=== PATIENT | male | born 1945 | race Caucasian/White ===

== ENCOUNTER 2020-04-17 08:36 | Observation (INO) ==
[2020-04-17] MEDS ORDERED: fentaNYL citrate 100 MCG/2 ML VIAL ONE (09:02)
[2020-04-17] MEDS ORDERED: MIDAZOLAM HCL 5 MG/ML 1 ML VIAL ONE (09:02)
[2020-04-17] MEDS ORDERED: CEFAZOLIN 250 MG/ML 1 GM VIAL ONE (09:29)
[2020-04-17] MEDS ORDERED: LIDOCAINE HCL 1% 20 ML VIAL ONE (09:33)
[2020-04-17] MEDS ORDERED: BUPIVACAINE 0.25% 30 ML VIAL ONE (09:33)
[2020-04-17] MEDS ORDERED: BACITRACIN INJ 50,000 UNIT VIAL ONE (09:33)
--- NOTE | 2020-04-17 09:36 | History & Physical Bridge Note ---
Date of Service April 17, 2020 History & Physical Bridge Note I have examined the patient, reviewed the History & Physical and in the interval since the performance of the History & Physical I have noted the following changes of clinical significance: no changes noted
--- NOTE | 2020-04-17 09:36 | Pre Anesthesia Assessment ---
Date of Service April 17, 2020 Pre Sedation Assessment Cardiovascular + bradycardic Respiratory normal respiratory effort, lungs clear to auscultation Pre-Sedation Airway Assessment Smoking Status: Never smoker Hx Sleep Apnea: No Hx Difficult Intubation: No Short, Thick Neck: No Thyromental Distance: < 3.5 Finger Breadths Oral Cavity: + Dental Abnormalities ASA: ASA3 NPO Status Date of Last Intake of Fluids: 04/16/20 Date of Last Intake of Solid Food: 04/16/20 Procedure Planning Contraindications for Sedation: none Current Medications Reviewed: Yes Notes The planned sedation has been discussed with the patient. Informed Consent was obtained. I have identified the patient, determined the appropriateness of sedation and have assessed the patient immediately prior to the procedure. All medicine(s) and interventions are by my order.
--- NOTE | 2020-04-17 11:08 | Post Anesthesia Assessment ---
Date of Service April 17, 2020 Post Sedation Assessment Vital Signs Temp Resp BP Pulse Ox 04/17/20 09:19 36.9 C 18 144/74 H 96 Recovery Score Activity: Moves 4 extremities Respiration: Deep Breath/Cough Circulation: +/-20% PreAnes Value Consciousness: Fully Awake Oxygen Saturation: > 92% On Room Air Discharge Sedation Level of Care: Fast Track Phase II Post Sedation Plan On clinical assessment, the patient appears to have tolerated the sedation without complications. Patient is recovering as anticipated. Patient will continue to be monitored by nursing and may be discharged when sedation discharge criteria are met per below protocol. Upon Completions of procedure up to 15 minutes continue every 5 minute vital signs and the P.A.R. score; then discharge to a Phase I or Fast Track to Phase II per the following guidelines: * Discharge Patient to appropriate Phase II area if PAR is 8 or greater or return to pre- procedure baseline. The post - procedure orders will be as directed. * If PAR score is less than 8 or not return to pre-procedure baseline then patient will follow Phase I monitoring till PAR is reached for Phase II. The Phase I may be done in procedure room or may call to secure a Phase I area. * If naloxone or flumazenil are used for reversal, hold in Phase I for continued monitoring from when last reversal dose was given for a minimum of 60 minutes or longer pending the nurse and/or physician discretion of patient condition before discharge to Phase II. Please call the Sedation Physician to re-evaluate and complete post-note for discharge to Phase II area. Do NOT discharge from procedure sedation or Phase 1 until post- sedation evaluation note is complete by procedure /sedation MD Sedation Discharge Instructions to be given to the patient at discharge to home.
--- NOTE | 2020-04-17 11:09 | Operative Report ---
Post Operative Report Pre & Post Diagnosis SSS, ICM ICD at [facility] Operation Date: 04/17/20 09:30 <No data on this case meets the specified criteria> I identified the patient and participated in the time-out.: Yes Procedure Operation Date: 04/17/20 09:30 Actual Procedures p Insertion ICD w/Existing Single - Rosita Mcfarlane DO Surgeon Rosita Mcfarlane, Pharmacy Director none Estimated Blood Loss 10 Findings Consistent with Post-Op Diagnosis Specimens none Description of Procedure see official report I attest to the content of the Intraoperative Record and any orders documented therein. Any exceptions are noted below.
[2020-04-17] MEDS ORDERED: OXYCODONE/ACETAMINOPHEN 5mg/325mg TAB PO PRN (11:10)
[2020-04-17] MEDS ORDERED: ACETAMINOPHEN 325 MG TAB PO PRN (11:10)
[2020-04-17] MEDS ORDERED: NORCO 5/325MG HOMEPACK PO PRN (11:11)
[2020-04-17] MEDS ORDERED: EPINEPHRINE ADULT AUTO-INJECT 0.3 MG SYR IM PRN (11:11)
[2020-04-17] MEDS ORDERED: NITROGLYCERIN SL 0.4 MG/TAB TAB SL PRN (11:11)
--- NOTE | 2020-04-17 11:17 | Discharge Summary ---
Date of Service April 18, 2020 Admission HPI Per Admitting Provider +fatigue and SOB Admission Exam Per Admitting Provider aaox3, NAD NC/AT, EOMI Supple No JVD Nrl S1/S2, No murmur CTA b/l no w/r/r soft nt/nd no LE edema b/l skin intact no focal deficits Principal Diagnosis SSS s/p upgrade to dual chamber ICD Discharge Exam aaox3, NAD NC/AT, EOMI Supple No JVD Nrl S1/S2, No murmur CTA b/l no w/r/r soft nt/nd no LE edema b/l skin intact no focal deficits left pectoral incision intact, no hematoma mild ecchymosis Discharge Data Allergies Allergy/AdvReac Type Severity Reaction Status Date / Time pioglitazone Allergy Intermediate severe Verified 04/17/20 09:42 headaches Procedures Performed Operation Date: 04/17/20 09:30 Actual Procedures p Insertion ICD w/Existing Single - Rosita Mcfarlane DO s Venogram, Unilateral - Rosita Mcfarlane DO Ordered Studies CXR: No PTX, leads in position ECG: SR ICD Interrogation: Normal function Stable lead testing since implant 04/17/20 06:38 CL Cath Imgs for PACS use only Stat Hospital Course (1) SSS (sick sinus syndrome): (2) Ischemic cardiomyopathy with implantable cardioverter-defibrillator (ICD): (3) Left ventricular apical thrombus: Total Time Total Time Spent Total Time Spent (In Minutes): 40 Total Time Includes: Examination of the Patient, Discharge Planning, Medication Reconciliation and Other Discharge Plan Discharge Items Patient Disposition: Home - Self-Care Reason For Visit: SSS, IVD UPGRADE Discharge Diagnosis: SSS and ICM s/p upgrade to dual chamber ICD Condition on Discharge: Good Activity: As commented below Activity Comment: do not lift the left elbow over the left shoulder for 1 month Lifting: No more than 10 pounds Lifting Comment: do not lift more than 10 pounds with the left arm for 2 weeks Bathing: Keep incision dry Bathing Comment: keep dressing on and dry until wound check next week Sexual Activity: After two weeks Non-emergency contact: Investigative Writer Call non-emergency contact if: you have any medication questions Follow-up/Referrals: Shreyas Miller MD [Primary Care Provider] - Diet: Heart Healthy Addtl Attending Provider Instructions: device and wound check next week at [facility] cardiology If you notice any swelling at the device area call [facility]iology immediately Pending Studies at Discharge: No Stand-Alone Forms: My [facility], Smoking Cessation Medications and DC Order Prescriptions: Continued aspirin [Aspir-81] 81 mg Tablet,Delayed Release (Dr/Ec) 81 mg PO QAM RF: 0 atorvastatin 80 mg Tablet 80 mg PO HS RF: 0 carvedilol 12.5 mg Tablet 12.5 mg PO BID RF: 0 digoxin 250 mcg Tablet 250 mcg PO HS RF: 0 epinephrine 0.3 mg/0.3 mL Auto-Injector 0.3 mg IM UD PRN (Reason: Anaphylaxis) RF: 0 hydralazine 25 mg Tablet 25 mg PO BID RF: 0 hydrocodone-acetaminophen [[place]] 5-325 mg Tablet 1 tab PO BID PRN (Reason: Pain) RF: 0 insulin aspart U-100 [Novolog U-100 Insulin aspart] 100 unit/mL Solution 6 units subcut HS RF: 0 insulin aspart U-100 [Novolog U-100 Insulin aspart] 100 unit/mL Solution 22 unit SUBCUT QDD RF: 0 insulin aspart U-100 [Novolog U-100 Insulin aspart] 100 unit/mL Solution 20 unit SUBCUT QDL RF: 0 Lantus U-100 Insulin 100 unit/mL Solution 30 unit SUBCUT BID RF: 0 isosorbide mononitrate 60 mg Tablet Extended Release 24 Hr 60 mg PO QAM RF: 0 lisinopril 2.5 mg Tablet 2.5 mg PO HS RF: 0 metformin 1,000 mg Tablet 1,000 mg PO BID RF: 0 nitroglycerin [Nitrostat] 0.4 mg Tablet, Sublingual 0.4 mg Sublingual UD PRN (Reason: Chest Pain) RF: 0 warfarin 5 mg Tablet 5 mg PO 6XWK RF: 0 warfarin 2.5 mg Tablet 2.5 mg PO WK RF: 0 cetirizine [Zyrtec] 10 mg Tablet 10 mg PO QAM RF: 0 tamsulosin 0.4 mg Capsule 0.4 mg PO QPM RF: 0 empagliflozin 25 mg Tablet 25 mg PO QAM RF: 0 ferrous sulfate [Iron (ferrous sulfate)] 325 mg (65 mg iron) Tablet 325 mg PO Q OTHER DAY RF: 0 Discharge Orders: Discharge Order (Routine); Ordered 04/18/20 Ordered By: Rosita Mcfarlane Admission Data Admit Date/Time: 04/17/20 12:37 Attending Provider: Rosita Mcfarlane Admit Provider: Rosita Mcfarlane Primary Care Provider: Shreyas Miller
[2020-04-17] MEDS ORDERED: INSULIN ASPART PER UNIT SQ SCH ×3 (11:30→21:00)
[2020-04-17 13:30] LABS: INR 1.6 (0.9-1.1); Prothrombin Time 16.8 Seconds (9.0-12.0)
[2020-04-17 13:36] LABS: Creatinine Clr Calc Pharmacy 70.9 ml/min; Est GFR (African American) 96.5; Est GFR (Non-African American) 83.3
[2020-04-17] MEDS ORDERED: GLUCOSE 40% GEL 15 GM TUBE PO PRN (14:00)
[2020-04-17] MEDS ORDERED: CARBOHYDRATES FOR HYPOGLYCEMIA PO PRN (14:00)
[2020-04-17] MEDS ORDERED: GLUCOSE 10 TABS/TUBE PO PRN (14:00)
[2020-04-17] MEDS ORDERED: DEXTROSE 50% 50 ML SYRINGE IV PRN (14:00)
[2020-04-17] MEDS ORDERED: GLUCAGON FOR INJ 1 MG VIAL IM PRN (14:00)
--- NOTE | 2020-04-17 15:44 | Electrocardiogram Report ---
Test Reason : Blood Pressure : / mmHG Vent. Rate : 071 BPM Atrial Rate : 071 BPM P-R Int : 256 ms QRS Dur : 126 ms QT Int : 376 ms P-R-T Axes : 062 -61 103 degrees QTc Int : 408 ms Sinus rhythm with 1st degree A-V block Left axis deviation Non-specific intra-ventricular conduction block Minimal voltage criteria for LVH, may be normal variant Nonspecific T wave abnormality Abnormal ECG When compared with ECG of 25-NOV-2018 22:25, Criteria for Anteroseptal infarct are no longer Present T wave inversion more evident in Lateral leads Confirmed by Bakari Cuevas ([id number]) on 04/17/2020 3:43:44 PM Referred By: Rosita Mcfarlane Confirmed By:John Cuevas
[2020-04-17] MEDS ORDERED: WARFARIN SOD 5 MG TAB PO SCH (16:00)
[2020-04-17] MEDS: METFORMIN HCL 500 MG TAB PO SCH (16:51)
[2020-04-17] MEDS: INSULIN ASPART 100 UNITS/ML 3 ML PEN SC SCH ×2 (16:52→20:24)
[2020-04-17] MEDS: carvediloL 12.5 MG TAB PO SCH (20:20)
[2020-04-17] MEDS: INSULIN GLARGINE SOLOSTAR 100 UNITS/ML 3 ML PEN SC SCH (20:23)
[2020-04-17] MEDS ORDERED: ATORVASTATIN 40 MG TAB PO SCH (21:00)
[2020-04-17] MEDS ORDERED: DIGOXIN 0.25 MG TAB PO SCH (21:00)
[2020-04-17] MEDS ORDERED: TAMSULOSIN HCL 0.4 MG CAP PO SCH (21:00)
--- NOTE | 2020-04-18 07:44 | XRay Report ---
XR chest 2V PA/lateral CLINICAL HISTORY: Pacemaker replacement COMPARISON STUDY: November 2018 FINDINGS: The heart is mildly enlarged. There is aortic tortuosity. The single chamber ICD has been r eplaced with a dual chamber ICD. There is no pneumothorax. Lead position is unremarkable. There is no focal pulmonary consolidation. There are no pleural effusions. IMPRESSION: No evidence of pneumothorax status post left subclavian pacemaker placement ACT 112: Negative or not required by law. Electronically signed by: Brandon Munoz M.D. 04/18/2020 7:42 AM
[2020-04-18] MEDS: INSULIN ASPART 100 UNITS/ML 3 ML PEN SC SCH (07:49)
[2020-04-18] MEDS: carvediloL 12.5 MG TAB PO SCH (07:49)
[2020-04-18] MEDS: METFORMIN HCL 500 MG TAB PO SCH (07:50)
[2020-04-18] MEDS: INSULIN GLARGINE SOLOSTAR 100 UNITS/ML 3 ML PEN SC SCH (08:00)
[2020-04-18 08:08] VITALS: PULSE 70
[2020-04-18] MEDS ORDERED: ISOSORBIDE MONO EXTENDED REL 60 MG TABCR PO SCH (09:00)
[2020-04-18] MEDS ORDERED: CETIRIZINE HCL 10 MG TABLET PO SCH (09:00)
[2020-04-18] MEDS ORDERED: FERROUS SULFATE 325 MG TAB PO SCH (09:00)
[2020-04-18] MEDS ORDERED: ASPIRIN 81 MG ECTAB PO SCH (09:00)
[2020-04-18 11:14] VITALS: BP 127/65; TEMP 97.7; O2SAT 94
[2020-04-23] MEDS ORDERED: WARFARIN SOD 2.5 MG TAB PO SCH (16:00)
--- NOTE | 2020-04-26 12:45 | Coding Letter ---
A supporting diagnosis is required for the test/procedure performed on this patient in order for us to be reimbursed by the patient's insurance. Please provide a supporting diagnosis for the following test/procedure listed below next to the test name along with your signature. *If there is no additional diagnosis for this patient that would support the following test/procedure please document that below next to the test/procedure. Test(s)/Procedure(s) that require a supporting diagnosis: * CPT 11568 Insrt pulse gen w/singl lead DIAGNOSIS: Provider Signature: Date: Thank you Stacey Oviedo [employer] Once completed, please kindly fax back to [phone] For questions please call [phone] [facility]
--- NOTE | 2020-05-02 10:30 | Operative Report (OR) ---
DATE OF OPERATION: 04/17/2020 PREOPERATIVE DIAGNOSES: Sick sinus syndrome, ischemic cardiomyopathy, single chamber ICD at elective replacement indicator. POSTOPERATIVE DIAGNOSES: Sick sinus syndrome, ischemic cardiomyopathy, single chamber ICD at elective replacement indicator. PROCEDURE: Upgrade from a single chamber implantable cardiac defibrillator to a dual chamber rate responsive implantable cardiac defibrillator along with the peripheral venogram under fluoroscopic guidance. SURGEON: Rosita Mcfarlane DO. ASSISTANTS: None. ANESTHESIA: Monitored conscious sedation administered under my supervision by Shalonda Miles. Start time 9:56, end time 11:06. Total of 4 mg of Versed, 100 mcg of fentanyl. INTRAVENOUS FLUIDS: 30 mL. ANTIBIOTICS: 1 gram of Ancef. CONTRAST: 10 mL. URINE OUTPUT: None. SPECIMENS: None. FINDINGS: See below. DRAINS: None. INDICATIONS: This 74-year-old gentleman with past medical history for ischemic cardiomyopathy where he is status post an ICD in 01/2011, coronary artery disease, history of PCI to the dominant circ in 05/2011, chronic LAD occlusion with recanalization with a remote anterior apical MS with apical aneurysm in 1991, diabetes on insulin, paroxysmal atrial fibrillation on digoxin and Coumadin as well as Coreg, CHADS2-VASc score of 5, hypertension, hyperlipidemia, emphysema, and gastroesophageal reflux disease and most recently evidence of sick sinus syndrome. He was recommended upgrade to a dual chamber pacemaker and a generator change. CONSENT: Consent was obtained prior to the patient going into electrophysiology lab. The patient was informed of the risks, benefits and alternative procedure. Risks include but not limited to sudden cardiac , cardiac arrhythmias, cerebrovascular accident, myocardial infarction, injury to the blood vessels, chamber of the heart, lung, bleeding, and infection. The patient understood these risks and agreed with procedure as planned. Informed consent was obtained. DESCRIPTION OF THE PROCEDURE: The patient was brought into the electrophysiology lab in a fasting state. He was connected to continuous patient monitor. Timeout was performed to ensure patient identity and procedure correctly. He received prophylactic antibiotics prior to incision. He was prepped and draped over the left infraclavicular space in normal surgical standard fashion. Monitored conscious sedation was given throughout the procedure for patient's comfort level. [place] precaution was obtained throughout the procedure. 10 mL of 1% lidocaine, bupivacaine mixture were given over the prior surgical incision. Incision was made with prior surgical incision. Blunt dissection performed down to the pulse generator and that was removed from the body and then a peripheral venogram was performed to identify the venous system and subclavian access was obtained through a needlestick without any problems. The guidewire was inserted without any resistance. An 8-Martiniquais sheath was inserted over the guidewire without any resistance. Dilator was removed and the right atrial lead was advanced into right atrium and positioned into the right atrial appendage. I did have to reposition it once. I ended up using the preformed J kim curve. There was adequate pacing and sensing thresholds and no diaphragmatic stimulation with high output pacing. The 8-Martiniquais sheath was peeled away and lead was fixated to pectoralis muscle using 0 silk suture. The capsule was disrupted inferiorly and caudally to allow for new blood flow, right ventricular lead was checked intraoperatively, see below for results. Then the pocket was flushed with copious amounts of bacitracin saline wash and inspected for hemostasis. The new generator was attached to the leads making sure that the pins were in appropriate position, passed set screw and set screws were all tightened. Pulse generator was then placed in a Tyrx pouch followed then by being placed in the pocket. The incision was then closed in 3-layer fashion, making sure that the leads were lying flat beneath the device. The incision was then closed in 3-layer fashion with 2-0 Vicryl interrupted suture followed by 3-0 Vicryl interrupted suture followed by 4-0 Monocryl running stitch and Dermabond was applied followed by a Telfa and micropore dressing. EQUIPMENT: 1. Explanted generator is a Eduin II [id number], serial number [id number], implanted 01/06/2011. 2. New pulse generator is a Medtronic Evera MRI XTDR SureScan [id number], serial number [id number]. 3. Right atrial lead Medtronic 5076-52 cm, serial number [id number]. 4. Right ventricular lead, 6935-65 cm, serial number [id number]. INTRAOPERATIVE TESTIN. Right atrial lead: P waves 2.4 millivolts, impedance 510 ohms, threshold 2 volts at 0.4 milliseconds. 2. Right ventricular lead: R waves 9.8 millivolts, impedance 457 ohms, threshold 1 volt at 0.4 milliseconds. FINAL PARAMETERS TO THE DEVICE: 1. Right atrial lead: P waves 2 millivolts, impedance 437 ohms, threshold 1.5 volts at 0.4 milliseconds. 2. Right ventricular lead: R-wave 10.1 millivolts, impedance 399 ohms, threshold 1 volt at 0.4 milliseconds. 3. The RV coil was 78 ohms. FINAL PARAMETERS: MVP-R 60/130, right atrial amplitude 3.5 volts, pulse width 0.4 milliseconds, sensitivity 0.3 millivolts. Right ventricular amplitude 2 volts, pulse width 0.4 milliseconds, sensitivity 0.3 millivolts, a VT monitor zone at 140 beats per minute for 32 detection intervals, VT zone 167 beats per minute for 16 detection intervals and VF zone at 200 beats per minute for 30/40 detection intervals. IMPRESSION: Successful upgrade from a single chamber rate responsive implantable cardiac defibrillator to a dual chamber rate responsive implantable cardiac defibrillator along with peripheral venogram under fluoroscopic guidance secondary to sick sinus syndrome and ischemic cardiomyopathy and ICD at elective replacement indicator. PLAN: Monitor patient overnight, 12-lead ECG, chest x-ray. He cannot lift left elbow or left shoulder for 1 month. He cannot lift more than 10 pounds with the left arm for 2 weeks. He is to leave the dressing on and dry until his wound check next week. I attest to the content of the Intraoperative Record and any orders documented therein. Any exception s are noted below.
== END 2020-04-18 12:19 | disposition home or self-care (01) ==
LOC: EP 08:36 → 2S 08:36

== ENCOUNTER 2022-04-17 12:46 | Inpatient (IN) ==
[2022-04-17] MEDS ORDERED: PANTOprazole 80 MG in DEXTROSE 5% 100 ML IV ONE (13:06)
[2022-04-17] MEDS ORDERED: SODIUM CHLORIDE 0.9% 1000ML 1,000 ML IV SCH (13:15)
[2022-04-17 13:30] LABS: Basophils # (auto) 0.07 K/uL (0-0.2); Basophils % (auto) 0.7 %; Eosinophils # (auto) 0.38 K/uL (0-0.50); Eosinophils % (auto) 3.6 %; Hematocrit (blood only) 25.1 % (40.1-51.0); Hemoglobin 7.9 g/dl (14.0-18.0); Immature Granulocytes # (auto) 0.04 K/uL (0.00-0.02); Immature Granulocytes % (auto) 0.4 %; Lymphocytes # (auto) 2.74 K/uL (1.2-3.4); Mean Corpuscular Hemoglobin 29.5 pg (25.0-34.0); Mean Corpuscular Hgb Conc 31.5 g/dL (32.0-36.0); Mean Corpuscular Volume 93.7 fL (80.0-100.0); Mean Platelet Volume 10.5 fL (9.4-12.4); Monocytes # (auto) 1.39 K/uL (0.24-0.82); Monocytes % (auto) 13.2 %; Neutrophils # (auto) 5.93 K/uL (1.4-6.5); Neutrophils % (auto) 56.1 %; Platelet Count 292 K/uL (130-400); RDW Coefficient of Variation 14.1 % (11.5-14.5); RDW Standard Deviation 47.4 fL (36.4-46.3); Red Blood Count 2.68 M/uL (4.63-6.08); White Blood Count 10.55 K/ul (4.8-10.8)
[2022-04-17 13:56] LABS: BUN Creatinine Ratio 19.2 (10-20); Creatinine Clr Calc Pharmacy 49.5 ml/min; Est GFR (Non-African American) 55.2 ml/min; INR 4.5 (0.9-1.1); Partial Thromboplastin Ratio 1.7
[2022-04-17 14:03] LABS: Polychromasia 1+
[2022-04-17 14:11] LABS: Partial Thromboplastin Time 45.6 Seconds (21.0-31.0)
[2022-04-17] MEDS ORDERED: PHYTONADIONE 5 MG in DEXTROSE 5% 50 ML IV ONE (14:15)
[2022-04-17] MEDS: PANTOprazole 40 MG in DEXTROSE 5% 100 ML IV SCH ×3 (14:39→23:07)
[2022-04-17] MEDS ORDERED: SODIUM CHLORIDE 0.9% 250 ML IV PRN (14:46)
--- NOTE | 2022-04-17 15:21 | Electrocardiogram Report ---
Test Reason : Blood Pressure : / mmHG Vent. Rate : 080 BPM Atrial Rate : 080 BPM P-R Int : 288 ms QRS Dur : 138 ms QT Int : 382 ms P-R-T Axes : 090 -65 106 degrees QTc Int : 440 ms Sinus rhythm with 1st degree A-V block with occasional Premature ventricular complexes Left axis deviation Right bundle branch block Cannot rule out Anteroseptal infarct (cited on or before 13-NOV-1997) T wave abnormality, consider lateral ischemia Abnormal ECG When compared with ECG of 28-JUN-2020 04:24, Premature ventricular complexes are now Present T wave inversion less evident in Lateral leads Confirmed by Bakari Cuevas ([id number]) on 04/17/2022 3:21:16 PM Referred By: REFERRED SELF Confirmed By:John Cuevas
--- NOTE | 2022-04-17 15:52 | History & Physical Report ---
Date of Service April 17, 2022 Assessment & Plan (1) Anemia: (2) Heme positive stool: (3) Supratherapeutic INR: (4) Acute renal insufficiency: (5) Ischemic cardiomyopathy with implantable cardioverter-defibrillator (ICD): (6) Paroxysmal A-fib: (7) Diabetes: (8) Hypertension: Plan This is a 76-year-old male who has a significant past medical history of insulin-dependent T2DM, ischemic cardiomyopathy with defibrillator in place, SSS status post PPM, history of left ventricular apical thrombus, PAF anticoagulated on warfarin, CAD, HTN, HLD who presents [facility] ED [facility]. Anemia Heme positive stool Supratherapeutic INR Possible UGIB Iron deficency Anemia Admit to telemetry Type and cross, transfuse [address] 1 on hold Blood consent obtained by Dr. Salcedo continue PPI bolus and gtt clear liquid diet, NPO after midnight consult GI, likely EGD in a.m. hold warfarin, 5mg Vit K given h/h and inr @ 2200 anemia panel ordered - ferritin low at 7.6, on iron 3x weekly consider Venofer infusions once hgb stable, increase iron to daily and titrate as pt able to tolerate egd 06/25 - normal c scope 03/2020 - polyps with polypectomy Acute renal insufficiency mild elevation in bun/cr from baseline likely 2/2 to anemia follow bmp Ischemic Cardiomyopathy with ICD In place hx of SSS s/p ppm CAD HTN HLD Continue aspirin, Coreg, hydralazine, Imdur, lisinopril and rosuvastatin Daily weights, strict I's and O's Currently euvolemic Monitor volume status with transfusion Last echocardiogram 12/2020 revealed EF 30 to 35%, AV sclerosis, mild TR Insulin-dependent T2DM Last A1c 7.1 on 04/15/2022 Lantus/NovoLog per protocol Hold metformin and Jardiance Consult with pharmacy, appreciate their input PAF Supratherapeutic INR Continue digoxin and carvedilol Warfarin on hold due to elevated INR and concern for GI bleeding Monitor daily INR, currently regular rate and rhythm DVT prophylaxis: None in setting of elevated INR and suspected GI bleed Dispo: PCU, likely EGD in a.m. n.p.o. after midnight Full code PCP: Dr. Miller Pt was seen and examined in collaboration with Dr. Salcedo, please see addendum History of Present Illness Chief Complaint: [facility] to [facility] h[facility]. Primary Care Provider: Shreyas Miller MD This is a 76-year-old male who has a significant past medical history of insulin-dependent T2DM, ischemic cardiomyopathy with defibrillator in place, SSS status post PPM, history of left ventricular apical thrombus, PAF anticoagulated on warfarin, CAD, HTN, HLD who presents to ED [facility] to [facility] due to [facility] hemoglobin. Over the last 2 months patient has reported increase in generalized weakness, easy fatigability and lightheadedness/dizziness. Over the past 2 weeks he felt as if he could pass out especially with quick movements. He denies any nikita syncope. He denies any recent illness, fever, chills, sweats, chest pain, shortness of breath, HARKINS, palpitations, nausea, vomiting, abdominal pain, postprandial pain, hematuria, dysuria, increased urgency or frequency with urination or epistaxis. He has been moving his bowels but does not look at them and is unsure if he has any blood in his stool or dark tarry stool. He denies any prior history of GI bleeding. He did have an EGD for review and outpatient records in June 2021 which was relatively unremarkable. He is on long-term anticoagulation secondary to A. fib. He has been taking Coumadin for, "many years." He denies any prior history of transfusion. He did follow with hematology in the past secondary to low hemoglobin and was told to take iron. In ED patient remained hemodynamically stable. His hemoglobin and hematocrit was 7.9 and 25.1 respectively. His INR was supratherapeutic at 4.5. His BUN and creatinine was mildly elevated at 24 and 1.25. He was started on Protonix bolus and drip. He was Hemoccult positive in ED. He also received 40 mg IV vitamin K. Allergies Allergy/AdvReac Type Severity Reaction Status Date / Time house dust mite Allergy Severe facial Verified 06/25/21 12:45 swelling venom-honey bee Allergy Severe Anaphylaxis Verified 06/25/21 12:45 pioglitazone Allergy Intermediate severe Verified 06/25/21 12:45 headaches Home Medications Medication Instructions Recorded Confirmed Type carvedilol 12.5 mg tablet 6.25 mg PO BID 11/25/18 04/17/22 History digoxin 250 mcg (0.25 mg) tablet 250 mcg PO HS 11/25/18 04/17/22 History epinephrine 0.3 mg/0.3 mL 0.3 mg IM UD PRN Anaphylaxis 11/25/18 04/17/22 History injection, auto-injector hydralazine 25 mg tablet 25 mg PO BID 11/25/18 04/17/22 History insulin aspart U-100 100 unit/mL See Rx Instructions .Route .COMPLEX 11/26/18 04/17/22 History subcutaneous solution (Novolog U-100 Insulin aspart) insulin glargine 100 unit/mL 60 unit subcut QAM 11/26/18 04/17/22 History subcutaneous solution (Lantus U-100 Insulin) isosorbide mononitrate 60 mg 60 mg PO QAM 11/26/18 04/17/22 History tablet,extended release 24 hr lisinopril 2.5 mg tablet 2.5 mg PO HS 11/26/18 04/17/22 History metformin 1,000 mg tablet 1,000 mg PO BID 11/26/18 04/17/22 History nitroglycerin 0.4 mg sublingual 0.4 mg sublingual UD PRN Chest Pain 11/26/18 04/17/22 History tablet (Nitrostat) warfarin 5 mg tablet 5 mg PO DAILY 11/26/18 04/17/22 History cetirizine 10 mg tablet (Zyrtec) 10 mg PO QAM 02/29/20 04/17/22 History empagliflozin 25 mg tablet 25 mg PO QAM 02/29/20 04/17/22 History ferrous sulfate 325 mg (65 mg 325 mg PO 3XWK 02/29/20 04/17/22 History iron) tablet (Iron (ferrous sulfate)) tamsulosin 0.4 mg capsule 0.4 mg PO HS 02/29/20 04/17/22 History aspirin 81 mg tablet,delayed 81 mg PO QAM 09/20/20 04/17/22 History release hydrocodone 5 mg-acetaminophen 325 1 tab PO BID PRN Pain 04/17/22 04/17/22 History mg tablet rosuvastatin 40 mg tablet 40 mg PO DAILY 04/17/22 04/17/22 History Past Med/Surg History Medical History (Updated 04/17/22 @ 15:54 by Nadja Diaz PA-C) Anemia BPH (benign prostatic hyperplasia) CAD (coronary artery disease) s/p PCI of Cx 2010; chronic LAD occlusion with recannulation Diabetes mellitus, type 2 Emphysema of lung Heart attack --follows with Dr. Maldonado Hyperlipidemia Hypertension ICD (implantable cardioverter-defibrillator) in place originially placed 2010--medtronic @ [facility]. replacement with dual chamber @ [facility] 04/17/2020 Ischemic cardiomyopathy with implantable cardioverter-defibrillator (ICD) s/p ICD generator change with upgrade to dual chamber Left ventricular apical thrombus On Coumadin On anticoagulant therapy warfarin daily Paroxysmal A-fib On digoxin, warfarin, coreg Surgical History History of cardiac cath x2--- x1 stent @ [facility] History of colonoscopy with polypectomy last 03/08/20 History of esophagogastroduodenoscopy (EGD) last 03/08/20 History of heart artery stent (1) 2010 @ [facility] History of tonsillectomy and adenoidectomy History of tooth extraction all teeth Family History Other Cancer Heart disease No family history of adverse response to anesthesia No family history of bleeding disorder No pertinent family history Social History Smoking Status: Former smoker Second Hand Exposure: No; Hx Alcohol Use: No Hx Substance Use: No Preferred Language: Luxembourgish Communication Ability: Effective Vegetable Grower Required: No Beliefs That Will Affect Care: None marital status: Current Living Situation: Spouse Feels Safe at Home: Yes Assistive Devices: Denture - Upper, Denture - Lower, Glasses and Hearing Aid - Bilateral Review of Systems Review of Systems: All systems reviewed & are unremarkable except as noted in HPI & below Physical Exam Physical Exam: Constitutional: WD/WN, Pallor, vitals as above, NAD, sitting up in bed, pleasant, conversing easily Head: Normocephalic, Atraumatic Eyes: PERRL, conjunctivae normal, anicteric sclerae ENMT: external ear and nose normal, oropharynx normal Neck: trachea midline, no thyromegaly normal visual inspection Respiratory: normal respiratory effort, lungs clear to auscultation, no wheeze, rales, rhonchi. Normal insp/exp effort, no accessory muscle use Cardiovascular: RRR, no murmur, no edema Vessels: no JVD or carotid bruit Chest: normal inspection of chest Abdomen: normal bowel sounds, soft, nontender, no hepatosplenomegaly Musculoskeletal: no cyanosis or clubbing, extremities motor strength 5/5 Skin: no rashes, warm and dry normal turgor Neurologic: PERRL, EOMI, accommodation nl, no face palsy, no dysarthria CN's II-XI intact bilaterally and moves all extremities Psychiatric: A+Ox3, euthymic affect Lymphatic: no cervical or axillary lymphadenopathy : deferred Results & Data Results & Data ([facility]) Vital Signs (Past 12 Hours) Vital Signs Temp Pulse Pulse Resp BP BP Pulse Ox 04/17/22 15:15 36.7 C 76 19 127/54 L 96 04/17/22 14:42 73 18 106/51 L 98 04/17/22 13:17 67 16 98 04/17/22 13:17 76 16 110/46 L 98 04/17/22 12:49 36.1 C L 85 20 112/55 L 97 O2 Del Method 04/17/22 15:15 04/17/22 14:42 Room Air 04/17/22 13:17 Room Air 04/17/22 13:17 Room Air 04/17/22 12:49 Room Air Medications Administered Medication List Sodium Chloride (Nss 1000ml) 1,000 mls @ 80 mls/hr IV .[id number] [facility] Stop: 05/17/22 13:14 Last Admin: 04/17/22 13:35 Dose: 80 mls/hr Documented By: RANDALL Pantoprazole Sodium 40 mg/ (Dextrose) 100 mls @ 20 mls/hr IV Q5H [facility] Stop: 05/17/22 13:14 Last Admin: 04/17/22 14:39 Dose: 20 mls/hr Documented By: RANDALL Discontinued Medications Pantoprazole Sodium 80 mg/ (Dextrose) 120 mls @ 400 mls/hr IV NOW ONE Stop: 04/17/22 13:23 Last Infusion: 04/17/22 14:41 Dose: 0 mls/hr Documented By: Admin: 04/17/22 13:55 Dose: 400 mls/hr Documented By: RANDALL Phytonadione 5 mg/ Dextrose 50.5 mls @ 101 mls/hr IV ONE ONE Stop: 04/17/22 14:44 Last Admin: 04/17/22 15:00 Dose: 101 mls/hr Documented By: RANDALL ECG Rate (beats per minute): 80 Rhythm: normal sinus Findings: + 1st degree AV block and + PVC COVID-19 Results Results COVID-19 Adm Lab Results: RBC 2.68 M/uL (4.63-6.08) L 04/17/22 WBC 10.55 K/ul (4.8-10.8) 04/17/22 Hgb 7.9 g/dl (14.0-18.0) L 04/17/22 Hct 25.1 % (40.1-51.0) L 04/17/22 Plt Count 292 K/uL (130-400) 04/17/22 Neutrophils (%) (Auto) 56.1 % 04/17/22 Lymphocytes (%) (Auto) 26.0 % 04/17/22 Monocytes # (Auto) 1.39 K/uL (0.24-0.82) H 04/17/22 Eosinophils # (Auto) 0.38 K/uL (0-0.50) 04/17/22 Immature Granulocyte % (Auto) 0.4 % 04/17/22 Neutrophils # (Auto) 5.93 K/uL (1.4-6.5) 04/17/22 Lymphocytes # (Auto) 2.74 K/uL (1.2-3.4) 04/17/22 Monocytes # (Auto) 1.39 K/uL (0.24-0.82) H 04/17/22 Eosinophils # (Auto) 0.38 K/uL (0-0.50) 04/17/22 Basophils # (Auto) 0.07 K/uL (0-0.2) 04/17/22 Immature Granulocyte # (Auto) 0.04 K/uL (0.00-0.02) H 04/17 Polychromasia 1+ 04/17/22 Na 139 mmol/L (136-145) 04/17/22 K 4.0 mmol/L (3.5-5.1) 04/17/22 Cl 107 mmol/L (98-107) 04/17/22 CO2 24 mmol/L (21-32) 04/17/22 Anion Gap 8 (3-11) 04/17/22 BUN 24 mg/dl (6-23) H 04/17/22 Creatinine 1.25 mg/dl (0.6-1.4) 04/17/22 BUN/Creatinine Ratio 19.2 (10-20) 04/17/22 Glucose Level 97 mg/dl (70-99(Fasting)) 04/17/22 Ca 9.0 mg/dl (8.5-10.1) 04/17/22 Ferritin 7.6 ng/ml (8-388) L 04/17/22 PTT 45.6 Seconds (21.0-31.0) H* 04/17/22 INR 4.5 (0.9-1.1) H 04/17/22 SARS-CoV-2, RNA, NAAT NEGATIVE (NEGATIVE) 04/17/22 Code Status & VTE Plan Code Status FULL CODE VTE Prophylaxis Plan VTE Prophylaxis will be ordered: No Supervising Physician Co-Signing Physician Notes Patient was seen and examined independently at bedside. Chart reviewed. Case discussed with Nadja JOHNSTON and agree with the documentation above. In summary, this is a 76 year old male with h/o PAF on coumadin, ischemic CM s/p ICD, DM-2 who was sent to ED by his PCP at [facility] for low Hb. Complains of dizziness and shortness of exertion for the past few months. Denies any NSAIDs, abd pain, hematemesis, rectal bleeding. No h/o VTE, TIA, CVA. On exam- AAO, lying comfortably in bed, on room air, chest clear, heart sounds regular, normal, abd benign, no edema. Hemoccult positive in ED. Found to have Hb drop from 14.5 in 09/2021 to 7.9 today. INR 4.5 and was reversed with vit K. Transfused 1 U of PRBC. Recheck Hb and transfuse as needed. On iron pills 3/wk for few years but still iron deficient in labs- will give iv venofer D1/3. States had EGD/colonoscopy 4 years back and was said to be unremarkable. Trend H&H and transfuse as needed but low suspicion for acute bleeding, likely slow ongoing gi bleeding. Continue IV PPI. Hold coumadin until cleared by GI. Repeat INR and Hb in am. NPO after midnight for possible endoscopic evaluation tomorrow. GI consulted. Rest as per the note above. Daughter updated at bedside.
[2022-04-17 15:58] LABS: Ferritin 7.6 ng/ml (8-388)
[2022-04-17 16:06] LABS: Folate (Folic Acid) 22.01 ng/ml (>5.38)
[2022-04-17] MEDS: IRON SUCROSE 400 MG in SODIUM CHLORIDE 0.9% 250 ML IV SCH (18:34)
--- NOTE | 2022-04-17 18:41 | Emergency Department Note ---
History of Present Illness General Chief complaint: Referred by Doctor Stated complaint: internal bleeding, Dr mendoza Time Seen by Provider: 04/17/22 12:55 History of Present Illness Provider complaint: Abnormal blood work Associated symptoms: + weakness; no chest pain, no cough, no fever/chills, no headaches, no nausea/vomiting or no shortness of breath 76-year-old male presents emergency department for abnormal blood work. Patient reports that his PCP told him to come to the emergency department because they thought he had internal bleeding. Patient reports fatigue. He denies any chest pain difficulty breathing melena hematochezia hematuria or dysuria. No fevers. Home Medications Medication Instructions Recorded Confirmed Type carvedilol 12.5 mg tablet 6.25 mg PO BID 11/25/18 04/17/22 History digoxin 250 mcg (0.25 mg) tablet 250 mcg PO HS 11/25/18 04/17/22 History epinephrine 0.3 mg/0.3 mL 0.3 mg IM UD PRN Anaphylaxis 11/25/18 04/17/22 History injection, auto-injector hydralazine 25 mg tablet 25 mg PO BID 11/25/18 04/17/22 History insulin aspart U-100 100 unit/mL See Rx Instructions .Route .COMPLEX 11/26/18 04/17/22 History subcutaneous solution (Novolog U-100 Insulin aspart) insulin glargine 100 unit/mL 60 unit subcut QAM 11/26/18 04/17/22 History subcutaneous solution (Lantus U-100 Insulin) isosorbide mononitrate 60 mg 60 mg PO QAM 11/26/18 04/17/22 History tablet,extended release 24 hr lisinopril 2.5 mg tablet 2.5 mg PO HS 11/26/18 04/17/22 History metformin 1,000 mg tablet 1,000 mg PO BID 11/26/18 04/17/22 History nitroglycerin 0.4 mg sublingual 0.4 mg sublingual UD PRN Chest Pain 11/26/18 04/17/22 History tablet (Nitrostat) warfarin 5 mg tablet 5 mg PO DAILY 11/26/18 04/17/22 History cetirizine 10 mg tablet (Zyrtec) 10 mg PO QAM 02/29/20 04/17/22 History empagliflozin 25 mg tablet 25 mg PO QAM 02/29/20 04/17/22 History ferrous sulfate 325 mg (65 mg 325 mg PO 3XWK 02/29/20 04/17/22 History iron) tablet (Iron (ferrous sulfate)) tamsulosin 0.4 mg capsule 0.4 mg PO HS 02/29/20 04/17/22 History aspirin 81 mg tablet,delayed 81 mg PO QAM 09/20/20 04/17/22 History release hydrocodone 5 mg-acetaminophen 325 1 tab PO BID PRN Pain 04/17/22 04/17/22 History mg tablet rosuvastatin 40 mg tablet 40 mg PO DAILY 04/17/22 04/17/22 History Allergies Allergy/AdvReac Type Severity Reaction Status Date / Time house dust mite Allergy Severe facial Verified 06/25/21 12:45 swelling venom-honey bee Allergy Severe Anaphylaxis Verified 06/25/21 12:45 pioglitazone Allergy Intermediate severe Verified 06/25/21 12:45 headaches Past Med/Surg History Medical History Anemia BPH (benign prostatic hyperplasia) CAD (coronary artery disease) s/p PCI of Cx 2010; chronic LAD occlusion with recannulation Diabetes mellitus, type 2 Emphysema of lung Heart attack --follows with Dr. Maldonado Hyperlipidemia Hypertension ICD (implantable cardioverter-defibrillator) in place originially placed 2010--medtronic @ [facility] [place]. replacement with dual chamber @ [facility] 04/17/2020 Ischemic cardiomyopathy with implantable cardioverter-defibrillator (ICD) s/p ICD generator change with upgrade to dual chamber Left ventricular apical thrombus On Coumadin On anticoagulant therapy warfarin daily Paroxysmal A-fib On digoxin, warfarin, coreg Surgical History History of cardiac cath x2--- x1 stent @ [facility] [place] History of colonoscopy with polypectomy last 03/08/20 History of esophagogastroduodenoscopy (EGD) last 03/08/20 History of heart artery stent (1) 2010 @ [facility] [place] History of tonsillectomy and adenoidectomy History of tooth extraction all teeth Family History Other Cancer Heart disease No family history of adverse response to anesthesia No family history of bleeding disorder No pertinent family history Social History Smoking Status: Former smoker Second Hand Exposure: No; Hx Alcohol Use: No Hx Substance Use: No Preferred Language: Citizen Of [place] Communication Ability: Effective Senior Sales Operations Analyst Required: No Beliefs That Will Affect Care: None marital status: Current Living Situation: Spouse Feels Safe at Home: Yes Assistive Devices: Denture - Upper, Denture - Lower, Glasses and Hearing Aid - Bilateral Review of Systems A total of 10 systems reviewed and were otherwise negative Physical Exam Vital Signs Vital Signs - 24 hr 04/17/22 12:49 04/17/22 13:17 04/17/22 13:17 Temperature 36.1 C L Temperature Source Temporal Artery Scan Pulse Rate 85 67 Pulse Rate [Apical] 76 Pulse Rhythm Regular Pulse Rhythm [Apical] Pulse Strength Normal Respiratory Rate 20 16 16 Respiratory Effort / Characteristics Non-Labored Spontaneous Non-Labored Respiratory Depth Normal Normal Respiratory Pattern Regular Blood Pressure 112/55 L Blood Pressure [Right Arm] 110/46 L Blood Pressure Mean 74 Blood Pressure Mean [Right Arm] 67 Blood Pressure Position Sitting Pulse Oximetry 97 98 98 Oxygen Delivery Method Room Air Room Air Room Air Sepsis Recent Fever Within 48 Hours No Sepsis New/Unexplained Change in Mental Status No Sepsis Action Taken by Nursing No Action Required 04/17/22 14:42 Temperature Temperature Source Pulse Rate Pulse Rate [Apical] 73 Pulse Rhythm Pulse Rhythm [Apical] Regular Pulse Strength Respiratory Rate 18 Respiratory Effort / Characteristics Non-Labored Respiratory Depth Normal Respiratory Pattern Regular Blood Pressure Blood Pressure [Right Arm] 106/51 L Blood Pressure Mean Blood Pressure Mean [Right Arm] 69 Blood Pressure Position Pulse Oximetry 98 Oxygen Delivery Method Room Air Sepsis Recent Fever Within 48 Hours Sepsis New/Unexplained Change in Mental Status Sepsis Action Taken by Nursing Physical Exam GENERAL: He is oriented to person, place, and time. He appears well-developed and well-nourished. He does not appear distressed. HENT: Exam performed. - Head: Normocephalic and atraumatic. - Right Ear: External ear normal. No mastoid tenderness. - Left Ear: External ear normal. No mastoid tenderness. - Mouth/Throat: The oropharynx is clear and moist. No trismus in the jaw. No dental abscesses or uvula swelling. No oropharyngeal exudate or tonsillar abscesses. EYES: Conjunctivae and EOM are normal. Pupils are equal, round, and reactive to light. Right eye exhibits no discharge. Left eye exhibits no discharge. No scleral icterus. NECK: Normal range of motion. Neck supple. No JVD present. No spinous process tenderness present. No carotid bruit present. No rigidity. No tracheal deviation and normal range of motion present. No Brudzinski's sign and no Kernig's sign noted. CV: Normal rate, irregular rhythm, normal heart sounds and intact distal pulses. There is no peripheral edema. Palpable radial pulses bue. PULM/CHEST: Effort normal and breath sounds normal. No respiratory distress. No stridor. He has no wheezes. He has no rales. - Chest Wall: He exhibits no tenderness. ABD: The abdomen is soft. Bowel sounds are normal. He has no distension. No mass is present. There is no tenderness. There is no rebound, no guarding, no Murp hy's sign and no tenderness at McBurney's point. Rovsig negative. Rectal: Melanotic stools that are Hemoccult positive. MUSC/SKEL: Normal range of motion. There is no peripheral edema, tenderness or d eformity. LYMPH: No cervical adenopathy. NEURO: He is alert and oriented to person, place, and time. He has normal strength. No cranial nerve deficit or sensory deficit. Coordination and gait normal. GCS eye subscore is 4. GCS verbal subscore is 5. GCS motor subscore is 6. Cerebellar tests wnl. SKIN: Skin is warm and dry. He is not diaphoretic. PSYCH: He has a normal mood and affect. Behavior is normal. Judgment and thought content normal. Course Course 1255: The patient was evaluated in room B10. A complete history and physical exam was performed Cardiac monitoring: An order was placed for continuous cardiac monitoring. The monitor shows a rate of 80 with sinus rhythm 1405: Vital signs stable. Labs show hemoglobin 7.9. INR is 4.5. Vitamin K IV ordered for the patient. Patient will be admitted to the [facility] team. Administered Medications Sodium Chloride (Nss 1000ml) 1,000 mls @ 80 mls/hr IV .[id number] [facility] Stop: 05/17/22 13:14 Last Admin: 04/17/22 13:35 Dose: 80 mls/hr Documented By: RANDALL Pantoprazole Sodium 40 mg/ (Dextrose) 100 mls @ 20 mls/hr IV Q5H EMELYN Stop: 05/17/22 13:14 Last Admin: 04/17/22 14:39 Dose: 20 mls/hr Documented By: RANDALL Discontinued Medications Pantoprazole Sodium 80 mg/ (Dextrose) 120 mls @ 400 mls/hr IV NOW ONE Stop: 04/17/22 13:23 Last Infusion: 04/17/22 14:41 Dose: 0 mls/hr Documented By: Admin: 04/17/22 13:55 Dose: 400 mls/hr Documented By: RANDALL Phytonadione 5 mg/ Dextrose 50.5 mls @ 101 mls/hr IV ONE ONE Stop: 04/17/22 14:44 Last Infusion: 04/17/22 16:16 Dose: 0 mls/hr Documented By: Admin: 04/17/22 15:00 Dose: 101 mls/hr Documented By: RANDALL Medical Decision Making Laboratory Data Result diagrams: 04/17/22 13:17 04/17/22 13:17 Lab Results 04/17/22 04/17/22 04/17/22 Range/Units 13:09 13:17 13:17 WBC 10.55 (4.8-10.8) K/ul RBC 2.68 L (4.63-6.08) M/uL Hgb 7.9 L (14.0-18.0) g/dl Hct 25.1 L (40.1-51.0) % MCV 93.7 (80.0-100.0) fL MCH 29.5 (25.0-34.0) pg MCHC 31.5 L (32.0-36.0) g/dL RDW Std Deviation 47.4 H (36.4-46.3) fL RDW Coeff of Shasha 14.1 (11.5-14.5) % Plt Count 292 (130-400) K/uL MPV 10.5 (9.4-12.4) fL Immature Gran % (Auto) 0.4 % Neut % (Auto) 56.1 % Lymph % (Auto) 26.0 % [place] % (Auto) 13.2 % Eos % (Auto) 3.6 % Baso % (Auto) 0.7 % Neut # (Auto) 5.93 (1.4-6.5) K/uL Lymph # (Auto) 2.74 (1.2-3.4) K/uL [place] # (Auto) 1.39 H (0.24-0.82) K/uL Eos # (Auto) 0.38 (0-0.50) K/uL Baso # (Auto) 0.07 (0-0.2) K/uL Immature Gran # (Auto) 0.04 H (0.00-0.02) K/uL Polychromasia 1+ PT 44.0 H (9.0-12.0) Seconds INR 4.5 H (0.9-1.1) APTT 45.6 H* (21.0-31.0) Seconds PTT Ratio 1.7 Sodium (136-145) mmol/L Potassium (3.5-5.1) mmol/L Chloride (98-107) mmol/L Carbon Dioxide (21-32) mmol/L Anion Gap (3-11) BUN (6-23) mg/dl Creatinine (0.6-1.4) mg/dl Est Cr Clr Drug Dosing ml/min Est GFR ( Amer) ml/min Est GFR (Non-Af Amer) ml/min BUN/Creatinine Ratio (10-20) Glucose (70-99(Fasting)) mg/dl Calcium (8.5-10.1) mg/dl Iron (35-175) mcg/dl Transferrin (200-360) mg/dl Ferritin (8-388) ng/ml Vitamin B12 (180-914) pg/ml Folate SARS-CoV-2, RNA, NAAT (NEGATIVE) Blood Type A Positive Antibody Screen NEGATIVE Crossmatch See Detail 04/17/22 04/17/22 04/17/22 Range/Units 13:17 13:21 13:21 WBC (4.8-10.8) K/ul RBC (4.63-6.08) M/uL Hgb (14.0-18.0) g/dl Hct (40.1-51.0) % MCV (80.0-100.0) fL MCH (25.0-34.0) pg MCHC (32.0-36.0) g/dL RDW Std Deviation (36.4-46.3) fL RDW Coeff of Shasha (11.5-14.5) % Plt Count (130-400) K/uL MPV (9.4-12.4) fL Immature Gran % (Auto) % Neut % (Auto) % Lymph % (Auto) % [place] % (Auto) % Eos % (Auto) % Baso % (Auto) % Neut # (Auto) (1.4-6.5) K/uL Lymph # (Auto) (1.2-3.4) K/uL [place] # (Auto) (0.24-0.82) K/uL Eos # (Auto) (0-0.50) K/uL Baso # (Auto) (0-0.2) K/uL Immature Gran # (Auto) (0.00-0.02) K/uL Polychromasia PT (9.0-12.0) Seconds INR (0.9-1.1) APTT (21.0-31.0) Seconds PTT Ratio Sodium 139 (136-145) mmol/L Potassium 4.0 (3.5-5.1) mmol/L Chloride 107 (98-107) mmol/L Carbon Dioxide 24 (21-32) mmol/L Anion Gap 8 (3-11) BUN 24 H (6-23) mg/dl Creatinine 1.25 (0.6-1.4) mg/dl Est Cr Clr Drug Dosing 49.5 ml/min Est GFR ( Amer) 64.0 ml/min Est GFR (Non-Af Amer) 55.2 ml/min BUN/Creatinine Ratio 19.2 (10-20) Glucose 97 (70-99(Fasting)) mg/dl Calcium 9.0 (8.5-10.1) mg/dl Iron 46 (35-175) mcg/dl Transferrin 321 (200-360) mg/dl Ferritin 7.6 L (8-388) ng/ml Vitamin B12 (180-914) pg/ml Folate Cancelled SARS-CoV-2, RNA, NAAT (NEGATIVE) Blood Type Antibody Screen Crossmatch 04/17/22 04/17/22 Range/Units 13:21 13:45 WBC (4.8-10.8) K/ul RBC (4.63-6.08) M/uL Hgb (14.0-18.0) g/dl Hct (40.1-51.0) % MCV (80.0-100.0) fL MCH (25.0-34.0) pg MCHC (32.0-36.0) g/dL RDW Std Deviation (36.4-46.3) fL RDW Coeff of Shasha (11.5-14.5) % Plt Count (130-400) K/uL MPV (9.4-12.4) fL Immature Gran % (Auto) % Neut % (Auto) % Lymph % (Auto) % [place] % (Auto) % Eos % (Auto) % Baso % (Auto) % Neut # (Auto) (1.4-6.5) K/uL Lymph # (Auto) (1.2-3.4) K/uL [place] # (Auto) (0.24-0.82) K/uL Eos # (Auto) (0-0.50) K/uL Baso # (Auto) (0-0.2) K/uL Immature Gran # (Auto) (0.00-0.02) K/uL Polychromasia PT (9.0-12.0) Seconds INR (0.9-1.1) APTT (21.0-31.0) Seconds PTT Ratio Sodium (136-145) mmol/L Potassium (3.5-5.1) mmol/L Chloride (98-107) mmol/L Carbon Dioxide (21-32) mmol/L Anion Gap (3-11) BUN (6-23) mg/dl Creatinine (0.6-1.4) mg/dl Est Cr Clr Drug Dosing ml/min Est GFR ( Amer) ml/min Est GFR (Non-Af Amer) ml/min BUN/Creatinine Ratio (10-20) Glucose (70-99(Fasting)) mg/dl Calcium (8.5-10.1) mg/dl Iron (35-175) mcg/dl Transferrin (200-360) mg/dl Ferritin (8-388) ng/ml Vitamin B12 314 (180-914) pg/ml Folate 22.01 SARS-CoV-2, RNA, NAAT NEGATIVE (NEGATIVE) Blood Type Antibody Screen Crossmatch ECG Data Indication: + weakness Rate (beats per minute): 80 Rhythm: + normal sinus ECG Intervals/blocks: + First degree AV block, + Right Bundle branch block and + Normal QT-c ECG ST segments: + Normal ST segments ECG Findings: + PVCs Additional Comments: WI 288 QRS 138 QTC 440 MDM Narrative Vital signs stable. Labs show hemoglobin 7.9. INR is 4.5. Vitamin K IV ordered for the patient. Patient will be admitted to the [facility] team. Impression & Plan GIB (gastrointestinal bleeding) Discharge Plan Visit Data Chief Complaint: Referred by Doctor Stated Complaint: internal bleeding, Dr ref ED Provider: Ike Tarango Discharge Problem: GIB (gastrointestinal bleeding) Patient Disposition: Admitted As Inpatient Discharge Instructions Interventions: ED Discharge Assessment Last Done: 04/17/22 18:16
[2022-04-17] MEDS ORDERED: HYDROCODONE/ACETAMOPHEN 5/325MG TAB PO PRN (19:12)
[2022-04-17] MEDS ORDERED: PHARMACY GLYCEMIC MGMT CONSULT PRN (19:12)
[2022-04-17] MEDS ORDERED: GLUCAGON FOR INJ 1 MG VIAL SQ PRN (19:12)
[2022-04-17] MEDS ORDERED: GLUCOSE 10 TAB/TUBE PO PRN (19:12)
[2022-04-17] MEDS ORDERED: DEXTROSE 50% 50 ML SYRINGE IV PRN (19:12)
[2022-04-17] MEDS ORDERED: ACETAMINOPHEN 325 MG TAB PO PRN (19:12)
[2022-04-17] MEDS ORDERED: GLUCOSE 40% GEL 15 GM TUBE PO PRN (19:12)
[2022-04-17] MEDS ORDERED: CARBOHYDRATES FOR HYPOGLYCEMIA PO PRN (19:12)
[2022-04-17] MEDS ORDERED: ONDANSETRON INJ 2 MG/ML 2 ML VIAL IV PRN (19:12)
[2022-04-17] MEDS: carvediloL 6.25 MG TAB PO SCH (20:20)
[2022-04-17] MEDS: hydrALAZINE HCL 25 MG TAB PO SCH (20:20)
[2022-04-17] MEDS: TAMSULOSIN HCL 0.4 MG CAP PO SCH (20:20)
[2022-04-17] MEDS: DIGOXIN 0.25 MG TAB PO SCH (20:21)
[2022-04-17] MEDS: lisinopril 2.5 MG TAB PO SCH (20:22)
[2022-04-17 23:06] LABS: Hematocrit (blood only) 28.2 % (40.1-51.0); Hemoglobin 8.9 g/dl (14.0-18.0)
[2022-04-17 23:19] LABS: INR 1.9 (0.9-1.1); Prothrombin Time 19.3 Seconds (9.0-12.0)
[2022-04-18] MEDS: INSULIN ASPART PER UNIT SC SCH ×5 (00:15→20:40)
[2022-04-18] MEDS: PANTOprazole 40 MG in DEXTROSE 5% 100 ML IV SCH ×5 (04:35→21:50)
[2022-04-18 06:10] LABS: Basophils # (auto) 0.04 K/uL (0-0.2); Basophils % (auto) 0.4 %; Eosinophils # (auto) 0.44 K/uL (0-0.50); Eosinophils % (auto) 4.3 %; Hematocrit (blood only) 29.1 % (40.1-51.0); Hemoglobin 9.2 g/dl (14.0-18.0); Immature Granulocytes # (auto) 0.04 K/uL (0.00-0.02); Immature Granulocytes % (auto) 0.4 %; Lymphocytes # (auto) 1.86 K/uL (1.2-3.4); Mean Corpuscular Hemoglobin 29.2 pg (25.0-34.0); Mean Corpuscular Hgb Conc 31.6 g/dL (32.0-36.0); Mean Corpuscular Volume 92.4 fL (80.0-100.0); Mean Platelet Volume 10.6 fL (9.4-12.4); Monocytes # (auto) 1.43 K/uL (0.24-0.82); Monocytes % (auto) 13.9 %; Neutrophils # (auto) 6.51 K/uL (1.4-6.5); Platelet Count 281 K/uL (130-400); RDW Coefficient of Variation 14.3 % (11.5-14.5); RDW Standard Deviation 47.8 fL (36.4-46.3); Red Blood Count 3.15 M/uL (4.63-6.08); White Blood Count 10.32 K/ul (4.8-10.8)
[2022-04-18 06:26] LABS: INR 1.4 (0.9-1.1); Prothrombin Time 14.6 Seconds (9.0-12.0)
[2022-04-18 06:42] LABS: Albumin Globulin Ratio 1.2 (0.9-2); Albumin Level 3.7 gm/dl (3.4-5.0); BUN Creatinine Ratio 15.2 (10-20); Bilirubin,Total 0.8 mg/dl (0.2-1.0); Calcium 8.5 mg/dl (8.5-10.1); Creatinine Clr Calc Pharmacy 49.5 ml/min; Est GFR (Non-African American) 55.2 ml/min; Magnesium 2.2 mg/dl (1.7-2.4); Potassium 3.7 mmol/L (3.5-5.1); Total Protein 6.7 gm/dl (6.0-8.3)
[2022-04-18] MEDS: carvediloL 6.25 MG TAB PO SCH ×2 (08:38→20:02)
[2022-04-18] MEDS: hydrALAZINE HCL 25 MG TAB PO SCH ×2 (08:38→20:03)
[2022-04-18] MEDS: CETIRIZINE HCL 10 MG TABLET PO SCH (08:39)
[2022-04-18] MEDS: ISOSORBIDE MONO EXTENDED REL 60 MG TABCR PO SCH (08:39)
[2022-04-18] MEDS: ROSUVASTATIN CALCIUM 20 MG TAB PO SCH (08:39)
[2022-04-18] MEDS: FERROUS SULFATE 325 MG TAB PO SCH (08:39)
[2022-04-18] MEDS: IRON SUCROSE 400 MG in SODIUM CHLORIDE 0.9% 250 ML IV SCH (08:43)
--- NOTE | 2022-04-18 08:49 | Pharmacy Report ---
Pharmacy Glycemic Short Note 2 - Date of Service April 18, 2022 - Glycemic Short BSG Results (Last 24 hours): 04/17/22 04/17/22 04/17/22 13:17 16:46 17:03 Glucose 97 POC Glucose 79 98 04/17/22 04/18/22 04/18/22 19:37 00:09 05:25 Glucose 117 H POC Glucose 102 H 101 H 04/18/22 06:07 Glucose POC Glucose 124 H OUTPATIENT ANTIDIABETIC REGIMEN: * empagliflozin 25mg daily * Novolog 10units qAM, 32 units w/ lunch, 26 units w/ dinner, and 8units HS * Lantus 60 units qAM * metformin 1gm BID HbA1C: ____ ASSESSMENT: * Patient is a type 2 diabetic presenting with acute GI bleed. Pharmacy consulted to assist with inpatient glycemic control. * Pt NPO overnight for possible EGD today. Protonix (in D5W) running @ 20mL/hr. BSGs since arrival: 56-956-148-124mg/dL. Patient took his home dose of 60 units of Lantus yesterday before arrival. * Plan for transition to basal/bolus insulin while inpatient. Novolog scale initiated q6h while NPO based upon outpatient total insulin dose. Transitioned to ACHS at lunch today given a diet was ordered. * Lantus 10 units this AM while NPO, plus additional 30 units at lunch given no planned EGD and patient ordered a diet/eating lunch. Will reassess basal insulin in AM. PLAN FOR INPATIENT GLYCEMIC CONTROL: * Hold outpatient oral diabetes medications * Basal insulin * Lantus 40 units * Bolus insulin * NovoLog per scale ACHS or Q6hrs while NPO * Goal Range: Low 110 mg/dL - High 140 mg/dL * Correction Factor: 15 mg/dL/unit * Nutritional / Prandial insulin per carb ratio of 1 unit per 5 grams CHO consumed
[2022-04-18] MEDS ORDERED: LANTUS PER UNIT CHARGE SQ SCH (09:00)
[2022-04-18] MEDS ORDERED: LANTUS PER UNIT CHARGE SQ ONE ×2 (09:00→12:00)
[2022-04-18] MEDS: ASPIRIN 81 MG ECTAB PO SCH (11:47)
--- NOTE | 2022-04-18 11:51 | Gastrointestinal Consultation ---
Date of Consultation April 18, 2022 Assessment & Plan (1) Paroxysmal A-fib: (2) Supratherapeutic INR: (3) Anemia: Normocytic but iron deficient anemia (low ferritin) w/o gross GI bleeding. Will plan for OP EGD/Colonoscopy. Pt is happy with this plan. Our office will contact him to arrange. It will likely be in approx one month. Supervising Physician Co-Signing Physician Notes I saw and evaluated the patient. We were consulted for new onset anemia. Of note the patient has had prior upper endoscopies and colonoscopies in the recent past. Of note he has no dark sticky stool, hematemesis or bright red blood per rectum. Physical examination No obvious distress No scleral icterus Impression: Patient admitted with a new onset anemia in the setting of anticoagulation. We could certainly provide further evaluation with upper endoscopy and colonoscopy as an outpatient. I would also suggest evaluation to screen for evidence of hematuria as this could be another cause of his symptoms. The patient can be discharged from our perspective and should be started on an iron supplement. Endoscopic evaluation to be arranged with his regular GI provider over the next few weeks History of Present Illness Reason for Consultation: "GI Bleed" Requesting Physician: Nadja Diaz PA-C Attending Physician: Marybel Pham MD History of Present Illness Mr. Bradley is a 76 yr old [facility] a hx of CAD post MIs, A-fib on warfarin, ischemic CM s/p ICD, DM-2 and other as below. He was sent to ED yesterday for OP labs showing anemia. He reports feeling SOB w exertion and a little dizzy intermittently for a few weeks. He denies any gross GI bleeding. No abdominal pain, no nausea, no vomiting. No NSAID use. On arrival, Hb 7.9, down form 14 in September. INR was supratherapeutic at 4.5, reversed w Vit K to 1.4 today. He received one unit of RBCs and an iron transfusion. Today's Hb post transfusion is 9.2. BUN has been normal. He has been hemodynamically stable. Most recent EGD in Jun 2021 was normal. Most recent colonoscopy in March 2020 w three 6mm polyps. Allergies Allergy/AdvReac Type Severity Reaction Status Date / Time house dust mite Allergy Severe facial Verified 06/25/21 12:45 swelling venom-honey bee Allergy Severe Anaphylaxis Verified 06/25/21 12:45 pioglitazone Allergy Intermediate severe Verified 06/25/21 12:45 headaches Home Medications Medication Instructions Recorded Confirmed Type carvedilol 12.5 mg tablet 6.25 mg PO BID 11/25/18 04/17/22 History digoxin 250 mcg (0.25 mg) tablet 250 mcg PO HS 11/25/18 04/17/22 History epinephrine 0.3 mg/0.3 mL 0.3 mg IM UD PRN Anaphylaxis 11/25/18 04/17/22 History injection, auto-injector hydralazine 25 mg tablet 25 mg PO BID 11/25/18 04/17/22 History insulin aspart U-100 100 unit/mL See Rx Instructions .Route .COMPLEX 11/26/18 04/17/22 History subcutaneous solution (Novolog U-100 Insulin aspart) insulin glargine 100 unit/mL 60 unit subcut QAM 11/26/18 04/17/22 History subcutaneous solution (Lantus U-100 Insulin) isosorbide mononitrate 60 mg 60 mg PO QAM 11/26/18 04/17/22 History tablet,extended release 24 hr lisinopril 2.5 mg tablet 2.5 mg PO HS 11/26/18 04/17/22 History metformin 1,000 mg tablet 1,000 mg PO BID 11/26/18 04/17/22 History nitroglycerin 0.4 mg sublingual 0.4 mg sublingual UD PRN Chest Pain 11/26/18 04/17/22 History tablet (Nitrostat) warfarin 5 mg tablet 5 mg PO DAILY 11/26/18 04/17/22 History cetirizine 10 mg tablet (Zyrtec) 10 mg PO QAM 02/29/20 04/17/22 History empagliflozin 25 mg tablet 25 mg PO QAM 02/29/20 04/17/22 History ferrous sulfate 325 mg (65 mg 325 mg PO 3XWK 02/29/20 04/17/22 History iron) tablet (Iron (ferrous sulfate)) tamsulosin 0.4 mg capsule 0.4 mg PO HS 02/29/20 04/17/22 History aspirin 81 mg tablet,delayed 81 mg PO QAM 09/20/20 04/17/22 History release hydrocodone 5 mg-acetaminophen 325 1 tab PO BID PRN Pain 04/17/22 04/17/22 History mg tablet rosuvastatin 40 mg tablet 40 mg PO DAILY 04/17/22 04/17/22 History Patient History Medical History Anemia BPH (benign prostatic hyperplasia) CAD (coronary artery disease) s/p PCI of Cx 2010; chronic LAD occlusion with recannulation Diabetes mellitus, type 2 Emphysema of lung Heart attack --follows with Dr. Maldonado Hyperlipidemia Hypertension ICD (implantable cardioverter-defibrillator) in place originially placed 2010--medtronic @ [facility] [place]. replacement with dual chamber @ [facility] 04/17/2020 Ischemic cardiomyopathy with implantable cardioverter-defibrillator (ICD) s/p ICD generator change with upgrade to dual chamber Left ventricular apical thrombus On Coumadin On anticoagulant therapy warfarin daily Paroxysmal A-fib On digoxin, warfarin, coreg Surgical History History of cardiac cath x2--- x1 stent @ [facility] [place] History of colonoscopy with polypectomy last 03/08/20 History of esophagogastroduodenoscopy (EGD) last 03/08/20 History of heart artery stent (1) 2010 @ [facility] [place] History of tonsillectomy and adenoidectomy History of tooth extraction all teeth Family History Other Cancer Heart disease No family history of adverse response to anesthesia No family history of bleeding disorder No pertinent family history Social History Smoking Status: Former smoker Second Hand Exposure: No; Do You Dip or Chew Tobacco: No; Tobacco Cessation Education Requested by Patient: No Hx Alcohol Use: No Hx Substance Use: No Preferred Language: Danish Communication Ability: Effective Business Control Specialist Required: No Beliefs That Will Affect Care: None marital status: Current Living Situation: Spouse Other Information That Helps Us Care for You: No Feels Safe at Home: Yes Safety Concerns: Feels Safe At This Time Assistive Devices: None Review of Systems Review of Systems: ROS: Gen: + weakness, dizziness, fatigue; denies any weight loss Eyes: No eye redness, or pain, no recent vision changes Resp: No SOB, no cough Cardio: No palpitations/irregular beats, no chest pain GI: No abd pain, no red or black BMs, no nausea/vomiting. : Denies pain on urination Skin: No jaundice, itching or new rashes Physical Exam Constitutional: WD/WN, vitals as above Eyes: PERRL, conjunctivae normal, anicteric sclerae ENMT: external ear and nose normal, oropharynx normal Neck: trachea midline, no thyromegaly Respiratory: normal respiratory effort, lungs clear to auscultation Cardiovascular: RRR, no murmur, no edema Gastrointestinal (Abdomen): normal bowel sounds, soft, nontender, no hepatosplenomegaly Skin: no rashes, warm and dry Neurologic: PERRL, EOMI, accommodation nl, no face palsy, no dysarthria Psychiatric: A+Ox3, euthymic affect Results & Data ([facility]) Vital Signs (Past 12 Hours) Vital Signs Temp Pulse Pulse Resp BP BP Pulse Ox 04/18/22 11:00 36.7 C 71 18 130/66 95 04/18/22 08:00 68 04/18/22 07:00 37.1 C 70 18 133/73 98 04/18/22 04:02 36.5 C 73 18 153/72 H 98 04/18/22 00:11 36.8 C 74 18 128/70 97 O2 Del Method 04/18/22 11:00 Room Air 04/18/22 08:00 04/18/22 07:00 Room Air 04/18/22 04:02 Room Air 04/18/22 00:11 Room Air Laboratory Results Hb 10, Hct 9.2, Hct 29, plts 281, PT 14, INR 1.4, Na 139, K 3.7, Cl 107, CO2 25, BUN 19, Cr 1.25, gluose 117.
[2022-04-18 15:15] LABS: Hematocrit (blood only) 28.8 % (40.1-51.0); Hemoglobin 9.1 g/dl (14.0-18.0)
--- NOTE | 2022-04-18 15:26 | Hospitalist Progress Note ---
Date of Service April 18, 2022 Assessment & Plan (1) Anemia: (2) Heme positive stool: (3) Supratherapeutic INR: (4) Acute renal insufficiency: (5) Ischemic cardiomyopathy with implantable cardioverter-defibrillator (ICD): (6) Paroxysmal A-fib: (7) Diabetes: (8) Hypertension: Plan 76-year-old male who has a significant past medical history of insulin-dependent T2DM, ischemic cardiomyopathy with defibrillator in place, SSS status post PPM, history of left ventricular apical thrombus, PAF anticoagulated on warfarin, CAD, HTN, HLD presented 04/17 to our ED [facility]. Anemia Heme positive stool Supratherapeutic INR Possible UGIB Iron deficency Anemia Admitting hemoglobin of 7.9, dizziness with activity, 06/25 EGD normal, 03/2020 colonoscopy polyps with polypectomy. FOBT in ED positive. Status post 1 unit PRBC 04/17. Iron profile: Ferritin 7.6 with iron 46, vitamin B12 low normal. Getting IV iron. We will add vitamin B12 supplementation. On PPI drip, transition to p.o. tomorrow. Coumadin was held, GI evaluated, cleared for diet, ok to resume Coumadin today, closely monitor PT/INR daily. Plan for outpatient EGD/colonoscopy per GI. Patient will need close follow-up with Coumadin clinic upon discharge. INR 1.4 today. Hemoglobin stable around 9. Continue to monitor H&H daily and as needed. #. Mild elevation in BUN and creatinine from baseline at presentation, does not qualify for LEVI. Likely secondary to anemia. Monitor BMP. Ischemic Cardiomyopathy with ICD In place hx of SSS s/p ppm CAD HTN HLD Continue aspirin, Coreg, hydralazine, Imdur, lisinopril and rosuvastatin Daily weights, strict I's and O's Currently euvolemic Monitor volume status with transfusion Last echocardiogram 12/2020 revealed EF 30 to 35%, AV sclerosis, mild TR Insulin-dependent T2DM Last A1c 7.1 on 04/15/2022 Lantus/NovoLog per protocol Hold metformin and Jardiance Consult with pharmacy, appreciate their input PAF Supratherapeutic INR Continue digoxin and carvedilol Warfarin resumed, INR daily, OP coumadin clinic for necessary monitoring and dose adjustment. Currently regular rate and rhythm DVT prophylaxis: Coumadin Full code PCP: Dr. Miller PT/OT. CM to assist w/ dc plan. Nate dc in next few days pending Hb stable on therapeutic INR. Admission and Anticipated Discharge Date Admission Date: April 17, 2022 Subjective Patient seen and examined at bedside as a follow-up of supratherapeutic INR, likely upper GI bleed and iron deficiency anemia. Patient was lying in bed, on room air, NAD, no new acute events overnight. Patient denies any fever/chills/headache/chest pain/palpitations/belly pain/other review of symptoms. Patient reports moving bowels okay. Physical Exam Physical Exam: GENERAL: Alert and oriented x3. NAD, on RA. HEENT: No pallor, no icterus. Pupils equal, round and reactive to light. Oral mucosa moist. NECK: No JVD, no neck masses. HEART: S1 and S2 heard. Regular rate and rhythm. No murmur, no gallop. RESPIRATORY SYSTEM: Normal AP diameter. No accessory muscle use. No wheezing, no crackles. ABDOMEN: Soft, bowel sounds present, nontender, no distention. CENTRAL NERVOUS SYSTEM: No facial droop. Speech is clear. Obeys simple commands. Moves extremities. EXTREMITIES: No edema, no erythema seen. Results & Data Results & Data ([facility]) Vital Signs (Past 12 Hours) Vital Signs Temp Pulse Pulse Resp BP Pulse Ox O2 Del Method 04/18/22 15:18 36.6 C 68 17 127/60 96 Room Air 04/18/22 11:00 36.7 C 71 18 130/66 95 Room Air 04/18/22 08:00 68 04/18/22 07:00 37.1 C 70 18 133/73 98 Room Air 04/18/22 04:02 36.5 C 73 18 153/72 H 98 Room Air
[2022-04-18] MEDS ORDERED: WARFARIN SOD 5 MG TAB PO SCH (16:00)
[2022-04-18] MEDS: CYANOCOBALAMIN (B-12) 100 MCG TABLET PO SCH (17:05)
[2022-04-18] MEDS: DIGOXIN 0.25 MG TAB PO SCH (20:02)
[2022-04-18] MEDS: lisinopril 2.5 MG TAB PO SCH (20:03)
[2022-04-18] MEDS: TAMSULOSIN HCL 0.4 MG CAP PO SCH (20:03)
[2022-04-19] MEDS: PANTOprazole 40 MG in DEXTROSE 5% 100 ML IV SCH ×2 (02:55→10:01)
[2022-04-19 06:12] LABS: Hematocrit (blood only) 30.4 % (40.1-51.0); Hemoglobin 9.5 g/dl (14.0-18.0); Mean Corpuscular Hemoglobin 28.7 pg (25.0-34.0); Mean Corpuscular Hgb Conc 31.3 g/dL (32.0-36.0); Mean Corpuscular Volume 91.8 fL (80.0-100.0); Mean Platelet Volume 10.5 fL (9.4-12.4); Nucleated RBC # (auto) 0.03 K/uL (0-0); Nucleated RBC % (auto) 0.3 %; Platelet Count 296 K/uL (130-400); RDW Coefficient of Variation 14.3 % (11.5-14.5); RDW Standard Deviation 47.9 fL (36.4-46.3); Red Blood Count 3.31 M/uL (4.63-6.08); White Blood Count 11.29 K/ul (4.8-10.8)
[2022-04-19 06:25] LABS: INR 1.1 (0.9-1.1); Prothrombin Time 12.1 Seconds (9.0-12.0)
[2022-04-19 06:34] LABS: BUN Creatinine Ratio 13.7 (10-20); Calcium 8.5 mg/dl (8.5-10.1); Creatinine Clr Calc Pharmacy 47.2 ml/min; Est GFR (African American) 60.4 ml/min; Est GFR (Non-African American) 52.1 ml/min; Potassium 3.7 mmol/L (3.5-5.1)
[2022-04-19 07:48] LABS: Estimated Average Glucose 163 mg/dl; Hemoglobin A1C 7.3 % (4.5-5.6)
[2022-04-19] MEDS ORDERED: LANTUS PER UNIT CHARGE SQ SCH ×2 (09:00)
[2022-04-19] MEDS: IRON SUCROSE 400 MG in SODIUM CHLORIDE 0.9% 250 ML IV SCH (09:20)
[2022-04-19] MEDS: hydrALAZINE HCL 25 MG TAB PO SCH (09:20)
[2022-04-19] MEDS: ASPIRIN 81 MG ECTAB PO SCH (09:21)
[2022-04-19] MEDS: ISOSORBIDE MONO EXTENDED REL 60 MG TABCR PO SCH (09:21)
[2022-04-19] MEDS: FERROUS SULFATE 325 MG TAB PO SCH (09:21)
[2022-04-19] MEDS: ROSUVASTATIN CALCIUM 20 MG TAB PO SCH (09:21)
[2022-04-19] MEDS: carvediloL 6.25 MG TAB PO SCH (09:21)
[2022-04-19] MEDS: CETIRIZINE HCL 10 MG TABLET PO SCH (09:21)
[2022-04-19] MEDS: CYANOCOBALAMIN (B-12) 100 MCG TABLET PO SCH (09:21)
[2022-04-19] MEDS: INSULIN ASPART PER UNIT SC SCH ×2 (10:00→12:52)
--- NOTE | 2022-04-19 12:22 | Discharge Summary ---
Date of Service April 19, 2022 Admission HPI Per Admitting Provider This is a 76-year-old male who has a significant past medical history of insulin-dependent T2DM, ischemic cardiomyopathy with defibrillator in place, SSS status post PPM, history of left ventricular apical thrombus, PAF anticoagulated on warfarin, CAD, HTN, HLD who presents to ED secondary to referral from [place] due to low hemoglobin. Over the last 2 months patient has reported increase in generalized weakness, easy fatigability and lightheadedness/dizziness. Over the past 2 weeks he felt as if he could pass out especially with quick movements. He denies any nikita syncope. He denies any recent illness, fever, chills, sweats, chest pain, shortness of breath, HARKINS, palpitations, nausea, vomiting, abdominal pain, postprandial pain, hematuria, dysuria, increased urgency or frequency with urination or epistaxis. He has been moving his bowels but does not look at them and is unsure if he has any blood in his stool or dark tarry stool. He denies any prior history of GI bleeding. He did have an EGD for review and outpatient records in June 2021 which was relatively unremarkable. He is on long-term anticoagulation secondary to A. fib. He has been taking Coumadin for, "many years." He denies any prior history of transfusion. He did follow with hematology in the past secondary to low hemoglobin and was told to take iron. In ED patient remained hemodynamically stable. His hemoglobin and hematocrit was 7.9 and 25.1 respectively. His INR was supratherapeutic at 4.5. His BUN and creatinine was mildly elevated at 24 and 1.25. He was started on Protonix bolus and drip. He was Hemoccult positive in ED. He also received 40 mg IV vitamin K. Admission Exam Per Admitting Provider Constitutional: WD/WN, Pallor, vitals as above, NAD, sitting up in bed, pleasant, conversing easily Head: Normocephalic, Atraumatic Eyes: PERRL, conjunctivae normal, anicteric sclerae ENMT: external ear and nose normal, oropharynx normal Neck: trachea midline, no thyromegaly normal visual inspection Respiratory: normal respiratory effort, lungs clear to auscultation, no wheeze, rales, rhonchi. Normal insp/exp effort, no accessory muscle use Cardiovascular: RRR, no murmur, no edema Vessels: no JVD or carotid bruit Chest: normal inspection of chest Abdomen: normal bowel sounds, soft, nontender, no hepatosplenomegaly Musculoskeletal: no cyanosis or clubbing, extremities motor strength 5/5 Skin: no rashes, warm and dry normal turgor Neurologic: PERRL, EOMI, accommodation nl, no face palsy, no dysarthria CN's II-XI intact bilaterally and moves all extremities Psychiatric: A+Ox3, euthymic affect Lymphatic: no cervical or axillary lymphadenopathy : deferred Principal Diagnosis Likely UGI bleed Iron deficiency anemia, symptomatic Discharge Exam GENERAL: Alert and oriented x3. NAD, on RA. HEENT: No pallor, no icterus. Pupils equal, round and reactive to light. Oral mucosa moist. NECK: No JVD, no neck masses. HEART: S1 and S2 heard. Regular rate and rhythm. No murmur, no gallop. RESPIRATORY SYSTEM: Normal AP diameter. No accessory muscle use. No wheezing, no crackles. ABDOMEN: Soft, bowel sounds present, nontender, no distention. CENTRAL NERVOUS SYSTEM: No facial droop. Speech is clear. Obeys simple commands. Moves extremities. EXTREMITIES: No edema, no erythema seen. Discharge Data Allergies Allergy/AdvReac Type Severity Reaction Status Date / Time house dust mite Allergy Severe facial Verified 06/25/21 12:45 swelling venom-honey bee Allergy Severe Anaphylaxis Verified 06/25/21 12:45 pioglitazone Allergy Intermediate severe Verified 06/25/21 12:45 headaches Consultations 04/17/22 14:04 ED Decision to Admit Stat 04/17/22 14:45 Consult Gastroenterology Routine Hospital Course (1) Anemia: (2) Heme positive stool: (3) Supratherapeutic INR: (4) Acute renal insufficiency: (5) Ischemic cardiomyopathy with implantable cardioverter-defibrillator (ICD): (6) Paroxysmal A-fib: (7) Diabetes: (8) Hypertension: Plan 76-year-old male who has a significant past medical history of insulin-dependent T2DM, ischemic cardiomyopathy with defibrillator in place, SSS status post PPM, history of left ventricular apical thrombus, PAF anticoagulated on warfarin, CAD, HTN, HLD presented 04/17 to our ED secondary to referral [place] due to low hemoglobin. He was managed for the following: Anemia Heme positive stool Supratherapeutic INR Possible UGIB Iron deficency Anemia Admitting hemoglobin of 7.9, dizziness with activity, 06/25 EGD normal, 03/2020 colonoscopy polyps with polypectomy. FOBT in ED positive. Status post 1 unit PRBC 04/17. Iron profile: Ferritin 7.6 with iron 46, vitamin B12 low normal. s/p IV iron. c/w vitamin B12 supplementation. On PPI drip, transition to p.o. upon DC. Coumadin resumed 04/18, patient to follow-up with his Coumadin clinic closely for necessary evaluation/dose adjustment GI evaluated, plan for outpatient EGD/colonoscopy. Patient to get blood work CBC in a week time upon discharge and have the results forwarded to his primary care physician. Dizziness improved. Patient hemodynamically stable and would like to go home. #. Mild elevation in BUN and creatinine from baseline at presentation, does not qualify for LEVI. Likely secondary to anemia. Monitor BMP. Ischemic Cardiomyopathy with ICD In place hx of SSS s/p ppm CAD HTN HLD Continue aspirin, Coreg, hydralazine, Imdur, lisinopril and rosuvastatin Daily weights, strict I's and O's Currently euvolemic Monitor volume status with transfusion Last echocardiogram 12/2020 revealed EF 30 to 35%, AV sclerosis, mild TR Insulin-dependent T2DM Last A1c 7.1 on 04/15/2022 Lantus/NovoLog per protocol Hold metformin and Jardiance Consult with pharmacy, appreciate their input PAF Supratherapeutic INR Continue digoxin and carvedilol Warfarin resumed 04/18, INR daily, OP coumadin clinic for necessary monitoring and dose adjustment. Currently regular rate and rhythm DVT prophylaxis: Coumadin Full code PCP: Dr. Miller Patient did very well with OT, he is being discharged to home with family support with following instruction at the point of discharge: Follow-up with your primary care physician within a week time. Get your blood work CBC in 5 to 7 days upon discharge and have the results forwarded to your primary care physician. Get your blood work PT/INR done in 3 to 5 days upon discharge, follow-up with your Coumadin clinic closely for close management of your Coumadin dose. Follow-up with your GI doctor as an outpatient for outpatient evaluation with EGD scope/colonoscopy. You are being discharged on oral iron therapy, take it with large meal of the day. You are being discharged on Protonix twice a day, you will need further evaluation with a GI doctor as an outpatient. Take your medications as prescribed. Total Time Total Time Spent Total Time Spent (In Minutes): 35 Discharge Plan Discharge Items Patient Disposition: Home - Self-Care Reason For Visit: GIB Discharge Diagnosis: Likely UGI bleed Iron deficiency anemia, symptomatic Activity: Resume your previous activity Non-emergency contact: Primary Care Provider Call non-emergency contact if: you have any medication questions, your symptoms worsen and your temperature is above 101 Follow-up/Referrals: Shreyas Miller MD [Primary Care Provider] - Diet: Carb Consistent or DM2 Addtl Attending Provider Instructions: Follow-up with your primary care physician within a week time. Get your blood work CBC in 5 to 7 days upon discharge and have the results forwarded to your primary care physician. Get your blood work PT/INR done in 3 to 5 days upon discharge, follow-up with your Coumadin clinic closely for close management of your Coumadin dose. Follow-up with your GI doctor as an outpatient for outpatient evaluation with EGD scope/colonoscopy. You are being discharged on oral iron therapy, take it with large meal of the day. You are being discharged on Protonix twice a day, you will need further evaluation with a GI doctor as an outpatient. Take your medications as prescribed. Pending Studies at Discharge: No Stand-Alone Forms: [employer], Smoking Cessation Medications and DC Order Prescriptions: New cyanocobalamin (vitamin B-12) [Vitamin B-12] 100 mcg Tablet 100 mcg PO QAM 30 Days Qty: 30 0RF pantoprazole 40 mg tablet,delayed release (DR/EC) 40 mg PO BID Qty: 60 0RF Continued carvedilol 12.5 mg Tablet 6.25 mg PO BID digoxin 250 mcg Tablet 250 mcg PO HS epinephrine 0.3 mg/0.3 mL Auto-Injector 0.3 mg IM UD PRN (Reason: Anaphylaxis) Rx Instructions: BEE [employer]INGS hydralazine 25 mg Tablet 25 mg PO BID insulin aspart U-100 [Novolog U-100 Insulin aspart] 100 unit/mL Solution See Rx Instructions .ROUTE .COMPLEX Rx Instructions: Take 10 units in the morning, 32 units with lunch, 26 units with dinner and 8 units at bedtime. insulin glargine [Lantus U-100 Insulin] 100 unit/mL Solution 60 unit SUBCUT QAM isosorbide mononitrate 60 mg Tablet Extended Release 24 Hr 60 mg PO QAM lisinopril 2.5 mg Tablet 2.5 mg PO HS metformin 1,000 mg Tablet 1,000 mg PO BID nitroglycerin [Nitrostat] 0.4 mg Tablet, Sublingual 0.4 mg Sublingual UD PRN (Reason: Chest Pain) Rx Instructions: NEEDED FOR CHEST PAIN: ONE TABLET UNDER THE TONGUE EVERY 5 MINUTES UP TO 3 DOSES. warfarin 5 mg Tablet 5 mg PO DAILY cetirizine [Zyrtec] 10 mg Tablet 10 mg PO QAM tamsulosin 0.4 mg Capsule 0.4 mg PO HS empagliflozin 25 mg Tablet 25 mg PO QAM aspirin 81 mg Tablet,Delayed Release (Dr/Ec) 81 mg PO QAM hydrocodone-acetaminophen [Hope] 5-325 mg Tablet 1 tab PO BID PRN (Reason: Pain) rosuvastatin 40 mg Tablet 40 mg PO DAILY Changed ferrous sulfate [Iron (ferrous sulfate)] 325 mg (65 mg iron) Tablet 325 mg PO DAILY Qty: 30 0RF Rx Instructions: Thursday, and Thursday in the morning Discharge Orders: Discharge Order (Routine); Ordered 04/19/22 Ordered By: Marybel Pham Admission Data Admit Date/Time: 04/17/22 14:45 Attending Provider: Marybel Pham Admit Provider: Rubin Salcedo Primary Care Provider: Shreyas Miller Other Providers: Rubin Salcedo ; Daksha Harrison
== END 2022-04-19 13:47 | disposition home or self-care (01) | DRG 379 ==
LOC: ED 12:46 → 2E 14:45 → SUATTDRO 14:45 → 2E 18:16
DX: I25.5 Ischemic cardiomyopathy; I48.0 Paroxysmal atrial fibrillation; Z95.810 Presence of automatic (implantable) cardiac defibrillator; Z87.891 Personal history of nicotine dependence; R79.1 Abnormal coagulation profile; D50.9 Iron deficiency anemia, unspecified; Z79.82 Long term (current) use of aspirin; Z79.4 Long term (current) use of insulin; Z95.5 Presence of coronary angioplasty implant and graft; I25.10 Atherosclerotic heart disease of native coronary artery without angina pectoris; K92.2 Gastrointestinal hemorrhage, unspecified; N28.9 Disorder of kidney and ureter, unspecified; I25.2 Old myocardial infarction; E11.9 Type 2 diabetes mellitus without complications; N40.0 Benign prostatic hyperplasia without lower urinary tract symptoms

== ENCOUNTER 2023-01-08 16:40 | Inpatient (IN) ==
--- NOTE | 2023-01-08 17:21 | Emergency Department Note ---
Impression & Plan Supratherapeutic INR, Heme positive stool, Elevated troponin, Symptomatic anemia ED Provider Note ED Provider Note NAME: ANGELA SONG JR AGE:77 SEX: Male : 1945 ARRIVES VIA: Private vehicle INFORMANT: Patient ED PROVIDER(s): Janneth Hameed DO CHIEF COMPLAINT: Abnormal outpatient labs, referred from the [facility] HPI: This is a 77-year-old male presents emergency department after being contacted by the [facility] and instructed to come to the emergency room due to concern for worsening anemia as noted on outpatient labs as well as an elevated INR. Patient states he has been on Coumadin for many years, and his last INR last month was 2.8. He states when they called him today they told him it was 4. He states he is also had anemia for a long time but does not know why. He states he had been on iron supplements however stopped those about a month ago. He states they check his blood counts monthly also. He states he has previously had colonoscopies that were reported to him as well appearing. He denies any recent abdominal pain. He states he did notice yesterday that his stools appeared black, no gross blood was noted. He states he was also recently diagnosed with COVID although feels he is starting to improve. He states he notices that he is lightheaded/dizzy with any change in position or exertion. He states he gets easily winded with any exertion additionally. PAST MEDICAL HISTORY:See Below PAST SURGICAL HISTORY:See Below FAMILY HISTORY:See Below SOCIAL HISTORY:See Below HOME MEDICATIONS:See Below ALLERGIES:See Below VITALS:See Below PHYSICAL EXAMINATION: GENERAL: alert, well appearing, well nourished, no distress, non-toxic EYE EXAM: normal conjunctiva, PERRL and EOM's grossly intact OROPHARYNX: no exudate, no erythema, lips, buccal mucosa, and tongue normal and mucous membranes are moist NECK: supple, no nuchal rigidity, no adenopathy, non-tender LUNGS: Clear to auscultation. Normal chest wall mechanics, no w/r/r HEART: no murmurs, S1 normal and S2 normal ABDOMEN: abdomen soft, non-tender, normo-active bowel sounds, no masses, no rebound or guarding. BACK: Back is symmetrical on inspection and there is no deformity, no midline tenderness, no CVA tenderness. SKIN: no rashes, petechiae, orbruising UPPER EXTREMITIES: upper extremities are grossly normal. FROM, nml pulses b/l. LOWER EXTREMITIES: No pitting edema. FROM, nml pulses b/l. NEURO EXAM: Normal sensorium, cranial nerves II-XII grossly intact, normal speech, no facial droop,nogross weakness of arms, no gross weakness of legs. Gross sensation intact. No ataxia. Vital Signs: reviewed and remarkable Differential Diagnosis: Differential Diagnosis includes but is not limited to dehydration, stroke, anemia, hypoglycemia, hyponatremia, hypernatremia, urinary tract infection, pneumonia, bronchitis, sepsis, gastroenteritis, additional abdominal pathology, metabolic abnormalities and infections. MEDICAL DECISION MAKING: This is a 77-year-old male presents emergency department [facility]. Labs here are drawn and sent, IV established, EKG and chest x-ray performed and interpreted by me at bedside, patient placed on telemetry. Discussion with the patient and in conjunction with labs, patient with obvious symptomatic anemia and hemoglobin of 7.2. Bedside rectal exam was positive for blood and given supratherapeutic INR, I suspect this is part of patient's ongoing blood losses despite recent iron supplement treatment. CT imaging ordered additionally. Patient given IV Protonix I discussed with the patient blood transfusion and he was in agreement and signed blood consent form at bedside. Patient with elevated troponin I suspect secondary to demand from significant anemia. 1 unit of packed red cells was ordered and started in the ER. Patient given vitamin K for INR reversal. Case discussed with hospitalist for additional evaluation and management. Consultation(s): 1925: Discussed with Dr. Stewart. 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 Melanotic stools noted which were heme positive on guaiac testing. 191: Blood consent signed at bedside. Diagnostics Interpreted By Me: -ECG: Sinus rhythm at 76 with first-degree AV block, right bundle branch block, leftward axis, normal QTc, nonspecific ST/T wave changes -Cardiac Monitoring: An order was placed for continuous cardiac monitoring. The monitor shows a rate of [] with [] rhythm. -Laboratory studies: As stated above and show below. -Imaging studies: X-ray Chest: A single view study of the chest was reviewed and was negative for cardiomegaly, focal infiltrate, effusion, pulmonary edema, or wide mediastinum. Triage Nursing Note Reviewed Prior/Outside Records Reviewed - [facility] labs reviewed Procedures: [] Critical Care: Critical care of 46 min performed to assess and manage high likelihood of life- threatening anemia and GI bleed, involving labs and imaging performed with assessment to evaluate anemia diagnosis with frequent reassessment. This time includes bedside time, treatment discussions with patient/family/consultants, documentation time and excludes procedure time. Past Med/Surg History Medical History Anemia BPH (benign prostatic hyperplasia) CAD (coronary artery disease) s/p PCI of Cx 2010; chronic LAD occlusion with recannulation Diabetes mellitus, type 2 Emphysema of lung Heart attack --follows with Dr. Maldonado Hyperlipidemia Hypertension ICD (implantable cardioverter-defibrillator) in place originially placed 2010--medtronic @ [facility] [place]. replacement with dual chamber @ [facility] 04/17/2020 last checked few mos ago with Dr. 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 On anticoagulant therapy warfarin daily Paroxysmal A-fib On digoxin, warfarin, coreg Surgical History History of cardiac cath x2--- x1 stent @ [facility] [place] History of colonoscopy with polypectomy last 03/08/20 History of esophagogastroduodenoscopy (EGD) last 03/08/20 History of heart artery stent (1) 2010 @ [facility] [place] History of tonsillectomy and adenoidectomy History of tooth extraction all teeth Family History Other Cancer Heart disease No family history of adverse response to anesthesia No family history of bleeding disorder No pertinent family history Social History Smoking Status: Former smoker Cigarettes Per Day: 2 Packs; Second Hand Exposure: Yes; Hx Alcohol Use: No Hx Substance Use: No Preferred Language: Afghan Communication Ability: Effective 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 Required: No Beliefs That Will Affect Care: None marital status: Current Living Situation: Spouse Feels Safe at Home: Yes Assistive Devices: Denture - Upper, Denture - Lower, Glasses and Hearing Aid - Bilateral Allergies Allergies Allergy/AdvReac Type Severity Reaction Status Date / Time house dust mite Allergy Severe facial Verified 01/08/23 19:49 swelling venom-honey bee Allergy Severe Anaphylaxis Verified 01/08/23 19:49 pioglitazone Allergy Intermediate severe Verified 01/08/23 19:49 headaches phytonadione (vitamin K1) AdvReac Intermediate Chest Pain Verified 01/08/23 23:04 Home Meds Home Medications Medication Instructions Recorded Confirmed carvedilol 12.5 mg tablet 6.25 mg PO AMHS 11/25/18 01/08/23 digoxin 250 mcg (0.25 mg) tablet 250 mcg PO HS 11/25/18 01/08/23 epinephrine 0.3 mg/0.3 mL 0.3 mg IM UD PRN Anaphylaxis 11/25/18 01/08/23 injection, auto-injector hydralazine 25 mg tablet 25 mg PO TID 11/25/18 01/08/23 insulin aspart U-100 100 unit/mL See Rx Instructions .Route .COMPLEX 11/26/18 01/08/23 subcutaneous solution (Novolog U-100 Insulin aspart) insulin glargine 100 unit/mL 60 unit subcut QAM 11/26/18 01/08/23 subcutaneous solution (Lantus U-100 Insulin) isosorbide mononitrate 60 mg 60 mg PO QAM 11/26/18 01/08/23 tablet,extended release 24 hr lisinopril 2.5 mg tablet 2.5 mg PO HS 11/26/18 01/08/23 metformin 1,000 mg tablet 1,000 mg PO BID 11/26/18 01/08/23 nitroglycerin 0.4 mg sublingual 0.4 mg sublingual UD PRN Chest Pain 11/26/18 01/08/23 tablet (Nitrostat) warfarin 5 mg tablet 5 mg PO PM 11/26/18 01/08/23 cetirizine 10 mg tablet (Zyrtec) 10 mg PO QAM 02/29/20 01/08/23 empagliflozin 25 mg tablet 25 mg PO QAM 02/29/20 01/08/23 aspirin 81 mg tablet,delayed 81 mg PO QAM 09/20/20 01/08/23 release hydrocodone 5 mg-acetaminophen 325 1 tab PO Q4 PRN Pain 04/17/22 01/08/23 mg tablet rosuvastatin 40 mg tablet 40 mg PO QAM 04/17/22 01/08/23 cyanocobalamin (vitamin B-12) 100 100 mcg PO QAM 12/31/22 01/08/23 mcg tablet ferrous sulfate 325 mg (65 mg 325 mg PO Q OTHER DAY 12/31/22 01/08/23 iron) tablet (Iron (ferrous sulfate)) omega-3 acid ethyl esters 1 gram 2 cap PO AMPM 12/31/22 01/08/23 capsule pantoprazole 40 mg tablet,delayed 40 mg PO QAM 12/31/22 01/08/23 release hydroxyzine HCl 25 mg tablet 25 mg PO TID PRN Itching 01/08/23 01/08/23 tamsulosin 0.4 mg capsule 0.4 mg PO QPM 01/08/23 01/08/23 Results & Data (ED) Vital Signs Vital Signs - 24 hr 01/08/23 16:54 01/08/23 17:28 01/08/23 18:28 Temperature 36.7 C Temperature Source Temporal Artery Scan Pulse Rate 83 Pulse Rate [Radial] 78 71 Pulse Rhythm [Radial] Regular Pulse Strength [Radial] Normal Respiratory Rate 20 17 20 Respiratory Effort / Characteristics Non-Labored Spontaneous Non-Labored Spontaneous Respiratory Depth Normal Normal Respiratory Pattern Regular Regular Blood Pressure 148/57 H Blood Pressure [Right Arm] 136/71 132/66 Blood Pressure Mean 87 Blood Pressure Mean [Right Arm] 92 88 Blood Pressure Position Sitting Blood Pressure Position [Right Arm] Lying Lying Pulse Oximetry 99 97 97 Oxygen Delivery Method Room Air Room Air Room Air Sepsis Recent Fever Within 48 Hours No Sepsis New/Unexplained Change in Mental Status No Sepsis Action Taken by Nursing No Action Required 01/08/23 18:36 01/08/23 18:33 01/08/23 18:45 Temperature Temperature Source Pulse Rate 77 75 89 Pulse Rate [Radial] Pulse Rhythm [Radial] Pulse Strength [Radial] Respiratory Rate 16 21 Respiratory Effort / Characteristics Respiratory Depth Respiratory Pattern Blood Pressure Blood Pressure [Right Arm] Blood Pressure Mean Blood Pressure Mean [Right Arm] Blood Pressure Position Blood Pressure Position [Right Arm] Pulse Oximetry 98 100 Oxygen Delivery Method Room Air Room Air Sepsis Recent Fever Within 48 Hours Sepsis New/Unexplained Change in Mental Status Sepsis Action Taken by Nursing 01/08/23 19:00 01/08/23 19:15 01/08/23 19:30 Temperature Temperature Source Pulse Rate 75 71 73 Pulse Rate [Radial] Pulse Rhythm [Radial] Pulse Strength [Radial] Respiratory Rate 21 17 18 Respiratory Effort / Characteristics Respiratory Depth Respiratory Pattern Blood Pressure Blood Pressure [Right Arm] Blood Pressure Mean Blood Pressure Mean [Right Arm] Blood Pressure Position Blood Pressure Position [Right Arm] Pulse Oximetry 99 99 98 Oxygen Delivery Method Room Air Room Air Room Air Sepsis Recent Fever Within 48 Hours Sepsis New/Unexplained Change in Mental Status Sepsis Action Taken by Nursing 01/08/23 19:45 01/08/23 19:48 Temperature Temperature Source Pulse Rate 78 76 Pulse Rate [Radial] Pulse Rhythm [Radial] Pulse Strength [Radial] Respiratory Rate 17 Respiratory Effort / Characteristics Respiratory Depth Respiratory Pattern Blood Pressure 120/101 H Blood Pressure [Right Arm] Blood Pressure Mean 107 Blood Pressure Mean [Right Arm] Blood Pressure Position Blood Pressure Position [Right Arm] Pulse Oximetry 97 Oxygen Delivery Method Room Air Sepsis Recent Fever Within 48 Hours Sepsis New/Unexplained Change in Mental Status Sepsis Action Taken by Nursing Laboratory Data 01/08/23 17:35 01/08/23 17:35 Lab Results 01/08/23 01/08/23 01/08/23 Range/Units 17:35 17:35 17:35 WBC 6.65 (4.8-10.8) K/ul RBC 3.25 L (4.70-6.10) M/uL Hgb 7.2 L (14.0-18.0) g/dl Hct 24.4 L (42.0-52.0) % MCV 75.1 L (80.0-100.0) fL MCH 22.2 L (25.0-34.0) pg MCHC 29.5 L (32.0-36.0) g/dL RDW Std Deviation 48.7 H (36.4-46.3) fL RDW Coeff of Shasha 18.1 H (11.5-14.5) % Plt Count 271 (130-400) K/uL MPV 10.6 (9.4-12.4) fL Immature Gran % (Auto) 0.3 % Neut % (Auto) 46.6 % Lymph % (Auto) 32.9 % [place] % (Auto) 15.3 % Eos % (Auto) 4.4 % Baso % (Auto) 0.5 % Neut # (Auto) 3.10 (1.40-6.50) K/uL Lymph # (Auto) 2.19 (1.2-3.4) K/uL [place] # (Auto) 1.02 H (0.11-0.59) K/uL Eos # (Auto) 0.29 (0-0.50) K/uL Baso # (Auto) 0.03 (0-0.2) K/uL Immature Gran # (Auto) 0.02 (0.01-0.20) K/uL Hypochromasia Present Ovalocytes 1+ PT 56.5 H (9.0-12.0) Seconds INR 5.8 H* (0.9-1.1) Sodium 137 (136-145) mmol/L Potassium 4.1 (3.5-5.1) mmol/L Chloride 106 (98-107) mmol/L Carbon Dioxide 24 (21-32) mmol/L Anion Gap 7 (3-11) BUN 23 (6-23) mg/dl Creatinine 1.20 (0.6-1.4) mg/dl Est Cr Clr Drug Dosing Not Reportable Est GFR ( Amer) 66.7 ml/min Est GFR (Non-Af Amer) 57.6 ml/min BUN/Creatinine Ratio 19.2 (10-20) Glucose 257 H (70-99(Fasting)) mg/dl Calcium 8.4 L (8.6-10.3) mg/dl Magnesium 2.0 (1.7-2.4) mg/dl Total Bilirubin 0.4 (0.2-1.0) mg/dl AST 13 (13-39) U/L ALT 11 (7-52) U/L Alkaline Phosphatase 58 (34-104) U/L Troponin I High Sens 32.2 H (0-20) pg/ml Total Protein 7.0 (6.0-8.3) gm/dl Albumin 3.9 (3.4-5.0) gm/dl Globulin 3.1 (2.5-4.0) gm/dl Albumin/Globulin Ratio 1.3 (0.9-2) Lipase 42 (11-82) U/L SARS-CoV-2, RNA, NAAT (NEGATIVE) Blood Type Antibody Screen Crossmatch 01/08/23 01/08/23 Range/Units 18:58 19:47 WBC (4.8-10.8) K/ul RBC (4.70-6.10) M/uL Hgb (14.0-18.0) g/dl Hct (42.0-52.0) % MCV (80.0-100.0) fL MCH (25.0-34.0) pg MCHC (32.0-36.0) g/dL RDW Std Deviation (36.4-46.3) fL RDW Coeff of Shasha (11.5-14.5) % Plt Count (130-400) K/uL MPV (9.4-12.4) fL Immature Gran % (Auto) % Neut % (Auto) % Lymph % (Auto) % [place] % (Auto) % Eos % (Auto) % Baso % (Auto) % Neut # (Auto) (1.40-6.50) K/uL Lymph # (Auto) (1.2-3.4) K/uL [place] # (Auto) (0.11-0.59) K/uL Eos # (Auto) (0-0.50) K/uL Baso # (Auto) (0-0.2) K/uL Immature Gran # (Auto) (0.01-0.20) K/uL Hypochromasia Ovalocytes PT (9.0-12.0) Seconds INR (0.9-1.1) Sodium (136-145) mmol/L Potassium (3.5-5.1) mmol/L Chloride (98-107) mmol/L Carbon Dioxide (21-32) mmol/L Anion Gap (3-11) BUN (6-23) mg/dl Creatinine (0.6-1.4) mg/dl Est Cr Clr Drug Dosing Est GFR ( Amer) ml/min Est GFR (Non-Af Amer) ml/min BUN/Creatinine Ratio (10-20) Glucose (70-99(Fasting)) mg/dl Calcium (8.6-10.3) mg/dl Magnesium (1.7-2.4) mg/dl Total Bilirubin (0.2-1.0) mg/dl AST (13-39) U/L ALT (7-52) U/L Alkaline Phosphatase (34-104) U/L Troponin I High Sens (0-20) pg/ml Total Protein (6.0-8.3) gm/dl Albumin (3.4-5.0) gm/dl Globulin (2.5-4.0) gm/dl Albumin/Globulin Ratio (0.9-2) Lipase (11-82) U/L SARS-CoV-2, RNA, NAAT POSITIVE A* (NEGATIVE) Blood Type A Positive Antibody Screen NEGATIVE Crossmatch See Detail Administered Medications Carvedilol (Carvedilol 6.25 Mg Tab) 6.25 mg PO AMHS EMELYN Stop: 02/07/23 23:15 Last Admin: 01/09/23 00:13 Dose: 6.25 mg Documented By: ROSSI Digoxin (Digoxin 0.25 Mg Tab) 0.25 mg PO [facility] Stop: 02/08/23 00:04 Last Admin: 01/09/23 00:48 Dose: 0.25 mg Documented By: ROSSI Hydralazine HCl (Hydralazine Hcl 25 Mg Tab) 25 mg PO TID EMELYN Stop: 02/07/23 23:15 Last Admin: 01/09/23 00:14 Dose: 25 mg Documented By: ROSSI Pantoprazole Sodium 40 mg/ (Dextrose) 100 mls @ 20 mls/hr IV Q5H EMELYN Stop: 02/07/23 19:29 Last Admin: 01/08/23 21:35 Dose: 8 mg/hr, 20 mls/hr Documented By: GADIEL Insulin Aspart (Insulin Aspart Per Unit Charge) 0 units SC Q6 EMELYN Stop: 02/08/23 00:00 Last Admin: 01/09/23 00:16 Dose: Not Given Documented By: ROSSI Lisinopril (Lisinopril 2.5 Mg Tab) 2.5 mg PO HS EMELYN Stop: 02/07/23 23:15 Last Admin: 01/09/23 00:15 Dose: 2.5 mg Documented By: ROSSI Discontinued Medications Sodium Chloride (Nss 1000ml) 1,000 mls @ 125 mls/hr IV .Q8H EMELYN Stop: 02/07/23 18:44 Last Infusion: 01/08/23 22:08 Dose: 0 mls/hr Documented By: Admin: 01/08/23 19:03 Dose: 125 mls/hr Documented By: GADIEL Phytonadione 10 mg/ Sodium (Chloride) 51 mls @ 102 mls/hr IV ONE ONE Stop: 01/08/23 19:59 Last Infusion: 01/08/23 22:29 Dose: 0 mls/hr Documented By: Admin: 01/08/23 22:13 Dose: 102 mls/hr Documented By: GADIEL Pantoprazole Sodium 80 mg/ (Dextrose) 120 mls @ 480 mls/hr IV ONE ONE Stop: 01/08/23 19:44 Last Infusion: 01/08/23 21:10 Dose: 0 mls/hr Documented By: Admin: 01/08/23 20:29 Dose: 480 mls/hr Documented By: GADIEL Prothrombin Complex Concent ( (Human) 2,000 units/ Syringe) 80 mls @ 10 mls/min IV NOW ONE; Protocol Stop: 01/08/23 23:22 Last Admin: 01/09/23 00:11 Dose: 10 mls/min Documented By: ROSSI Nitroglycerin (Nitroglycerin Sl 0.4 Mg/Tab Tab) 0.4 mg SL NOW STA Stop: 01/08/23 22:31 Last Admin: 01/08/23 22:53 Dose: Not Given Documented By: GADIEL Imaging Data Radiologist's Impression: Chest X-Ray 01/08/23 17:17 XR chest 1V portable CLINICAL HISTORY: Shortness of breath. COMPARISON STUDY: Chest radiograph and chest CT December 31, 2022. FINDINGS: No pneumothorax or effusion is present. A left subclavian pacer/AICD is in place. Cardiomegaly is unchanged. No evidence for pulmonary edema. No consolidation to suggest pneumonia. There has been no change in appearance of the chest. IMPRESSION: No acute cardiopulmonary findings. ACT 112: Negative or not required by law. Electronically signed by: Eladio Galaviz M.D. 01/08/2023 5:36 PM Discharge Plan Visit Data Chief Complaint: Abnormal Labs/Diagnostic Testing Stated Complaint: ABNORMAL LABS, REF BY DOC ED Provider: Janneth Hameed Discharge Problem: Supratherapeutic INR, Heme positive stool, Elevated troponin, Symptomatic anemia Patient Disposition: Admitted As Inpatient Discharge Instructions Interventions: ED Discharge Assessment Last Done: 01/08/23 22:20
--- NOTE | 2023-01-08 17:38 | XRay Report ---
XR chest 1V portable CLINICAL HISTORY: Shortness of breath. COMPARISON STUDY: Chest radiograph and chest CT December 31, 2022. FINDINGS: No pneumothorax or effusion is present. A left subclavian pacer/AICD is in place. Cardiomeg renay is unchanged. No evidence for pulmonary edema. No consolidation to suggest pneumonia. There has b een no change in appearance of the chest. IMPRESSION: No acute cardiopulmonary findings. ACT 112: Negative or not required by law. Electronically signed by: Eladio Galaviz M.D. 01/08/2023 5:36 PM
[2023-01-08 17:59] LABS: Basophils # (auto) 0.03 K/uL (0-0.2); Basophils % (auto) 0.5 %; Eosinophils # (auto) 0.29 K/uL (0-0.50); Eosinophils % (auto) 4.4 %; Hematocrit (blood only) 24.4 % (42.0-52.0); Hemoglobin 7.2 g/dl (14.0-18.0); Immature Granulocytes # (auto) 0.02 K/uL (0.01-0.20); Immature Granulocytes % (auto) 0.3 %; Lymphocytes # (auto) 2.19 K/uL (1.2-3.4); Lymphocytes % (auto) 32.9 %; Mean Corpuscular Hemoglobin 22.2 pg (25.0-34.0); Mean Corpuscular Hgb Conc 29.5 g/dL (32.0-36.0); Mean Corpuscular Volume 75.1 fL (80.0-100.0); Mean Platelet Volume 10.6 fL (9.4-12.4); Monocytes # (auto) 1.02 K/uL (0.11-0.59); Monocytes % (auto) 15.3 %; Neutrophils % (auto) 46.6 %; Platelet Count 271 K/uL (130-400); RDW Coefficient of Variation 18.1 % (11.5-14.5); RDW Standard Deviation 48.7 fL (36.4-46.3); Red Blood Count 3.25 M/uL (4.70-6.10); White Blood Count 6.65 K/ul (4.8-10.8)
[2023-01-08 18:18] LABS: Alanine Aminotransferase 11 U/L (7-52); Albumin Globulin Ratio 1.3 (0.9-2); Albumin Level 3.9 gm/dl (3.4-5.0); Alkaline Phosphatase 58 U/L (34-104); Anion Gap 7 (3-11); Aspartate Aminotransferase 13 U/L (13-39); BUN Creatinine Ratio 19.2 (10-20); Bilirubin,Total 0.4 mg/dl (0.2-1.0); Blood Urea Nitrogen 23 mg/dl (6-23); Calcium 8.4 mg/dl (8.6-10.3); Carbon Dioxide 24 mmol/L (21-32); Chloride 106 mmol/L (98-107); Est GFR (African American) 66.7 ml/min; Est GFR (Non-African American) 57.6 ml/min; Globulin 3.1 gm/dl (2.5-4.0); Glucose 257 mg/dl (70-99(Fasting)); Lipase 42 U/L (11-82); Potassium 4.1 mmol/L (3.5-5.1); Sodium 137 mmol/L (136-145)
[2023-01-08 18:24] LABS: Troponin I High Sensitivity 32.2 pg/ml (0-20)
[2023-01-08 18:35] LABS: Prothrombin Time 56.5 Seconds (9.0-12.0)
[2023-01-08 18:37] LABS: Hypochromasia Present; Ovalocytes 1+
[2023-01-08] MEDS ORDERED: SODIUM CHLORIDE 0.9% 250 ML IV PRN (18:44)
[2023-01-08] MEDS ORDERED: PHYTONADIONE 2.5 MG in DEXTROSE 5% 50 ML IV ONE (18:44)
[2023-01-08] MEDS ORDERED: SODIUM CHLORIDE 0.9% 1000ML 1,000 ML IV SCH (18:45)
[2023-01-08] MEDS ORDERED: PANTOprazole 40 MG in SYRINGE 0 ML IV ONE (19:02)
[2023-01-08] MEDS ORDERED: PANTOPRAZOLE BOLUS/DRIP 1 EACH IV STA (19:11)
[2023-01-08] MEDS ORDERED: PHYTONADIONE 10 MG in SODIUM CHLORIDE 0.9% 50 ML IV ONE (19:30)
[2023-01-08] MEDS ORDERED: PANTOprazole 80 MG in DEXTROSE 5% 100 ML IV ONE (19:30)
--- NOTE | 2023-01-08 19:51 | History & Physical Report ---
Date of Service January 08, 2023 Assessment & Plan (1) Symptomatic anemia: Plan: Recurrent UGIB in the setting of Coumadin coagulopathy, history SSS status post PPM Hemoglobin drop from baseline chronic systolic heart failure secondary to ischemic cardiomyopathy (EF 35%, TTE 2020), patient euvolemic hx CAD status post stent valvular heart disease (mild MR/TR) hypertension, stable hyperlipidemia on statin Rx COPD, baseline pulmonary status DM 2 insulin requiring, suboptimal control as of recent hemoglobin A1c of 9.2 last December 2022 Left kidney cancer status post ablation Recent COVID-19 illness, symptoms resolved although COVID swab still positive after first test from December 31, 2022 past tobacco abuse Medical telemetry Transfuse PRBC to maintain hemoglobin above 8 Hold Coumadin and home aspirin IV PPI Vitamin K GI consult Re: Recurrent UGIB N.p.o. until patient seen by GI anticipation of endoscopy Basal bolus insulin adjusted for n.p.o. status, ISS BG goal 1 10-1 40 COVID-19 precautions given positive COVID-19 swab following first positive test of less than 3 weeks duration as per current hospital policy. DVT prophylaxis. SCDs while Coumadin on hold if INR less than 2 Full code Patient daughter requesting updates from providers. Ms. Bella Rodriguez, contact #[phone]. Text document was generated using [employer] voice recognition software. It may contain grammatical or spelling errors. Kindly contact undersigned for clarification of any documentation item in question. ADDENDUM: 10:30 PM Notified by RN of transient chest pain 16 minutes after vitamin K infusion initiated at the ER. Patient received one half of the intended volume as per RN. No rashes or pruritus as per RN. Stop vitamin K and document possible adverse drug reaction in ER. Case discussed with [facility] transfusion specialist Dr. Lozano who recommends Kcentra to reverse coagulopathy resulting in anemia secondary to GI bleed given possible vitamin K reaction. History of Present Illness Chief Complaint: Abnormal blood work Primary Care Provider: Shreyas Miller MD History obtained from patient, family, and records. Medical history significant for chronic systolic heart failure secondary to ischemic cardiomyopathy (EF 35%, TTE 2020), SSS status post PPMon Coumadin, CAD status post stent, valvular heart disease (mild MR/TR), hypertension, hyperlipidemia, COPD, DM 2 insulin requiring, left kidney cancer status post ablation, chronic anemia (baseline hemoglobin of 9), past tobacco abuse Last confinement April 2022 for UGIB in the setting of Coumadin coagulopathy. Outpatient endoscopy recommended by GI, Coumadin resumed on discharge. Patient unable to comply with outpatient endoscopy as instructed as per daughter due to hypoglycemia concerns if patient were not to eat prior to procedure. Last ER visit last week for COVID-19 illness presenting with cough symptoms, clear sputum, weakness without chest pain/unusual SOB symptoms. Patient completed COVID-19 vaccination. Patient discharged home from the ER as per request. COVID-19 symptoms resolved at home. PCP follow-up scheduled for tomorrow. 2 days ago, patient noted worsening shortness of breath on exertion more than usual. No headache, no chest pain, no abdominal pain. Patient unaware of stool color as he does not look at his bowel movements in the toilet. Patient went for routine outpatient blood work at the [facility] today. Hemoglobin noted to be 7, INR noted to be 5. Patient directed to ER for evaluation. Heme positive melanotic stool documented at the ER. 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 Allergies Allergy/AdvReac Type Severity Reaction Status Date / Time house dust mite Allergy Severe facial Verified 01/08/23 19:49 swelling venom-honey bee Allergy Severe Anaphylaxis Verified 01/08/23 19:49 pioglitazone Allergy Intermediate severe Verified 01/08/23 19:49 headaches phytonadione (vitamin K1) AdvReac Intermediate Chest Pain Verified 01/08/23 23:04 Home Medications Medication Instructions Recorded Confirmed Type carvedilol 12.5 mg tablet 6.25 mg PO AMHS 11/25/18 01/08/23 History digoxin 250 mcg (0.25 mg) tablet 250 mcg PO HS 11/25/18 01/08/23 History epinephrine 0.3 mg/0.3 mL 0.3 mg IM UD PRN Anaphylaxis 11/25/18 01/08/23 History injection, auto-injector hydralazine 25 mg tablet 25 mg PO TID 11/25/18 01/08/23 History insulin aspart U-100 100 unit/mL See Rx Instructions .Route .COMPLEX 11/26/18 01/08/23 History subcutaneous solution (Novolog U-100 Insulin aspart) insulin glargine 100 unit/mL 60 unit subcut QAM 11/26/18 01/08/23 History subcutaneous solution (Lantus U-100 Insulin) isosorbide mononitrate 60 mg 60 mg PO QAM 11/26/18 01/08/23 History tablet,extended release 24 hr lisinopril 2.5 mg tablet 2.5 mg PO HS 11/26/18 01/08/23 History metformin 1,000 mg tablet 1,000 mg PO BID 11/26/18 01/08/23 History nitroglycerin 0.4 mg sublingual 0.4 mg sublingual UD PRN Chest Pain 11/26/18 01/08/23 History tablet (Nitrostat) warfarin 5 mg tablet 5 mg PO PM 11/26/18 01/08/23 History cetirizine 10 mg tablet (Zyrtec) 10 mg PO QAM 02/29/20 01/08/23 History empagliflozin 25 mg tablet 25 mg PO QAM 02/29/20 01/08/23 History aspirin 81 mg tablet,delayed 81 mg PO QAM 09/20/20 01/08/23 History release hydrocodone 5 mg-acetaminophen 325 1 tab PO Q4 PRN Pain 04/17/22 01/08/23 History mg tablet rosuvastatin 40 mg tablet 40 mg PO QAM 04/17/22 01/08/23 History cyanocobalamin (vitamin B-12) 100 100 mcg PO QAM 12/31/22 01/08/23 History mcg tablet ferrous sulfate 325 mg (65 mg 325 mg PO Q OTHER DAY 12/31/22 01/08/23 History iron) tablet (Iron (ferrous sulfate)) omega-3 acid ethyl esters 1 gram 2 cap PO AMPM 12/31/22 01/08/23 History capsule pantoprazole 40 mg tablet,delayed 40 mg PO QAM 12/31/22 01/08/23 History release hydroxyzine HCl 25 mg tablet 25 mg PO TID PRN Itching 01/08/23 01/08/23 History tamsulosin 0.4 mg capsule 0.4 mg PO QPM 01/08/23 01/08/23 History Past Med/Surg History Medical History Anemia BPH (benign prostatic hyperplasia) CAD (coronary artery disease) s/p PCI of Cx 2010; chronic LAD occlusion with recannulation Diabetes mellitus, type 2 Emphysema of lung Heart attack --follows with Dr. Maldonado Hyperlipidemia Hypertension ICD (implantable cardioverter-defibrillator) in place originially placed 2010[place] [facility] [place] @ [facility] 04/17/2020 last checked few mos ago with Dr. 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 On anticoagulant therapy warfarin daily Paroxysmal A-fib On digoxin, warfarin, coreg Surgical History History of cardiac cath x2--- [place] [facility] [place] of colonoscopy with polypectomy last 03/08/20 History of esophagogastroduodenoscopy (EGD) last 03/08/20 History of heart artery stent (1) 2010 [place] [facility] [place] [place] of tonsillectomy and adenoidectomy History of tooth extraction all teeth Family History Other Cancer Heart disease No family history of adverse response to anesthesia No family history of bleeding disorder No pertinent family history Social History Smoking Status: Former smoker Second Hand Exposure: No; Hx Alcohol Use: No Hx Substance Use: No Preferred Language: Nepali Communication Ability: Effective Pantograph I Engraver Required: No Beliefs That Will Affect Care: None marital status: Current Living Situation: Spouse Feels Safe at Home: Yes Assistive Devices: Denture - Upper, Denture - Lower, Glasses and Hearing Aid - Bilateral Review of Systems Review of Systems: As per HPI, all other systems reviewed and negative Physical Exam Physical Exam: GENERAL: pleasant, restless (chronic as per daughter), no respiratory distress SKIN: Pallor, warm HEENT: Alopecia, pale palpebral conjunctivae, no ptosis, dry buccal mucosa NECK : Supple, no tenderness CHEST : Decreased breath sounds, no tenderness HEART : RRR, no obvious murmurs ABDOMEN: Some distention, nontender EXTREMITIES : No LE swelling/tenderness, no other conspicuous deformities noted NEUROLOGIC : Coherent, no facial asymmetry, gait and stance not assessed Results & Data Results & Data Vital Signs (Past 12 Hours) Vital Signs Temp Pulse Pulse Resp BP BP Pulse Ox 01/08/23 19:30 73 18 98 01/08/23 19:15 71 17 99 01/08/23 19:00 75 21 99 01/08/23 18:45 89 21 100 01/08/23 18:33 75 16 98 01/08/23 18:36 77 01/08/23 18:28 71 20 132/66 97 01/08/23 17:28 78 17 136/71 97 01/08/23 16:54 36.7 C 83 20 148/57 H 99 O2 Del Method 01/08/23 19:30 Room Air 01/08/23 19:15 Room Air 01/08/23 19:00 Room Air 01/08/23 18:45 Room Air 01/08/23 18:33 Room Air 01/08/23 18:36 01/08/23 18:28 Room Air 01/08/23 17:28 Room Air 01/08/23 16:54 Room Air Laboratory Results Laboratory Results WBC 6.65 K/ul (4.8-10.8) 01/08/23 17:35 RBC 3.25 M/uL (4.70-6.10) L 01/08/23 17:35 Hgb 7.2 g/dl (14.0-18.0) L 01/08/23 17:35 Hct 24.4 % (42.0-52.0) L 01/08/23 17:35 MCV 75.1 fL (80.0-100.0) L 01/08/23 17:35 MCH 22.2 pg (25.0-34.0) L 01/08/23 17:35 MCHC 29.5 g/dL (32.0-36.0) L 01/08/23 17:35 RDW Std Deviation 48.7 fL (36.4-46.3) H 01/08/23 17:35 RDW Coeff of Shasha 18.1 % (11.5-14.5) H 01/08/23 17:35 Plt Count 271 K/uL (130-400) 01/08/23 17:35 MPV 10.6 fL (9.4-12.4) 01/08/23 17:35 Immature Gran % (Auto) 0.3 % 01/08/23 17:35 Neut % (Auto) 46.6 % 01/08/23 17:35 Lymph % (Auto) 32.9 % 01/08/23 17:35 [place] % (Auto) 15.3 % 01/08/23 17:35 Eos % (Auto) 4.4 % 01/08/23 17:35 Baso % (Auto) 0.5 % 01/08/23 17:35 Neut # (Auto) 3.10 K/uL (1.40-6.50) 01/08/23 17:35 Lymph # (Auto) 2.19 K/uL (1.2-3.4) 01/08/23 17:35 [place] # (Auto) 1.02 K/uL (0.11-0.59) H 01/08/23 17:35 Eos # (Auto) 0.29 K/uL (0-0.50) 01/08/23 17:35 Baso # (Auto) 0.03 K/uL (0-0.2) 01/08/23 17:35 Immature Gran # (Auto) 0.02 K/uL (0.01-0.20) 01/08/23 17:35 Hypochromasia Present 01/08/23 17:35 Ovalocytes 1+ 01/08/23 17:35 PT 56.5 Seconds (9.0-12.0) H 01/08/23 17:35 Sodium 137 mmol/L (136-145) 01/08/23 17:35 Potassium 4.1 mmol/L (3.5-5.1) 01/08/23 17:35 Chloride 106 mmol/L (98-107) 01/08/23 17:35 Carbon Dioxide 24 mmol/L (21-32) 01/08/23 17:35 Anion Gap 7 (3-11) 01/08/23 17:35 BUN 23 mg/dl (6-23) 01/08/23 17:35 Creatinine 1.20 mg/dl (0.6-1.4) 01/08/23 17:35 Est Cr Clr Drug Dosing Not Reportable 01/08/23 17:35 Est GFR ( Amer) 66.7 ml/min 01/08/23 17:35 Est GFR (Non-Af Amer) 57.6 ml/min 01/08/23 17:35 BUN/Creatinine Ratio 19.2 (10-20) 01/08/23 17:35 Glucose 257 mg/dl (70-99(Fasting)) H 01/08/23 17:35 Calcium 8.4 mg/dl (8.6-10.3) L 01/08/23 17:35 Magnesium 2.0 mg/dl (1.7-2.4) 01/08/23 17:35 Total Bilirubin 0.4 mg/dl (0.2-1.0) 01/08/23 17:35 AST 13 U/L (13-39) 01/08/23 17:35 ALT 11 U/L (7-52) 01/08/23 17:35 Alkaline Phosphatase 58 U/L (34-104) 01/08/23 17:35 Troponin I High Sens 32.2 pg/ml (0-20) H 01/08/23 17:35 Total Protein 7.0 gm/dl (6.0-8.3) 01/08/23 17:35 Albumin 3.9 gm/dl (3.4-5.0) 01/08/23 17:35 Globulin 3.1 gm/dl (2.5-4.0) 01/08/23 17:35 Albumin/Globulin Ratio 1.3 (0.9-2) 01/08/23 17:35 Lipase 42 U/L (11-82) 01/08/23 17:35 Crossmatch See Detail 01/08/23 18:58 Impressions Chest X-Ray 01/08/23 17:17 XR chest 1V portable CLINICAL HISTORY: Shortness of breath. COMPARISON STUDY: Chest radiograph and chest CT December 31, 2022. FINDINGS: No pneumothorax or effusion is present. A left subclavian pacer/AICD is in place. Cardiomegaly is unchanged. No evidence for pulmonary edema. No consolidation to suggest pneumonia. There has been no change in appearance of the chest. IMPRESSION: No acute cardiopulmonary findings. ACT 112: Negative or not required by law. Electronically signed by: Eladio Galaviz M.D. 01/08/2023 5:36 PM Diagnostic Findings EKG as per my interpretation : Rate 75, NSR, LAD, LAFB, 1 AVB, septal infarct, T wave abnormalities lateral leads
[2023-01-08 21:20] LABS: INR 5.8 (0.9-1.1)
[2023-01-08] MEDS: PANTOprazole 40 MG in DEXTROSE 5% 100 ML IV SCH (21:35)
[2023-01-08] MEDS ORDERED: NITROGLYCERIN SL 0.4 MG/TAB TAB SL STA (22:30)
[2023-01-08] MEDS ORDERED: PROTHROMBIN COMP CONC- KCENTRA 2,000 UNITS in SYRINGE 0 ML IV ONE (23:15)
[2023-01-08] MEDS ORDERED: ACETAMINOPHEN 325 MG TAB PO PRN (23:16)
[2023-01-08] MEDS ORDERED: PROMETHAZINE HCL 6.25 MG in SODIUM CHLORIDE 0.9% 50 ML IV PRN (23:16)
[2023-01-08] MEDS ORDERED: NITROGLYCERIN SL 0.4 MG/TAB TAB SL PRN (23:16)
[2023-01-08] MEDS ORDERED: hydrOXYzine HCl 25 MG TAB PO PRN (23:16)
[2023-01-08] MEDS ORDERED: GLUCOSE 10 TAB/TUBE PO PRN (23:16)
[2023-01-08] MEDS ORDERED: oxyCODONE HCL IR 5 MG TAB (IMMEDIATE RELEASE) PO PRN (23:16)
[2023-01-08] MEDS ORDERED: GLUCOSE 40% GEL 15 GM TUBE PO PRN (23:16)
[2023-01-08] MEDS ORDERED: GLUCAGON FOR INJ 1 MG VIAL SQ PRN (23:16)
[2023-01-08] MEDS ORDERED: CARBOHYDRATES FOR HYPOGLYCEMIA PO PRN (23:16)
[2023-01-08] MEDS ORDERED: DEXTROSE 50% 50 ML SYRINGE IV PRN (23:16)
[2023-01-09] MEDS: carvediloL 6.25 MG TAB PO SCH ×3 (00:13→19:58)
[2023-01-09] MEDS: hydrALAZINE HCL 25 MG TAB PO SCH ×4 (00:14→20:00)
[2023-01-09] MEDS: lisinopril 2.5 MG TAB PO SCH ×2 (00:15→20:00)
[2023-01-09] MEDS: INSULIN ASPART PER UNIT CHARGE SC SCH ×5 (00:16→21:02)
[2023-01-09] MEDS: DIGOXIN 0.25 MG TAB PO SCH ×2 (00:48→19:59)
[2023-01-09] MEDS ORDERED: SODIUM CHLORIDE 0.9% 250 ML IV PRN (00:56)
[2023-01-09] MEDS: PANTOprazole 40 MG in DEXTROSE 5% 100 ML IV SCH ×5 (02:20→22:05)
[2023-01-09 06:01] LABS: Basophils # (auto) 0.04 K/uL (0-0.2); Basophils % (auto) 0.4 %; Eosinophils # (auto) 0.21 K/uL (0-0.50); Eosinophils % (auto) 2.3 %; Hematocrit (blood only) 28.9 % (42.0-52.0); Hemoglobin 8.6 g/dl (14.0-18.0); Immature Granulocytes # (auto) 0.04 K/uL (0.01-0.20); Immature Granulocytes % (auto) 0.4 %; Lymphocytes # (auto) 2.15 K/uL (1.2-3.4); Lymphocytes % (auto) 23.8 %; Mean Corpuscular Hemoglobin 22.6 pg (25.0-34.0); Mean Corpuscular Hgb Conc 29.8 g/dL (32.0-36.0); Mean Corpuscular Volume 75.9 fL (80.0-100.0); Mean Platelet Volume 10.4 fL (9.4-12.4); Monocytes # (auto) 0.84 K/uL (0.11-0.59); Monocytes % (auto) 9.3 %; Neutrophils # (auto) 5.76 K/uL (1.40-6.50); Neutrophils % (auto) 63.8 %; Platelet Count 258 K/uL (130-400); RDW Coefficient of Variation 18.5 % (11.5-14.5); RDW Standard Deviation 50.3 fL (36.4-46.3); Red Blood Count 3.81 M/uL (4.70-6.10); White Blood Count 9.04 K/ul (4.8-10.8)
[2023-01-09 06:17] LABS: BUN Creatinine Ratio 18.3 (10-20); Calcium 8.4 mg/dl (8.6-10.3); Creatinine Clr Calc Pharmacy 58.5 ml/min; Est GFR (African American) 79.3 ml/min; Est GFR (Non-African American) 68.4 ml/min
[2023-01-09 06:23] LABS: Troponin I High Sensitivity 30.5 pg/ml (0-20)
[2023-01-09 06:34] LABS: INR 1.3 (0.9-1.1); Prothrombin Time 13.7 Seconds (9.0-12.0)
[2023-01-09] MEDS ORDERED: SODIUM CHLORIDE 0.9% 1000ML 1,000 ML IV SCH (06:45)
[2023-01-09] MEDS: ROSUVASTATIN CALCIUM 20 MG TAB PO SCH (07:19)
[2023-01-09] MEDS: CETIRIZINE HCL 10 MG TABLET PO SCH (07:19)
[2023-01-09] MEDS: CYANOCOBALAMIN (B-12) 100 MCG TABLET PO SCH (07:19)
--- NOTE | 2023-01-09 08:24 | Electrocardiogram Report ---
Test Reason : Blood Pressure : / mmHG Vent. 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
[2023-01-09] MEDS ORDERED: LANTUS PER UNIT CHARGE SQ SCH (09:00)
[2023-01-09] MEDS ORDERED: LANTUS PER UNIT CHARGE SQ ONE ×2 (09:15→10:01)
--- NOTE | 2023-01-09 10:38 | Gastrointestinal Consultation ---
Date of Consultation January 09, 2023 Assessment & Plan (1) Supratherapeutic INR: (2) Melena: Most recently yesterday, BUN is normal. Does not seem to be currently bleeding now that the INR was reversed. Plan Because no evidence of currently bleeding today, bleeding was potentiated by a supratherapeutic INR, because the pt needs ongoing anticoagulation for A-fib, and is due for surveillance colonoscopy for hx of adenomatous colon polyps, recommend that we schedule the pt is out of COVID quarantine. Per infection control, should be out of COVID quarantine on Thursday. Family prefers inpt EGD and cscopy. Supervising Physician Co-Signing Physician Notes Pt without evidence of active bleed admit with decreased hgb from baseline and supratherapeutic INR. Also COVID positive. Plan EGD and colonoscopy when out of COVID quarantine. Suspect AVM bleed. Would ask hospitalist to confirm that pt will be out of resp isolation on Thursday - if so, will plan EGD/csocpy on Thursday per family preference. History of Present Illness Reason for Consultation: ugib Requesting Physician: Dr. Marquez Attending Physician: Rubin Salcedo MD History of Present Illness Mr. Keith Bradley is a 77 [facility] a hx of CAD post MIs, A-fib on warfarin, ischemic CM s/p ICD, DM-2 and other as below. He was admitted yesterday for symptomatic anemia and GI is consulted for UGI bleed. The pt reports one black loose BM yesterday morning. He believes he may have had other black BMs but wasn't checking. He passes a BM every 1-2 days and did not have any increased frequency of BMs. He hasn't had a BM since arrival. He denies any abdominal pain, nausea or vomiting. On arrival, his INR was supratherapeutic at 5.8. It was reversed to 1.3 today. Hb was 7.2 down from 9.2 last week. BUN has been normal. He received 1 unit of RBCs and Hb is 8.6 this morning. He is also COVID (+). He says he has been tired for a month but otherwise has not had any COVID symptoms. Most recent EGD was Jun 2021: Normal esophagus. - Normal stomach. - Normal duodenal bulb and second portion of the duodenum. - Duodenal scar, no residual seen. Biopsied. Prior to that in 2019, EGD for melena: - Normal esophagus. - Erythematous mucosa in the antrum. Biopsied. - Normal duodenal bulb, second portion of the duodenum and major papilla. Biopsied. - A single 10 mm duodenal polyp. Mucosal resection was performed. Resected and retrieved. Clips (MR conditional) were placed. Path: tubular adenoma Most recent colonoscopy 2019: Preparation of the colon was fair. - The examined portion of the ileum was normal. - Two 6 mm polyps in the ascending colon, removed with a cold snare. Resected and retrieved. - One 6 mm polyp in the sigmoid colon, removed with a cold snare. Resected and retrieved. - One 6 mm polyp in the rectum, removed with a cold snare. Resected and retrieved. - Non-bleeding internal hemorrhoids. Path: tubular adenoma Rec for surveillance colonoscopy in 3 yrs. Allergies Allergy/AdvReac Type Severity Reaction Status Date / Time house dust mite Allergy Severe facial Verified 01/08/23 19:49 swelling venom-honey bee Allergy Severe Anaphylaxis Verified 01/08/23 19:49 pioglitazone Allergy Intermediate severe Verified 01/08/23 19:49 headaches phytonadione (vitamin K1) AdvReac Intermediate Chest Pain Verified 01/08/23 23:04 Home Medications Medication Instructions Recorded Confirmed Type carvedilol 12.5 mg tablet 6.25 mg PO AMHS 11/25/18 01/08/23 History digoxin 250 mcg (0.25 mg) tablet 250 mcg PO HS 11/25/18 01/08/23 History epinephrine 0.3 mg/0.3 mL 0.3 mg IM UD PRN Anaphylaxis 11/25/18 01/08/23 History injection, auto-injector hydralazine 25 mg tablet 25 mg PO TID 11/25/18 01/08/23 History insulin aspart U-100 100 unit/mL See Rx Instructions .Route .COMPLEX 11/26/18 01/08/23 History subcutaneous solution (Novolog U-100 Insulin aspart) insulin glargine 100 unit/mL 60 unit subcut QAM 11/26/18 01/08/23 History subcutaneous solution (Lantus U-100 Insulin) isosorbide mononitrate 60 mg 60 mg PO QAM 11/26/18 01/08/23 History tablet,extended release 24 hr lisinopril 2.5 mg tablet 2.5 mg PO HS 11/26/18 01/08/23 History metformin 1,000 mg tablet 1,000 mg PO BID 11/26/18 01/08/23 History nitroglycerin 0.4 mg sublingual 0.4 mg sublingual UD PRN Chest Pain 11/26/18 01/08/23 History tablet (Nitrostat) warfarin 5 mg tablet 5 mg PO PM 11/26/18 01/08/23 History cetirizine 10 mg tablet (Zyrtec) 10 mg PO QAM 02/29/20 01/08/23 History empagliflozin 25 mg tablet 25 mg PO QAM 02/29/20 01/08/23 History aspirin 81 mg tablet,delayed 81 mg PO QAM 09/20/20 01/08/23 History release hydrocodone 5 mg-acetaminophen 325 1 tab PO Q4 PRN Pain 04/17/22 01/08/23 History mg tablet rosuvastatin 40 mg tablet 40 mg PO QAM 04/17/22 01/08/23 History cyanocobalamin (vitamin B-12) 100 100 mcg PO QAM 12/31/22 01/08/23 History mcg tablet ferrous sulfate 325 mg (65 mg 325 mg PO Q OTHER DAY 12/31/22 01/08/23 History iron) tablet (Iron (ferrous sulfate)) omega-3 acid ethyl esters 1 gram 2 cap PO AMPM 12/31/22 01/08/23 History capsule pantoprazole 40 mg tablet,delayed 40 mg PO QAM 12/31/22 01/08/23 History release hydroxyzine HCl 25 mg tablet 25 mg PO TID PRN Itching 01/08/23 01/08/23 History tamsulosin 0.4 mg capsule 0.4 mg PO QPM 01/08/23 01/08/23 History Patient History Medical History Anemia BPH (benign prostatic hyperplasia) CAD (coronary artery disease) s/p PCI of Cx 2010; chronic LAD occlusion with recannulation Diabetes mellitus, type 2 Emphysema of lung Heart attack 1991/2004/2010--follows with Dr. Joel Fink Hypertension ICD (implantable cardioverter-defibrillator) in place originially placed 2010--medtronic @ [facility] [place] replacement with dual chamber @ [facility] 04/17/2020 last checked few mos ago with Dr. 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 On anticoagulant therapy warfarin daily Paroxysmal A-fib On digoxin, warfarin, coreg Surgical History History of cardiac cath x2--- x1 stent @ [facility] [place] History of colonoscopy with polypectomy last 03/08/20 History of esophagogastroduodenoscopy (EGD) last 03/08/20 History of heart artery stent (1) 2010 @ [facility] [place] History of tonsillectomy and adenoidectomy History of tooth extraction all teeth Family History Other Cancer Heart disease No family history of adverse response to anesthesia No family history of bleeding disorder No pertinent family history Social History Smoking Status: Former smoker Cigarettes Per Day: 2 Packs; Second Hand Exposure: Yes; Hx Alcohol Use: No Hx Substance Use: No Preferred Language: Slovenian Communication Ability: Effective Box Sealing Inspector Required: No Beliefs That Will Affect Care: None marital status: Current Living Situation: Spouse Feels Safe at Home: Yes Assistive Devices: None Review of Systems Review of Systems: ROS: Gen: + fatigue - much improved with blood transfusion. Denies weakness, fevers, weight loss Eyes: No eye redness, or pain, no recent vision changes Resp: No SOB, no cough Cardio: No palpitations/irregular beats, no chest pain GI: No abdominal pain, no nausea/vomiting : Denies pain on urination Skin: No jaundice, itching or new rashes A total of 12 systems were reviewed, all others (-). Physical Exam Constitutional: WD/WN, vitals as above Eyes: PERRL, conjunctivae normal, anicteric sclerae ENMT: external ear and nose normal, oropharynx normal Neck: trachea midline, no thyromegaly Respiratory: normal respiratory effort, lungs clear to auscultation Cardiovascular: RRR, no murmur, no edema Gastrointestinal (Abdomen): normal bowel sounds, soft, nontender, no hepatosplenomegaly Musculoskeletal: no cyanosis or clubbing, extremities motor strength 5/5 Skin: no rashes, warm and dry Neurologic: PERRL, EOMI, accommodation nl, no face palsy, no dysarthria Psychiatric: A+Ox3, euthymic affect Lymphatic: no cervical or axillary lymphadenopathy Results & Data Vital Signs (Past 12 Hours) Vital Signs Temp Pulse Pulse Resp BP BP Pulse Ox 01/09/23 08:00 01/09/23 07:20 36.5 C 74 18 163/73 H 96 01/09/23 07:00 75 01/09/23 03:31 36.7 C 76 143/64 H 97 01/09/23 03:20 36.7 C 76 18 147/74 H 97 01/09/23 02:20 36.4 C L 68 18 135/67 97 01/09/23 01:50 36.5 C 75 18 135/74 97 01/09/23 01:35 36.7 C 77 18 123/62 96 01/09/23 01:35 36.7 C 77 18 123/62 96 01/09/23 01:16 36.7 C 81 18 123/58 L 92 01/09/23 00:55 87 01/09/23 00:48 71 01/08/23 23:44 01/08/23 23:44 36.6 C 81 18 156/69 H 96 01/08/23 23:16 36.6 C 81 18 156/69 H 96 O2 Del Method 01/09/23 08:00 Room Air 01/09/23 07:20 Room Air 01/09/23 07:00 01/09/23 03:31 01/09/23 03:20 01/09/23 02:20 01/09/23 01:50 01/09/23 01:35 01/09/23 01:35 01/09/23 01:16 01/09/23 00:55 01/09/23 00:48 01/08/23 23:44 Room Air 01/08/23 23:44 Room Air 01/08/23 23:16 Room Air Laboratory Results WBC 9.04, Hb 8.6, Hct 28.9, Plts 258, PT 13.7, INR 1.3, Na 139. K 4.0, Cl 109, CO2 23, BUN 19, Cr 1.04. LFTs normal. Troponins elevated. 32, but decreased from a week ago. Diagnostic Findings CXR 01/08/23: No acute cardiopulmonary findings.
[2023-01-09 13:03] LABS: Hematocrit (blood only) 29.7 % (42.0-52.0); Hemoglobin 8.9 g/dl (14.0-18.0)
--- NOTE | 2023-01-09 15:18 | Hospitalist Progress Note ---
Date of Service January 09, 2023 Assessment & Plan (1) Symptomatic anemia: Plan 72-year-old male with history of A-fib on Coumadin, ischemic cardiomyopathy status post ICD, CAD, DM type II presented ED with GI bleed in setting of supratherapeutic INR GI bleed, suspected UGI in setting of supratherapeutic INR - Status post reversal of Coumadin with Kcentra. S/p PRBC transfusion. No further bleeding noted. Coumadin on hold. On PPI. Seen by GI-did not recommend inpatient scope, recommended outpatient EGD and colonoscopy in approximately a month after no longer COVID infectious. Diet advanced, follow-up H&H Supratherapeutic INR-status post reversal with vitamin K (with reaction) and K centra. INR 5.8-> 1.3. Acute blood loss anemia- Hb recent baseline seems to be 9 but on presentation 7.2. After PRBC transfusion, currently 7.2->8.6->8.9 Chronic systolic heart failure secondary to ischemic cardiomyopathy (EF 35%, TTE 2020), patient euvolemic PAF- on coumadin, digoxin, coreg H/o CAD status post stent Hypertension-BP relatively stable. on HLZ, coreg COPD, baseline pulmonary status-no exacerbation, no wheezing. DM 2 insulin requiring, suboptimal control as of recent hemoglobin A1c of 9.2 last December 2022- continue Lantus, sliding scale insulin, will adjust as in dicated. Left kidney cancer status post ablation Recent COVID-19 illness, symptoms resolved although COVID swab still positive after first test from December 31, 2022. Asymptomatic. DVT prophylaxis. SCDs, chemoprophylaxis C/I currently due to GI bleed requiring transfusion. Full code Updated daughter to provide an update. She would like to get the scopes completed inhouse prior to discharge rather than as outpatient. Relayed to GI team. Noah Bella Rodriguez, contact #[phone]. Admission and Anticipated Discharge Date Admission Date: January 08, 2023 Subjective Patient was seen and examined at bedside. He is hungry and would like to eat. He feels fine. Denies any more bleeding. No nausea or vomiting. No fever, chills, shortness of breath, abdominal pain Review of Systems Review of Systems: All systems reviewed & are unremarkable except as noted in Subjective Physical Exam Physical Exam: General: Lying comfortably in bed, not in distress, on room air HEENT: EOMI, ARNOLD, MMM Chest: Clear breath sounds bilaterally, no wheezes or crackles CVS: Regular rate and rhythm, normal heart sounds, no murmur Abdomen: Soft, non tender, not distended, normal bowel sounds Neuro: Awake, alert, conversing well, non focal Extremities: No cyanosis, clubbing or edema Results & Data Results & Data Vital Signs (Past 12 Hours) Vital Signs Temp Pulse Pulse Pulse Resp BP BP 01/09/23 12:10 36.5 C 75 18 147/65 H 01/09/23 10:42 75 20 142/64 H 01/09/23 08:00 01/09/23 07:20 36.5 C 74 18 163/73 H 01/09/23 07:00 75 01/09/23 03:31 36.7 C 76 143/64 H 01/09/23 03:20 36.7 C 76 18 147/74 H Pulse Ox O2 Del Method 01/09/23 12:10 96 Room Air 01/09/23 10:42 95 Room Air 01/09/23 08:00 Room Air 01/09/23 07:20 96 Room Air 01/09/23 07:00 01/09/23 03:31 97 01/09/23 03:20 97 Laboratory Results Short CBC 01/08/23 01/09/23 01/09/23 Range/Units 17:35 05:29 12:47 WBC 6.65 9.04 (4.8-10.8) K/ul Hgb 7.2 L 8.6 L 8.9 L (14.0-18.0) g/dl Hct 24.4 L 28.9 L 29.7 L (42.0-52.0) % Plt Count 271 258 (130-400) K/uL BMP 01/08/23 01/09/23 17:35 05:29 Sodium 137 139 Potassium 4.1 4.0 Chloride 106 109 H Carbon Dioxide 24 23 BUN 23 19 Creatinine 1.20 1.04 Glucose 257 H 162 H Calcium 8.4 L 8.4 L Liver Function 01/08/23 Range/Units 17:35 Total Bilirubin 0.4 (0.2-1.0) mg/dl AST 13 (13-39) U/L ALT 11 (7-52) U/L Alkaline Phosphatase 58 (34-104) U/L Albumin 3.9 (3.4-5.0) gm/dl Medications Administered Current Inpatient Medications Acetaminophen (Acetaminophen 325 Mg Tab) 650 mg PO Q4H PRN PRN Reason: Pain or Fever Stop: 02/07/23 23:15 Carvedilol (Carvedilol 6.25 Mg Tab) 6.25 mg PO AMHS [facility] Stop: 02/07/23 23:15 Last Admin: 01/09/23 07:19 Dose: 6.25 mg Cetirizine HCl (Cetirizine Hcl 10 Mg Tablet) 10 mg PO QAM [facility] Stop: 02/08/23 08:59 Last Admin: 01/09/23 07:19 Dose: 10 mg Cyanocobalamin (Cyanocobalamin (B-12) 100 Mcg Tablet) 100 mcg PO QAM [facility] Stop: 02/08/23 08:59 Last Admin: 01/09/23 07:19 Dose: 100 mcg Dextrose (Dextrose 50% 50 Ml Syringe) 25 - 50 ml IV UD PRN; Protocol PRN Reason: Hypoglycemia Protocol Stop: 02/07/23 23:15 Digoxin (Digoxin 0.25 Mg Tab) 0.25 mg PO HS [facility] Stop: 02/08/23 00:04 Last Admin: 01/09/23 00:48 Dose: 0.25 mg Glucagon (Glucagon For Inj 1 Mg Vial) 1 mg SQ UD PRN; Protocol PRN Reason: Hypoglycemia Protocol Stop: 02/07/23 23:15 Glucose (Glucose 10 Tab/Tube) 4 - 8 tab PO UD PRN; Protocol PRN Reason: Hypoglycemia Treatment Stop: 02/07/23 23:15 Glucose (Glucose 40% Gel 15 Gm Tube) 15 - 30 gm PO UD PRN; Protocol PRN Reason: Hypoglycemia Protocol Stop: 02/07/23 23:15 Hydralazine HCl (Hydralazine Hcl 25 Mg Tab) 25 mg PO TID [facility] Stop: 02/07/23 23:15 Last Admin: 01/09/23 14:23 Dose: 25 mg Hydroxyzine HCl (Hydroxyzine Hcl 25 Mg Tab) 25 mg PO TID PRN PRN Reason: Itching Stop: 02/07/23 23:15 Pantoprazole Sodium 40 mg/ (Dextrose) 100 mls @ 20 mls/hr IV Q5H [facility] Stop: 02/07/23 19:29 Last Admin: 01/09/23 12:16 Dose: 8 mg/hr, 20 mls/hr Promethazine HCl 6.25 mg/ (Sodium Chloride) 50.25 mls @ 201 mls/hr IV Q6H PRN PRN Reason: Nausea And Vomiting Stop: 02/07/23 23:15 Sodium Chloride (Nss 1000ml) 1,000 mls @ 40 mls/hr IV .Q24H [facility] Stop: 02/08/23 06:44 Last Admin: 01/09/23 07:17 Dose: 40 mls/hr Insulin Aspart (Insulin Aspart Per Unit Charge) 0 units SC Q6 [facility] Stop: 02/08/23 00:00 Last Admin: 01/09/23 12:13 Dose: 12 units Insulin Glargine (Lantus Per Unit Charge) 30 units SQ DAILY [facility] Stop: 02/09/23 08:59 Lisinopril (Lisinopril 2.5 Mg Tab) 2.5 mg PO HS [facility] Stop: 02/07/23 23:15 Last Admin: 01/09/23 00:15 Dose: 2.5 mg Miscellaneous (Carbohydrates For Hypoglycemia ) 15 - 30 gm PO UD PRN PRN Reason: Hypoglycemia Protocol Stop: 02/07/23 23:15 Nitroglycerin (Nitroglycerin Sl 0.4 Mg/Tab Tab) 0.4 mg SL UD PRN PRN Reason: Chest Pain Stop: 02/07/23 23:15 Oxycodone HCl (Oxycodone Hcl Ir 5 Mg Tab (Immediate Release)) 5 mg PO Q4H PRN PRN Reason: Pain Stop: 01/22/23 23:15 Rosuvastatin Calcium (Rosuvastatin Calcium 20 Mg Tab) 40 mg PO QAM [facility] Stop: 02/08/23 08:59 Last Admin: 01/09/23 07:19 Dose: 40 mg
--- NOTE | 2023-01-09 17:14 | Electrocardiogram Report ---
Test Reason : Blood Pressure : / mmHG Vent. 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
[2023-01-09] MEDS ORDERED: DIGOXIN 0.25 MG TAB PO SCH (21:00)
[2023-01-10] MEDS: PANTOprazole 40 MG in DEXTROSE 5% 100 ML IV SCH ×2 (02:56→07:41)
[2023-01-10 06:05] LABS: Hematocrit (blood only) 30.6 % (42.0-52.0); Hemoglobin 9.1 g/dl (14.0-18.0); Mean Corpuscular Hemoglobin 22.4 pg (25.0-34.0); Mean Corpuscular Hgb Conc 29.7 g/dL (32.0-36.0); Mean Corpuscular Volume 75.2 fL (80.0-100.0); Mean Platelet Volume 10.3 fL (9.4-12.4); Platelet Count 297 K/uL (130-400); RDW Coefficient of Variation 18.6 % (11.5-14.5); RDW Standard Deviation 50.1 fL (36.4-46.3); Red Blood Count 4.07 M/uL (4.70-6.10); White Blood Count 11.22 K/ul (4.8-10.8)
[2023-01-10 06:23] LABS: Calcium 8.9 mg/dl (8.6-10.3); Creatinine Clr Calc Pharmacy 56.9 ml/min; Est GFR (African American) 76.7 ml/min; Est GFR (Non-African American) 66.1 ml/min; Potassium 4.1 mmol/L (3.5-5.1)
[2023-01-10] MEDS: CETIRIZINE HCL 10 MG TABLET PO SCH (07:41)
[2023-01-10] MEDS: hydrALAZINE HCL 25 MG TAB PO SCH ×3 (07:41→21:03)
[2023-01-10] MEDS: carvediloL 6.25 MG TAB PO SCH ×2 (07:42→21:01)
[2023-01-10] MEDS: CYANOCOBALAMIN (B-12) 100 MCG TABLET PO SCH (07:42)
[2023-01-10] MEDS: ROSUVASTATIN CALCIUM 20 MG TAB PO SCH (07:42)
[2023-01-10] MEDS: INSULIN ASPART PER UNIT CHARGE SC SCH ×4 (08:44→22:01)
[2023-01-10] MEDS: LANTUS PER UNIT CHARGE SQ SCH (08:45)
[2023-01-10] MEDS: IRON SUCROSE 200 MG in 0.9 % SODIUM CHLORIDE 100 ML IV SCH (08:45)
--- NOTE | 2023-01-10 12:17 | Hospitalist Progress Note ---
Date of Service January 10, 2023 Assessment & Plan (1) Symptomatic anemia: Plan 72-year-old male with history of A-fib on Coumadin, ischemic cardiomyopathy status post ICD, CAD, DM type II presented ED with GI bleed in setting of supratherapeutic INR GI bleed, suspected UGI in setting of supratherapeutic INR - Status post reversal of Coumadin with Kcentra. S/p 1U PRBC transfusion. No further bleeding noted. Coumadin on hold. On PPI. - Plan for EGD/colonoscopy on Thursday per GI. Bowel prep on Thursday, n.p.o. after midnight afterwards - CBC daily. Hemoglobin has been stable and trending up 7.2->8.6->8.9->9.1 Supratherapeutic INR-status post reversal with vitamin K (with reaction) and K centra. INR 5.8-> 1.3. Acute blood loss anemia- Hb recent baseline seems to be 9 but on presentation 7.2. After PRBC transfusion, currently 7.2->8.6->8.9->9.1 -Microcytic anemia-we will start on IV iron daily. Chronic systolic heart failure secondary to ischemic cardiomyopathy (EF 35%, TTE 2020), patient euvolemic PAF- on coumadin, digoxin, coreg. Coumadin on hold because of GI bleed and for anticipation of GI procedure on Thursday. Tele with NSR. H/o CAD status post stent Hypertension-BP stable. on HLZ, coreg COPD, baseline pulmonary status-no exacerbation, no wheezing. DM 2 insulin requiring, suboptimal control as of recent hemoglobin A1c of 9.2 last December 2022- continue Lantus, sliding scale insulin, will adjust as indicated. Left kidney cancer status post ablation Recent COVID-19 illness, symptoms resolved although COVID swab still positive after first test from December 31, 2022. Asymptomatic. DVT prophylaxis. SCDs, chemoprophylaxis C/I currently due to GI bleed requiring transfusion. Coumadin on hold for GI procedure on Thursday. Full code Ms. Bella Rodriguez, contact #[phone]. Admission and Anticipated Discharge Date Admission Date: January 08, 2023 Subjective Patient was seen and examined at bedside. He feels fine. Denies any bowel movements. No nausea vomiting no chest pain no fever or chills. No lightheadedness or dizziness. Physical Exam Physical Exam: General: Sitting comfortably in chair, not in distress, on room air HEENT: EOMI, ARNOLD, MMM Chest: Clear breath sounds bilaterally, no wheezes or crackles CVS: Regular rate and rhythm, normal heart sounds, no murmur Abdomen: Soft, non tender, not distended, normal bowel sounds Neuro: Awake, alert, conversing well, non focal Extremities: No cyanosis, clubbing or edema Results & Data Results & Data Vital Signs (Past 12 Hours) Vital Signs Temp Pulse Pulse Resp BP Pulse Ox O2 Del Method 01/10/23 10:09 75 01/10/23 07:50 Room Air 01/10/23 07:46 36.6 C 73 16 149/69 H 97 Room Air 01/10/23 02:58 36.3 C L 80 18 142/89 H 96 Room Air 01/10/23 01:06 73 Laboratory Results Short CBC 01/09/23 01/10/23 Range/Units 12:47 05:42 WBC 11.22 H (4.8-10.8) K/ul Hgb 8.9 L 9.1 L (14.0-18.0) g/dl Hct 29.7 L 30.6 L (42.0-52.0) % Plt Count 297 (130-400) K/uL BMP 01/10/23 05:42 Sodium 138 Potassium 4.1 Chloride 105 Carbon Dioxide 23 BUN 15 Creatinine 1.07 Glucose 186 H Calcium 8.9 Medications Administered Current Inpatient Medications Acetaminophen (Acetaminophen 325 Mg Tab) 650 mg PO Q4H PRN PRN Reason: Pain or Fever Stop: 02/07/23 23:15 Carvedilol (Carvedilol 6.25 Mg Tab) 6.25 mg PO AMHS [facility] Stop: 02/07/23 23:15 Last Admin: 01/10/23 07:42 Dose: 6.25 mg Cetirizine HCl (Cetirizine Hcl 10 Mg Tablet) 10 mg PO QAM [facility] Stop: 02/08/23 08:59 Last Admin: 01/10/23 07:41 Dose: 10 mg Cyanocobalamin (Cyanocobalamin (B-12) 100 Mcg Tablet) 100 mcg PO QAM [facility] Stop: 02/08/23 08:59 Last Admin: 01/10/23 07:42 Dose: 100 mcg Dextrose (Dextrose 50% 50 Ml Syringe) 25 - 50 ml IV UD PRN; Protocol PRN Reason: Hypoglycemia Protocol Stop: 02/07/23 23:15 Digoxin (Digoxin 0.25 Mg Tab) 0.25 mg PO HS [facility] Stop: 02/08/23 00:04 Last Admin: 01/09/23 19:59 Dose: 0.25 mg Glucagon (Glucagon For Inj 1 Mg Vial) 1 mg SQ UD PRN; Protocol PRN Reason: Hypoglycemia Protocol Stop: 02/07/23 23:15 Glucose (Glucose 10 Tab/Tube) 4 - 8 tab PO UD PRN; Protocol PRN Reason: Hypoglycemia Treatment Stop: 02/07/23 23:15 Glucose (Glucose 40% Gel 15 Gm Tube) 15 - 30 gm PO UD PRN; Protocol PRN Reason: Hypoglycemia Protocol Stop: 02/07/23 23:15 Hydralazine HCl (Hydralazine Hcl 25 Mg Tab) 25 mg PO TID [facility] Stop: 02/07/23 23:15 Last Admin: 01/10/23 07:41 Dose: 25 mg Hydroxyzine HCl (Hydroxyzine Hcl 25 Mg Tab) 25 mg PO TID PRN PRN Reason: Itching Stop: 02/07/23 23:15 Promethazine HCl 6.25 mg/ (Sodium Chloride) 50.25 mls @ 201 mls/hr IV Q6H PRN PRN Reason: Nausea And Vomiting Stop: 02/07/23 23:15 Iron Sucrose 200 mg/ Sodium (Chloride) 110 mls @ 220 mls/hr IV DAILY [facility] Stop: 01/13/23 08:59 Last Infusion: 01/10/23 09:47 Dose: Infused Pantoprazole Sodium 40 mg/ (Syringe) 10 mls @ 5 mls/min IV BID [facility] Stop: 02/09/23 20:59 Insulin Aspart (Insulin Aspart Per Unit Charge) 0 units SC ACHS [facility] Stop: 02/08/23 16:29 Last Admin: 01/10/23 12:07 Dose: 8 units Insulin Glargine (Lantus Per Unit Charge) 30 units SQ DAILY [facility] Stop: 02/09/23 08:59 Last Admin: 01/10/23 08:45 Dose: 30 units Lisinopril (Lisinopril 2.5 Mg Tab) 2.5 mg PO HS [facility] Stop: 02/07/23 23:15 Last Admin: 01/09/23 20:00 Dose: 2.5 mg Miscellaneous (Carbohydrates For Hypoglycemia ) 15 - 30 gm PO UD PRN PRN Reason: Hypoglycemia Protocol Stop: 02/07/23 23:15 Nitroglycerin (Nitroglycerin Sl 0.4 Mg/Tab Tab) 0.4 mg SL UD PRN PRN Reason: Chest Pain Stop: 02/07/23 23:15 Oxycodone HCl (Oxycodone Hcl Ir 5 Mg Tab (Immediate Release)) 5 mg PO Q4H PRN PRN Reason: Pain Stop: 01/22/23 23:15 Polyethylene Glycol/Electrolytes (Lavage Solution 4000ml) 16 dose PO TODAY@0800 [facility] Stop: 01/11/23 08:01 Rosuvastatin Calcium (Rosuvastatin Calcium 20 Mg Tab) [facility] [place] Stop: 02/08/23 08:59 Last Admin: 01/10/23 07:42 Dose: 40 mg
[2023-01-10] MEDS: DIGOXIN 0.25 MG TAB PO SCH (21:02)
[2023-01-10] MEDS: lisinopril 2.5 MG TAB PO SCH (21:04)
[2023-01-10] MEDS: PANTOprazole 40 MG in SYRINGE 0 ML IV SCH (21:05)
[2023-01-11 07:11] LABS: Hematocrit (blood only) 31.2 % (42.0-52.0); Hemoglobin 9.4 g/dl (14.0-18.0); Mean Corpuscular Hemoglobin 22.9 pg (25.0-34.0); Mean Corpuscular Hgb Conc 30.1 g/dL (32.0-36.0); Mean Corpuscular Volume 75.9 fL (80.0-100.0); Mean Platelet Volume 10.2 fL (9.4-12.4); Platelet Count 327 K/uL (130-400); RDW Coefficient of Variation 19.1 % (11.5-14.5); RDW Standard Deviation 51.6 fL (36.4-46.3); Red Blood Count 4.11 M/uL (4.70-6.10); White Blood Count 10.91 K/ul (4.8-10.8)
[2023-01-11 07:27] LABS: BUN Creatinine Ratio 11.9 (10-20); Calcium 9.1 mg/dl (8.6-10.3); Creatinine Clr Calc Pharmacy 55.9 ml/min; Est GFR (Non-African American) 64.7 ml/min; Potassium 3.9 mmol/L (3.5-5.1)
[2023-01-11] MEDS ORDERED: LAVAGE SOLUTION 4000ML PO SCH (08:00)
[2023-01-11] MEDS: LANTUS PER UNIT CHARGE SQ SCH (08:22)
[2023-01-11] MEDS: CETIRIZINE HCL 10 MG TABLET PO SCH (08:23)
[2023-01-11] MEDS: CYANOCOBALAMIN (B-12) 100 MCG TABLET PO SCH (08:24)
[2023-01-11] MEDS: ROSUVASTATIN CALCIUM 20 MG TAB PO SCH (08:24)
[2023-01-11] MEDS: carvediloL 6.25 MG TAB PO SCH ×2 (08:24→21:59)
[2023-01-11] MEDS: hydrALAZINE HCL 25 MG TAB PO SCH ×3 (08:24→21:58)
[2023-01-11] MEDS: INSULIN ASPART PER UNIT CHARGE SC SCH ×4 (08:24→20:52)
[2023-01-11] MEDS: IRON SUCROSE 200 MG in 0.9 % SODIUM CHLORIDE 100 ML IV SCH (08:25)
[2023-01-11] MEDS: TAMSULOSIN HCL 0.4 MG CAP PO SCH (08:57)
[2023-01-11] MEDS: PANTOprazole 40 MG in SYRINGE 0 ML IV SCH ×2 (08:58→21:58)
--- NOTE | 2023-01-11 11:40 | Hospitalist Progress Note ---
Date of Service January 11, 2023 Assessment & Plan (1) Symptomatic anemia: Plan 72-year-old male with history of A-fib on Coumadin, ischemic cardiomyopathy status post ICD, CAD, DM type II presented ED with GI bleed in setting of supratherapeutic INR GI bleed, suspected UGI in setting of supratherapeutic INR - Status post reversal of Coumadin with Kcentra. S/p 1U PRBC transfusion. No further bleeding noted. Coumadin on hold. On PPI. - Plan for EGD/colonoscopy tomorrow per GI. Bowel prep today, n.p.o. after midnight - CBC daily. Hemoglobin has been stable and trending up 7.2->8.6->8.9->9.1->9.4 Supratherapeutic INR-status post reversal with vitamin K (with reaction) and K centra. INR 5.8-> 1.3. Acute blood loss anemia- Hb recent baseline seems to be 9 but on presentation 7.2. After PRBC transfusion, currently 7.2->8.6->8.9->9.1->9.4 -Microcytic anemia-On IV iron daily D2/4 Chronic systolic heart failure secondary to ischemic cardiomyopathy (EF 35%, TTE 2020), patient euvolemic PAF- on coumadin, digoxin, coreg. Coumadin on hold because of GI bleed and for anticipation of GI procedure on Thursday. Tele with NSR. H/o CAD status post stent Hypertension-BP stable. on HLZ, coreg COPD, baseline pulmonary status-no exacerbation, no wheezing. DM 2 insulin requiring, suboptimal control as of recent hemoglobin A1c of 9.2 last December 2022- continue Lantus, sliding scale insulin, will adjust as indicated. Left kidney cancer status post ablation Recent COVID-19 illness, symptoms resolved although COVID swab still positive after first test from December 31, 2022. Asymptomatic. Patient is good to come out of isolation as it is over 10 days now. DVT prophylaxis. SCDs, chemoprophylaxis C/I currently due to GI bleed requiring transfusion. Coumadin on hold for GI procedure on Thursday. Full code Disposition: EGD/colonoscopy tomorrow Ms. Bella Rodriguez, contact #[phone]. Admission and Anticipated Discharge Date Admission Date: January 08, 2023 Subjective Patient was seen and examined bedside. He had 4 bowel movements yesterday, no blood, not loose. No nausea vomiting abdominal pain. No fever or chills. Complains of difficulty voiding but no dysuria. Getting bowel prep today. Review of Systems Review of Systems: All systems reviewed & are unremarkable except as noted in Subjective Physical Exam Physical Exam: General: Ambulating independently in the room, not in distress, on room air HEENT: EOMI, ARNOLD, MMM Chest: Clear breath sounds bilaterally, no wheezes or crackles CVS: Regular rate and rhythm, normal heart sounds, no murmur Abdomen: Soft, non tender, not distended, normal bowel sounds Neuro: Awake, alert, conversing well, non focal Extremities: No cyanosis, clubbing or edema Results & Data Results & Data Vital Signs (Past 12 Hours) Vital Signs Temp Pulse Pulse Resp BP BP Pulse Ox 01/11/23 08:52 01/11/23 08:00 36.8 C 80 18 149/65 H 99 01/11/23 07:19 78 01/11/23 03:49 36.5 C 82 18 142/68 H 96 01/11/23 00:47 85 O2 Del Method 01/11/23 08:52 Room Air 01/11/23 08:00 Room Air 01/11/23 07:19 01/11/23 03:49 Room Air 01/11/23 00:47 Laboratory Results Short CBC 01/11/23 Range/Units 06:41 WBC 10.91 H (4.8-10.8) K/ul Hgb 9.4 L (14.0-18.0) g/dl Hct 31.2 L (42.0-52.0) % Plt Count 327 (130-400) K/uL BMP 01/11/23 06:41 Sodium 138 Potassium 3.9 Chloride 104 Carbon Dioxide 24 BUN 13 Creatinine 1.09 Glucose 223 H Calcium 9.1 Medications Administered Current Inpatient Medications Acetaminophen (Acetaminophen 325 Mg Tab) 650 mg PO Q4H PRN PRN Reason: Pain or Fever Stop: 02/07/23 23:15 Carvedilol (Carvedilol 6.25 Mg Tab) 6.25 mg PO AMHS [facility] Stop: 02/07/23 23:15 Last Admin: 01/11/23 08:24 Dose: 6.25 mg Cetirizine HCl (Cetirizine Hcl 10 Mg Tablet) 10 mg PO QAM [facility] Stop: 02/08/23 08:59 Last Admin: 01/11/23 08:23 Dose: 10 mg Cyanocobalamin (Cyanocobalamin (B-12) 100 Mcg Tablet) 100 mcg PO QAM [facility] Stop: 02/08/23 08:59 Last Admin: 01/11/23 08:24 Dose: 100 mcg Dextrose (Dextrose 50% 50 Ml Syringe) 25 - 50 ml IV UD PRN; Protocol PRN Reason: Hypoglycemia Protocol Stop: 02/07/23 23:15 Digoxin (Digoxin 0.25 Mg Tab) 0.25 mg PO HS [facility] Stop: 02/08/23 00:04 Last Admin: 01/10/23 21:02 Dose: 0.25 mg Glucagon (Glucagon For Inj 1 Mg Vial) 1 mg SQ UD PRN; Protocol PRN Reason: Hypoglycemia Protocol Stop: 02/07/23 23:15 Glucose (Glucose 10 Tab/Tube) 4 - 8 tab PO UD PRN; Protocol PRN Reason: Hypoglycemia Treatment Stop: 02/07/23 23:15 Glucose (Glucose 40% Gel 15 Gm Tube) 15 - 30 gm PO UD PRN; Protocol PRN Reason: Hypoglycemia Protocol Stop: 02/07/23 23:15 Hydralazine HCl (Hydralazine Hcl 25 Mg Tab) 25 mg PO TID [facility] Stop: 02/07/23 23:15 Last Admin: 01/11/23 08:24 Dose: 25 mg Hydroxyzine HCl (Hydroxyzine Hcl 25 Mg Tab) 25 mg PO TID PRN PRN Reason: Itching Stop: 02/07/23 23:15 Promethazine HCl 6.25 mg/ (Sodium Chloride) 50.25 mls @ 201 mls/hr IV Q6H PRN PRN Reason: Nausea And Vomiting Stop: 02/07/23 23:15 Iron Sucrose 200 mg/ Sodium (Chloride) 110 mls @ 220 mls/hr IV DAILY [facility] Stop: 01/13/23 08:59 Last Infusion: 01/11/23 09:01 Dose: Infused Pantoprazole Sodium 40 mg/ (Syringe) 10 mls @ 5 mls/min IV BID [facility] Stop: 02/09/23 20:59 Last Admin: 01/11/23 08:58 Dose: 5 mls/min Insulin Aspart (Insulin Aspart Per Unit Charge) 0 units SC ACHS [facility] Stop: 02/08/23 16:29 Last Admin: 01/11/23 08:24 Dose: 8 units Insulin Glargine (Lantus Per Unit Charge) 30 units SQ DAILY [facility] Stop: 02/09/23 08:59 Last Admin: 01/11/23 08:22 Dose: 30 units Lisinopril (Lisinopril 2.5 Mg Tab) 2.5 mg PO HS [facility] Stop: 02/07/23 23:15 Last Admin: 01/10/23 21:04 Dose: 2.5 mg Miscellaneous (Carbohydrates For Hypoglycemia ) 15 - 30 gm PO UD PRN PRN Reason: Hypoglycemia Protocol Stop: 02/07/23 23:15 Nitroglycerin (Nitroglycerin Sl 0.4 Mg/Tab Tab) 0.4 mg SL UD PRN PRN Reason: Chest Pain Stop: 02/07/23 23:15 Oxycodone HCl (Oxycodone Hcl Ir 5 Mg Tab (Immediate Release)) 5 mg PO Q4H PRN PRN Reason: Pain Stop: 01/22/23 23:15 Rosuvastatin Calcium (Rosuvastatin Calcium 20 Mg Tab) 40 mg PO QAM [facility] Stop: 02/08/23 08:59 Last Admin: 01/11/23 08:24 Dose: 40 mg Tamsulosin HCl (Tamsulosin Hcl 0.4 Mg Cap) 0.4 mg PO QAM [facility] Stop: 02/10/23 08:59 Last Admin: 01/11/23 08:57 Dose: 0.4 mg
[2023-01-11] MEDS: lisinopril 2.5 MG TAB PO SCH (21:58)
[2023-01-11] MEDS: DIGOXIN 0.25 MG TAB PO SCH (21:59)
[2023-01-12 06:57] LABS: Hematocrit (blood only) 27.6 % (42.0-52.0); Hemoglobin 8.4 g/dl (14.0-18.0); Mean Corpuscular Hemoglobin 22.8 pg (25.0-34.0); Mean Corpuscular Hgb Conc 30.4 g/dL (32.0-36.0); Mean Corpuscular Volume 74.8 fL (80.0-100.0); Mean Platelet Volume 10.4 fL (9.4-12.4); Platelet Count 309 K/uL (130-400); RDW Coefficient of Variation 19.8 % (11.5-14.5); RDW Standard Deviation 51.7 fL (36.4-46.3); Red Blood Count 3.69 M/uL (4.70-6.10); White Blood Count 9.35 K/ul (4.8-10.8)
[2023-01-12 07:16] LABS: Calcium 8.6 mg/dl (8.6-10.3); Creatinine Clr Calc Pharmacy 66.9 ml/min; Est GFR (African American) 93.2 ml/min; Est GFR (Non-African American) 80.4 ml/min; Potassium 3.4 mmol/L (3.5-5.1)
[2023-01-12] MEDS ORDERED: POTASSIUM CHLORIDE CRTAB 20 MEQ TABCR PO ONE (07:33)
[2023-01-12 07:38] LABS: INR 1.1 (0.9-1.1); Prothrombin Time 11.7 Seconds (9.0-12.0)
[2023-01-12] MEDS: TAMSULOSIN HCL 0.4 MG CAP PO SCH (07:54)
[2023-01-12] MEDS: CETIRIZINE HCL 10 MG TABLET PO SCH (07:55)
[2023-01-12] MEDS: carvediloL 6.25 MG TAB PO SCH (07:55)
[2023-01-12] MEDS: CYANOCOBALAMIN (B-12) 100 MCG TABLET PO SCH (07:56)
[2023-01-12] MEDS: ROSUVASTATIN CALCIUM 20 MG TAB PO SCH (07:56)
[2023-01-12] MEDS: IRON SUCROSE 200 MG in 0.9 % SODIUM CHLORIDE 100 ML IV SCH (07:57)
[2023-01-12] MEDS: PANTOprazole 40 MG in SYRINGE 0 ML IV SCH (07:57)
[2023-01-12] MEDS: hydrALAZINE HCL 25 MG TAB PO SCH (07:57)
[2023-01-12] MEDS: INSULIN ASPART PER UNIT CHARGE SC SCH ×2 (07:57→12:00)
[2023-01-12] MEDS ORDERED: ONDANSETRON INJ 2 MG/ML 2 ML VIAL IV PRN (08:19)
[2023-01-12] MEDS ORDERED: ePHEDrine sulfate 50 MG/ML AMP IV PRN (08:19)
[2023-01-12] MEDS ORDERED: ATROPINE SULFATE 0.1 MG/ML 10ML SYR IV PRN (08:19)
--- NOTE | 2023-01-12 08:19 | Anesthesiology Consultation ---
Date of Service January 12, 2023 Assessment & Plan ASA ASA3 Proposed Anesthesia Anesthesia Type: MAC History Surgery Operation Date: 01/12/23 16:30 Proposed Procedures p Colonoscopy EGD Dr. Stone Ritter MD Height/Weight Height: 5 ft 9 in Weight: 76.2 kg Allergies Allergy/AdvReac Type Severity Reaction Status Date / Time house dust mite Allergy Severe facial Verified 01/08/23 19:49 swelling venom-honey bee Allergy Severe Anaphylaxis Verified 01/08/23 19:49 pioglitazone Allergy Intermediate severe Verified 01/08/23 19:49 headaches phytonadione (vitamin K1) AdvReac Intermediate Chest Pain Verified 01/08/23 23:04 Medications Home Medications Medication Instructions Recorded Confirmed Last Taken carvedilol 12.5 mg tablet 6.25 mg PO AMHS 11/25/18 01/08/23 01/08/23 digoxin 250 mcg (0.25 mg) tablet 250 mcg PO HS 11/25/18 01/08/23 04/16/22 epinephrine 0.3 mg/0.3 mL 0.3 mg IM UD PRN Anaphylaxis 11/25/18 01/08/23 Unknown injection, auto-injector hydralazine 25 mg tablet 25 mg PO TID 11/25/18 01/08/23 04/17/22 insulin aspart U-100 100 unit/mL See Rx Instructions .Route .COMPLEX 11/26/18 01/08/23 04/16/22 subcutaneous solution (Novolog U-100 Insulin aspart) insulin glargine 100 unit/mL 60 unit subcut QAM 11/26/18 01/08/23 04/17/22 subcutaneous solution (Lantus U-100 Insulin) isosorbide mononitrate 60 mg 60 mg PO QAM 11/26/18 01/08/23 04/17/22 tablet,extended release 24 hr lisinopril 2.5 mg tablet 2.5 mg PO HS 11/26/18 01/08/23 04/16/22 metformin 1,000 mg tablet 1,000 mg PO BID 11/26/18 01/08/23 04/17/22 nitroglycerin 0.4 mg sublingual 0.4 mg sublingual UD PRN Chest Pain 11/26/18 01/08/23 06/27/20 tablet (Nitrostat) warfarin 5 mg tablet 5 mg PO PM 11/26/18 01/08/23 04/16/22 cetirizine 10 mg tablet (Zyrtec) 10 mg PO QAM 02/29/20 01/08/23 04/17/22 empagliflozin 25 mg tablet 25 mg PO QAM 02/29/20 01/08/23 04/17/22 aspirin 81 mg tablet,delayed 81 mg PO QAM 09/20/20 01/08/23 04/17/22 release hydrocodone 5 mg-acetaminophen 325 1 tab PO Q4 PRN Pain 04/17/22 01/08/23 Unknown mg tablet rosuvastatin 40 mg tablet 40 mg PO QAM 04/17/22 01/08/23 Unknown cyanocobalamin (vitamin B-12) 100 100 mcg PO QAM 12/31/22 01/08/23 01/08/23 mcg tablet ferrous sulfate 325 mg (65 mg 325 mg PO Q OTHER DAY 12/31/22 01/08/23 01/08/23 iron) tablet (Iron (ferrous sulfate)) omega-3 acid ethyl esters 1 gram 2 cap PO AMPM 12/31/22 01/08/23 01/08/23 capsule pantoprazole 40 mg tablet,delayed 40 mg PO QAM 12/31/22 01/08/23 01/08/23 release hydroxyzine HCl 25 mg tablet 25 mg PO TID PRN Itching 01/08/23 01/08/23 Unknown tamsulosin 0.4 mg capsule 0.4 mg PO QPM 01/08/23 01/08/23 Unknown Active Medications Generic Name Dose Route Start Last Admin Trade Name Marysol PRN Reason Stop Dose Admin Carvedilol 6.25 mg 01/08/23 23:16 01/12/23 07:55 Carvedilol 6.25 Mg Tab PO 02/07/23 23:15 6.25 mg AMHS EMELYN Administration Cetirizine HCl 10 mg 01/09/23 09:00 01/12/23 07:55 Cetirizine Hcl 10 Mg Tablet PO 02/08/23 08:59 10 mg QAM EMELYN Administration Cyanocobalamin 100 mcg 01/09/23 09:00 01/12/23 07:56 Cyanocobalamin (B-12) 100 Mcg Tablet PO 02/08/23 08:59 100 mcg QAM EMELYN Administration Digoxin 0.25 mg 01/09/23 00:05 01/11/23 21:59 Digoxin 0.25 Mg Tab PO 02/08/23 00:04 0.25 mg HS EMELYN Administration Hydralazine HCl 25 mg 01/08/23 23:16 01/12/23 07:57 Hydralazine Hcl 25 Mg Tab PO 02/07/23 23:15 25 mg TID EMELYN Administration Iron Sucrose 200 mg/ Sodium 110 mls @ 220 mls/hr 01/10/23 09:00 01/12/23 07:57 Chloride IV 01/13/23 08:59 220 mls/hr DAILY EMELYN Administration Pantoprazole Sodium 40 mg/ 10 mls @ 5 mls/min 01/10/23 21:00 01/12/23 07:57 Syringe IV 02/09/23 20:59 5 mls/min BID EMELYN Administration Insulin Aspart 0 units 01/09/23 16:30 01/12/23 07:57 Insulin Aspart Per Unit Charge SC 02/08/23 16:29 Not Given ACHS EMELYN Insulin Glargine 30 units 01/10/23 09:00 01/11/23 08:22 Lantus Per Unit Charge SQ 02/09/23 08:59 30 units DAILY EMELYN Administration Lisinopril 2.5 mg 01/08/23 23:16 01/11/23 21:58 Lisinopril 2.5 Mg Tab PO 02/07/23 23:15 2.5 mg HS EMELYN Administration Rosuvastatin Calcium 40 mg 01/09/23 09:00 01/12/23 07:56 Rosuvastatin Calcium 20 Mg Tab PO 02/08/23 08:59 40 mg QAM EMELYN Administration Tamsulosin HCl 0.4 mg 01/11/23 09:00 01/12/23 07:54 Tamsulosin Hcl 0.4 Mg Cap PO 02/10/23 08:59 0.4 mg QAM EMELYN Administration Past Medical History Medical History Anemia BPH (benign prostatic hyperplasia) CAD (coronary artery disease) s/p PCI of Cx 2010; chronic LAD occlusion with recannulation Diabetes mellitus, type 2 Emphysema of lung Heart attack 1991/2004/2010--follows with Dr. Maldonado Hyperlipidemia Hypertension ICD (implantable cardioverter-defibrillator) in place originially placed 2010--medtronic @ [facility] [place]. replacement with dual chamber @ [facility] 04/17/2020 last checked few mos ago with Dr. 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 On anticoagulant therapy warfarin daily Paroxysmal A-fib On digoxin, warfarin, coreg Past Family History Family History Other Cancer Heart disease No family history of adverse response to anesthesia No family history of bleeding disorder No pertinent family history Past Surgical History Surgical History History of cardiac cath x2--- x1 stent @ [facility] [place] History of colonoscopy with polypectomy last 03/08/20 History of esophagogastroduodenoscopy (EGD) last 03/08/20 History of heart artery stent (1) 2010 @ [facility] [place] History of tonsillectomy and adenoidectomy History of tooth extraction all teeth Social History Smoking Status: Former smoker tobacco type: cigarettes Smoking cigarettes per day: 2 Packs Hx Alcohol Use: No Hx Substance Use: No substance use type: does not use Review of Systems Respiratory: no problem reported Cardiovascular: no problem reported Physical Exam Vital Signs Last Vital Signs Temp 36.6 C 01/12/23 07:13 Pulse 69 01/12/23 07:13 Resp 18 01/12/23 07:13 BP 134/65 01/12/23 07:13 Pulse Ox 96 01/12/23 07:13 O2 Del Method Room Air 01/12/23 07:13 Constitutional WD/WN, vitals as above Eyes PERRL, conjunctivae normal, anicteric sclerae ENMT external ear and nose normal, oropharynx normal Neck trachea midline, no thyromegaly normal visual inspection Respiratory normal respiratory effort, lungs clear to auscultation normal respiratory effort; no respiratory distress Auscultation: lungs clear to auscultation bilaterally Cardiovascular RRR, no murmur, no edema Rate/Rhythm: regular rate and regular rhythm Gastrointestinal (Abdomen) normal bowel sounds, soft, nontender, no hepatosplenomegaly Musculoskeletal no cyanosis or clubbing, extremities motor strength 5/5 Skin no rashes, warm and dry Neurologic PERRL, EOMI, accommodation nl, no face palsy, no dysarthria Psychiatric A+Ox3, euthymic affect Orientation: alert and oriented x 3 Lymphatic no cervical or axillary lymphadenopathy Testing Laboratory Results 01/12/23 06:11 01/12/23 06:11 PT 11.7 Seconds (9.0-12.0) 01/12/23 06:11 INR 1.1 (0.9-1.1) 01/12/23 06:11 Blood Type A Positive 01/08/23 18:58 Antibody Screen NEGATIVE 01/08/23 18:58 01/12/23 01/11/23 07:23 20:47 POC Glucose 148 H 105 H
--- NOTE | 2023-01-12 08:52 | History & Physical Bridge Note ---
Date of Service January 12, 2023 History & Physical Bridge Note I have examined the patient, reviewed the History & Physical and in the interval since the performance of the History & Physical I have noted the following changes of clinical significance: no changes noted Supervising Physician Co-Signing Physician Notes Egd/colon for evaluation of anemia.
[2023-01-12] MEDS ORDERED: PROPOFOL IV EMULSION 10 MG/ML 20 ML VIAL IV ONE ×2 (08:58→09:24)
[2023-01-12] MEDS ORDERED: LIDOCAINE 2% MPF LOCAL 5 ML VIAL ONE (08:58)
--- NOTE | 2023-01-12 09:34 | GI REPORT ---
Patient Name: Keith Bradley Procedure Date: 01/12/2023 9:03 AM Date of : 1945 Admit Type: Inpatient Age: 77 Gender: Male Attending MD: Umm Ritter M.d., Procedure: Upper GI endoscopy Providers: Umm Ritter M.d. Referring MD: [facility] Indications: Anemia Medicines: See the Anesthesia note for documentation of the administered medications Complications: No immediate complications. Estimated Blood Loss: Estimated blood loss: none. Procedure: Pre-Anesthesia Assessment: - Patient identification and proposed procedure were verified prior to the procedure by the physician, the nurse and the anesthesiologist. The procedure was verified in the pre-procedure area. - Prior to the procedure, a History and Physical was performed, and patient medications, allergies and sensitivities were reviewed. The patient's tolerance of previous anesthesia was reviewed. - The risks and benefits of the procedure and the sedation options and risks were discussed with the patient. All questions were answered and informed consent was obtained. After obtaining informed consent, the endoscope was passed under direct vision. Throughout the procedure, the patient's blood pressure, pulse, and oxygen saturations were monitored continuously. The Endoscope was introduced through the mouth, and advanced to the second part of duodenum. The upper GI endoscopy was accomplished without difficulty. The patient tolerated the procedure well. Findings: The examined esophagus appeared normal. The Z-line appeared regular. The examined stomach appeared normal. Biopsies were taken with a cold forceps for Helicobacter pylori testing. The pathology specimen was placed into Bottle A. Verification of patient identification for the specimen was done by the physician and nurse using the patient's name and medical record number. The duodenal bulb and second portion of the duodenum appeared normal - biliary fluid was present.. Impression: - Normal esophagus. - Z-line regular. - Normal stomach. Biopsied. - Normal duodenal bulb and second portion of the duodenum. Recommendation: - Await pathology results. - Proceed to colonoscopy. Keely Kan M.d. 01/12/2023 9:33:20 AM This report has been signed electronically. Note Initiated On: 01/12/2023 9:03 AM Number of Addenda: 0 I attest to the content of the Intraoperative Record and orders documented therein, exceptions below {[id number]}
--- NOTE | 2023-01-12 09:37 | GI REPORT ---
Patient Name: Keith Bradley Procedure Date: 01/12/2023 9:10 AM Date of : 1945 Admit Type: Inpatient Age: 77 Gender: Male Attending MD: Umm Ritter M.d., Procedure: Colonoscopy Providers: Umm Ritter M.d. Referring MD: [facility] Indications: Anemia Medicines: See the Anesthesia note for documentation of the administered medications Complications: No immediate complications. Estimated Blood Loss: Estimated blood loss: none. Procedure: Pre-Anesthesia Assessment: - Patient identification and proposed procedure were verified prior to the procedure by the physician, the nurse and the anesthesiologist. The procedure was verified in the pre-procedure area. - Prior to the procedure, a History and Physical was performed, and patient medications, allergies and sensitivities were reviewed. The patient's tolerance of previous anesthesia was reviewed. - The risks and benefits of the procedure and the sedation options and risks were discussed with the patient. All questions were answered and informed consent was obtained. After I obtained informed consent, the scope was passed under direct vision. Throughout the procedure, the patient's blood pressure, pulse, and oxygen saturations were monitored continuously. The Colonoscope was introduced through the anus and advanced to the cecum, identified by appendiceal orifice and ileocecal valve. The colonoscopy was performed without difficulty. The patient tolerated the procedure well. The quality of the bowel preparation was fair. Findings: The examined colon appeared normal. Scattered small-mouthed diverticula were found in the sigmoid colon. Internal hemorrhoids were found during retroflexion. Impression: - Preparation of the colon was fair. - The examined colon appeared normal. - Sigmoid diverticulosis. - Internal hemorrhoids. Recommendation: - Return to the floor. Keely Kan M.d. 01/12/2023 9:36:28 AM This report has been signed electronically. Note Initiated On: 01/12/2023 9:10 AM Number of Addenda: 0 I attest to the content of the Intraoperative Record and orders documented therein, exceptions below {[id number]}
[2023-01-12] MEDS: LANTUS PER UNIT CHARGE SQ SCH (10:40)
--- NOTE | 2023-01-12 12:53 | Anesthesiology Progress Note ---
Date of Service January 12, 2023 Anesthesia Post Procedure Vital Signs Vital Signs: Temp Pulse Pulse Resp BP BP Pulse Ox 01/12/23 11:04 36.5 C 69 18 140/54 L 69 L 01/12/23 10:00 72 16 117/58 L 97 01/12/23 09:45 73 16 120/47 L 97 01/12/23 09:30 73 18 85/55 L 99 01/12/23 09:03 76 01/12/23 08:42 36.5 C 82 16 143/66 H 98 01/12/23 08:37 01/12/23 07:13 36.6 C 69 18 134/65 96 01/12/23 03:35 36.7 C 80 16 115/47 L 96 01/12/23 00:00 76 01/11/23 22:24 36.5 C 75 18 154/89 H 99 01/11/23 21:59 75 01/11/23 19:48 36.4 C L 75 18 129/61 99 01/11/23 15:43 74 01/11/23 15:36 36.6 C 67 18 129/63 98 O2 Del Method 01/12/23 11:04 Room Air 01/12/23 10:00 Room Air 01/12/23 09:45 Room Air 01/12/23 09:30 Room Air 01/12/23 09:03 01/12/23 08:42 Room Air 01/12/23 08:37 Room Air 01/12/23 07:13 Room Air 01/12/23 03:35 Room Air 01/12/23 00:00 01/11/23 22:24 Room Air 01/11/23 21:59 01/11/23 19:48 Room Air 01/11/23 15:43 01/11/23 15:36 Room Air Pain Intensity Bilateral Head: Pain Intensity: 7 Transfer of Care Handoff Completed per policy Notes Mental Status: alert / awake / arousable Patient Amnestic to Procedure: Yes Nausea / Vomiting: adequately controlled Pain: adequately controlled Airway Patency, RR, SpO2: stable & adequate BP & HR: stable & adequate Hydration State: stable & adequate Anesthetic Complications: no major complications apparent and Pt Satisfied with anesthetic care
--- NOTE | 2023-01-12 13:36 | Discharge Summary ---
Date of Service January 12, 2023 Admission HPI Per Admitting Provider History obtained from patient, family, and records. Medical history significant for chronic systolic heart failure secondary to ischemic cardiomyopathy (EF 35%, TTE 2020), SSS status post PPMon Coumadin, CAD status post stent, valvular heart disease (mild MR/TR), hypertension, hyperlipidemia, COPD, DM 2 insulin requiring, left kidney cancer status post ablation, chronic anemia (baseline hemoglobin of 9), past tobacco abuse Last confinement April 2022 for UGIB in the setting of Coumadin coagulopathy. Outpatient endoscopy recommended by Ciro ARREGUIN resumed on discharge. Patient unable to comply with outpatient endoscopy as instructed as per daughter due to hypoglycemia concerns if patient were not to eat prior to procedure. Last ER visit last week for COVID-19 illness presenting with cough symptoms, clear sputum, weakness without chest pain/unusual SOB symptoms. Patient completed COVID-19 vaccination. Patient discharged home from the ER as per request. COVID-19 symptoms resolved at home. PCP follow-up scheduled for tomorrow. 2 days ago, patient noted worsening shortness of breath on exertion more than usual. No headache, no chest pain, no abdominal pain. Patient unaware of stool color as he does not look at his bowel movements in the toilet. Patient went for routine outpatient blood work at the [facility] today. Hemoglobin noted to be 7, INR noted to be 5. Patient directed to ER for evaluation. Heme positive melanotic stool documented at the ER. 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 Admission Exam Per Admitting Provider GENERAL: pleasant, restless (chronic as per daughter), no respiratory distress SKIN: Pallor, warm HEENT: Alopecia, pale palpebral conjunctivae, no ptosis, dry buccal mucosa NECK : Supple, no tenderness CHEST : Decreased breath sounds, no tenderness HEART : RRR, no obvious murmurs ABDOMEN: Some distention, nontender EXTREMITIES : No LE swelling/tenderness, no other conspicuous deformities noted NEUROLOGIC : Coherent, no facial asymmetry, gait and stance not assessed Principal Diagnosis GI bleeding with anemia insetting of supratherapeutic INR on Coumadin, paroxysmal atrial fibrillation Discharge Exam General: Sitting comfortably in chair, dressed up to leave the hospital, on room air HEENT: EOMI, ARNOLD, MMM Chest: Clear breath sounds bilaterally, no wheezes or crackles CVS: Regular rate and rhythm, normal heart sounds, no murmur Abdomen: Soft, non tender, not distended, normal bowel sounds Neuro: Awake, alert, conversing well, non focal Extremities: No cyanosis, clubbing or edema Discharge Data Allergies Allergy/AdvReac Type Severity Reaction Status Date / Time house dust mite Allergy Severe facial Verified 01/12/23 08:41 swelling venom-honey bee Allergy Severe Anaphylaxis Verified 01/12/23 08:41 pioglitazone Allergy Intermediate severe Verified 01/12/23 08:41 headaches phytonadione (vitamin K1) AdvReac Intermediate Chest Pain Verified 01/12/23 08:41 Consultations 01/08/23 19:09 ED Decision to Admit Stat 01/08/23 23:16 Consult Gastroenterology Routine Procedures Performed Operation Date: 01/12/23 16:30 Actual Procedures p EGD Biopsy Cytology - Umm Ritter MD s Colonoscopy - Umm Ritter MD EGD revealed normal esophagus, regular Z-line, normal stomach biopsied, normal duodenal bulb and second portion of duodenum Colonoscopy results Findings: The examined colon appeared normal. Scattered small-mouthed diverticula were found in the sigmoid colon. Internal hemorrhoids were found during retroflexion. Impression: - Preparation of the colon was fair. - The examined colon appeared normal. - Sigmoid diverticulosis. - Internal hemorrhoids. Ordered Studies Laboratory Results WBC 9.35 K/ul (4.8-10.8) 01/12/23 06:11 RBC 3.69 M/uL (4.70-6.10) L 01/12/23 06:11 Hgb 8.4 g/dl (14.0-18.0) L 01/12/23 06:11 Hct 27.6 % (42.0-52.0) L 01/12/23 06:11 MCV 74.8 fL (80.0-100.0) L 01/12/23 06:11 MCH 22.8 pg (25.0-34.0) L 01/12/23 06:11 MCHC 30.4 g/dL (32.0-36.0) L 01/12/23 06:11 RDW Std Deviation 51.7 fL (36.4-46.3) H 01/12/23 06:11 RDW Coeff of Shasha 19.8 % (11.5-14.5) H 01/12/23 06:11 Plt Count 309 K/uL (130-400) 01/12/23 06:11 MPV 10.4 fL (9.4-12.4) 01/12/23 06:11 Immature Gran % (Auto) 0.4 % 01/09/23 05:29 Neut % (Auto) 63.8 % 01/09/23 05:29 Lymph % (Auto) 23.8 % 01/09/23 05:29 Taliaferro % (Auto) 9.3 % 01/09/23 05:29 Eos % (Auto) 2.3 % 01/09/23 05:29 Baso % (Auto) 0.4 % 01/09/23 05:29 Neut # (Auto) 5.76 K/uL (1.40-6.50) 01/09/23 05:29 Lymph # (Auto) 2.15 K/uL (1.2-3.4) 01/09/23 05:29 Taliaferro # (Auto) 0.84 K/uL (0.11-0.59) H 01/09/23 05:29 Eos # (Auto) 0.21 K/uL (0-0.50) 01/09/23 05:29 Baso # (Auto) 0.04 K/uL (0-0.2) 01/09/23 05:29 Immature Gran # (Auto) 0.04 K/uL (0.01-0.20) 01/09/23 05:29 Hypochromasia Present 01/08/23 17:35 Ovalocytes 1+ 01/08/23 17:35 PT 11.7 Seconds (9.0-12.0) 01/12/23 06:11 INR 1.1 (0.9-1.1) 01/12/23 06:11 Sodium 140 mmol/L (136-145) 01/12/23 06:11 Potassium 3.4 mmol/L (3.5-5.1) L 01/12/23 06:11 Chloride 106 mmol/L (98-107) 01/12/23 06:11 Carbon Dioxide 25 mmol/L (21-32) 01/12/23 06:11 Anion Gap 9 (3-11) 01/12/23 06:11 BUN 10 mg/dl (6-23) 01/12/23 06:11 Creatinine 0.91 mg/dl (0.6-1.4) 01/12/23 06:11 Est Cr Clr Drug Dosing 66.9 ml/min 01/12/23 06:11 Est GFR ( Amer) 93.2 ml/min 01/12/23 06:11 Est GFR (Non-Af Amer) 80.4 ml/min 01/12/23 06:11 BUN/Creatinine Ratio 11.0 (10-20) 01/12/23 06:11 Glucose 137 mg/dl (70-99(Fasting)) H 01/12/23 06:11 POC Glucose 176 mg/dl (70-99) H 01/12/23 11:24 Calcium 8.6 mg/dl (8.6-10.3) 01/12/23 06:11 Magnesium 2.0 mg/dl (1.7-2.4) 01/08/23 17:35 Total Bilirubin 0.4 mg/dl (0.2-1.0) 01/08/23 17:35 AST 13 U/L (13-39) 01/08/23 17:35 ALT 11 U/L (7-52) 01/08/23 17:35 Alkaline Phosphatase 58 U/L (34-104) 01/08/23 17:35 Troponin I High Sens 30.5 pg/ml (0-20) H 01/09/23 05:29 Total Protein 7.0 gm/dl (6.0-8.3) 01/08/23 17:35 Albumin 3.9 gm/dl (3.4-5.0) 01/08/23 17:35 Globulin 3.1 gm/dl (2.5-4.0) 01/08/23 17:35 Albumin/Globulin Ratio 1.3 (0.9-2) 01/08/23 17:35 Lipase 42 U/L (11-82) 01/08/23 17:35 Digoxin 1.3 ng/ml (0.8-2.0) 01/08/23 20:21 SARS-CoV-2, RNA, NAAT POSITIVE (NEGATIVE) A* 01/08/23 19:47 Blood Type A Positive 01/08/23 18:58 Antibody Screen NEGATIVE 01/08/23 18:58 Crossmatch See Detail 01/08/23 18:58 Impressions Chest X-Ray 01/08/23 17:17 XR chest 1V portable CLINICAL HISTORY: Shortness of breath. COMPARISON STUDY: Chest radiograph and chest CT December 31, 2022. FINDINGS: No pneumothorax or effusion is present. A left subclavian pacer/AICD is in place. Cardiomegaly is unchanged. No evidence for pulmonary edema. No consolidation to suggest pneumonia. There has been no change in appearance of the chest. IMPRESSION: No acute cardiopulmonary findings. ACT 112: Negative or not required by law. Electronically signed by: Eladio Galaviz M.D. 01/08/2023 5:36 PM Hospital Course (1) Symptomatic anemia: Plan 72-year-old male with history of A-fib on Coumadin, ischemic cardiomyopathy status post ICD, CAD, DM type II presented ED with GI bleed in setting of supratherapeutic INR GI bleed in setting of supratherapeutic INR - Status post reversal of Coumadin with Kcentra. S/p 1U PRBC transfusion. No further bleeding noted. Coumadin on hold. On PPI. - Status post EGD and colonoscopy today with no bleeding source identified- has diverticuli- possible diverticular bleed. F/u on Stomach biopsy results. Supratherapeutic INR-status post reversal with vitamin K (with reaction) and K centra. INR 5.8-> 1.3. Acute blood loss anemia- Hb recent baseline seems to be 9 but on presentation 7.2. After PRBC transfusion, currently 7.2->8.6->8.9->9.1->9.4 -Microcytic anemia-On IV iron daily D3. Being discharged on oral iron supplementation Chronic systolic heart failure secondary to ischemic cardiomyopathy (EF 35%, TTE 2020), patient euvolemic PAF- On digoxin, coreg. Currently in sinus rhythm. Per patient, he is stopping Coumadin and starting Eliquis per cardiology. He has pills at home. H/o CAD status post stent Hypertension-BP stable. on HLZ, coreg COPD, baseline pulmonary status-no exacerbation, no wheezing. DM 2 on insulin- continue home insulin Left kidney cancer status post ablation Recent COVID-19 illness, symptoms resolved although COVID swab still positive after first test from December 31, 2022. Asymptomatic. Out of isolation Total Time Total Time Spent Total Time Spent (In Minutes): 45 Discharge Plan Discharge Items Patient Disposition: Home - Self-Care Reason For Visit: ANEMIA, GI BLEED Discharge Diagnosis: GI bleed in setting of supratherapeutic INR, COVID 19 positive Activity: Resume your previous activity Non-emergency contact: Primary Care Provider and Casserole Preparer Call non-emergency contact if: you have any medication questions, your symptoms worsen and your pain is concerning for you Follow-up/Referrals: Shreyas Miller MD [Primary Care Provider] - (Date & Time 01/16/2023 11:20 AM Provider Shreyas Miller MD Department Merged With [facility] ) Diet: Carb Consistent or DM2 and Heart Healthy Addtl Attending Provider Instructions: Your bleeding was in setting of high INR. It is now resolved. No bleeding source was identified. Follow up with GI. Continue iron supplementation Follow up on H pylori results Pending Studies at Discharge: Yes Studies:: H pylori biopsy Stand-Alone Forms: My [facility] Joyce Zelgor, Smoking Cessation Medications and DC Order Prescriptions: Continued carvedilol 12.5 mg Tablet 6.25 mg PO AMHS digoxin 250 mcg Tablet 250 mcg PO HS epinephrine 0.3 mg/0.3 mL Auto-Injector 0.3 mg IM UD PRN (Reason: Anaphylaxis) Rx Instructions: BEE STINGS hydralazine 25 mg Tablet 25 mg PO TID insulin aspart U-100 [Novolog U-100 Insulin aspart] 100 unit/mL Solution See Rx Instructions .ROUTE .COMPLEX Rx Instructions: Take 10 units in the morning, 32 units with lunch, 26 units with dinner and 8 units at bedtime. insulin glargine [Lantus U-100 Insulin] 100 unit/mL Solution 60 unit SUBCUT QAM isosorbide mononitrate 60 mg Tablet Extended Release 24 Hr 60 mg PO QAM lisinopril 2.5 mg Tablet 2.5 mg PO HS metformin 1,000 mg Tablet 1,000 mg PO BID nitroglycerin [Nitrostat] 0.4 mg Tablet, Sublingual 0.4 mg Sublingual UD PRN (Reason: Chest Pain) Rx Instructions: NEEDED FOR CHEST PAIN: ONE TABLET UNDER THE TONGUE EVERY 5 MINUTES UP TO 3 DOSES. cetirizine [Zyrtec] 10 mg Tablet 10 mg PO QAM empagliflozin 25 mg Tablet 25 mg PO QAM aspirin 81 mg Tablet,Delayed Release (Dr/Ec) 81 mg PO QAM hydrocodone-acetaminophen 5-325 mg Tablet 1 tab PO Q4 PRN (Reason: Pain) rosuvastatin 40 mg Tablet 40 mg PO QAM cyanocobalamin (vitamin B-12) 100 mcg Tablet 100 mcg PO QAM pantoprazole 40 mg tablet,delayed release (DR/EC) 40 mg PO QAM omega-3 acid ethyl esters 1 gram Capsule 2 cap PO AMPM hydroxyzine HCl 25 mg Tablet 25 mg PO TID PRN (Reason: Itching) tamsulosin 0.4 mg Capsule 0.4 mg PO QPM Changed ferrous sulfate [Iron (ferrous sulfate)] 325 mg (65 mg iron) tablet 325 mg PO DAILY Qty: 30 0RF Rx Instructions: take SUN,TUES,THURS,SAT Discontinued warfarin 5 mg Tablet 5 mg PO PM Discharge Orders: Discharge Order (Routine); Ordered 01/12/23 Ordered By: Rubin Salcedo Admission Data Admit Date/Time: 01/08/23 19:56 Attending Provider: Rubin Salcedo Admit Provider: Kyaw Marquez Primary Care Provider: Shreyas Miller Other Providers: Kyaw Marquez ; Edi Luna ; Jensen Nicholson ; Saranya Cintron ; Stacey Caceres ; Elysia Tariq ; Jeannine Birmingham ; Chester Eduardo ; Morales Benites ; Walt Rodríguez ; Priyank Faith ; Yoel Mccallum ; Meghan Hester ; Daksha Harrison ; Hawa Will ; Umm Ritter ; Kiara Morrow ; Raymundo Christiansen ; Tonio Fair ; Jaylin Arrington ; Ros Saldivar Jr ; [facility] Other Interventions: Discharge Summary Assessment (RN) Last Done: 01/12/23 13:19
== END 2023-01-12 13:48 | disposition home or self-care (01) | DRG 377 ==
LOC: ED 16:40 → 2W 19:56 → SUATTDRO 19:56 → 2W 22:20